=== PATIENT | male | born 1935 | race Caucasian/White ===

== ENCOUNTER 2024-02-16 04:05 | Emergency (ER) | payer MEDICARE, SELFPAY ==
--- NOTE | ~2024-02-16 | CT_ITS ---
EXAMINATION: CT cervical spine wo con DATE: 02/16/2024 04:55 INDICATION: Neck injury. TECHNIQUE: Computed tomography (CT) of the cervical spine was performed without intravenous contrast. Automated exposure control and iterative reconstruction technique were employed. The dose-length pro duct was 445.22 mGy-cm. COMPARISON: CT cervical spine 09/10/2023 FINDINGS: There is kyphosis of cervical spine. There is 2 mm retrolisthesis of C3 on C4 and C4 on C5. There is 12 degrees levoscoliosis of cervical spine. There is mild chronic anterior wedging of C7 an d T1 vertebral bodies. There is severely decreased disc height from C2-C3 through T2-T3. There is int erbody fusion at C3-C4 and C5-C6. 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 There is severe right and modera te left facet joint osteoarthritis. There is mild bilateral neural foraminal stenosis. There is mild central canal stenosis. C3-C4: There is severe bilateral uncovertebral joint hypertrophy. There is moderate bilateral facet j oint osteoarthritis. There is moderate bilateral neural foraminal stenosis. There is moderate central canal stenosis. 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 There is moderate right and mild left facet joint osteoarthritis. There is moderate bilateral neural foraminal stenosis. There is mod erate central canal stenosis. 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 There is moderate bilateral face t joint osteoarthritis. There is moderate bilateral neural foraminal stenosis. There is moderate cent ral canal stenosis. 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 There is mild right and severe l eft facet joint osteoarthritis. There is mild bilateral neural foraminal stenosis. There is mild cent ral canal stenosis. C7-T1: There is severe bilateral uncovertebral joint osteoarthritis. There is severe bilateral facet joint osteoarthritis. There is mild bilateral neural foraminal stenosis. There is mild central canal stenosis. IMPRESSION: 1. No fracture. 2. Severe cervical spondylosis. Reviewed, dictated and finalized at location A. MER TESTER
--- NOTE | ~2024-02-16 | CT_ITS ---
EXAMINATION: CT brain wo con DATE: 02/16/2024 04:54 INDICATION: Head injury. TECHNIQUE: Computed tomography (CT) of the head was performed without intravenous contrast. The mA wa s adjusted according to patient size. Iterative reconstruction technique was employed. The dose-lengt h product was 605.33 mGy-cm. COMPARISON: Head CT 09/10/2023 FINDINGS: There is diffuse brain volume loss. There are scattered areas of low attenuation in the cer ebral white matter. There is no intracranial hemorrhage, acute infarction, or abnormal intracranial m ass lesion. The ventricles are normal in size. There are likely changes of ocular lens replacement bonilla rgeries. There is mucosal thickening in the paranasal sinuses including complete opacification of rig ht maxillary sinus with thickening and sclerosis of the sinus babb, consistent with chronic sinusiti s. The mastoid air cells are normal. IMPRESSION: 1. Stable moderate nonspecific cerebral white matter disease, which likely represents chronic small v essel ischemic disease. 2. Chronic sinusitis. Reviewed, dictated and finalized at location A. GRAPHY TECHNOLOGIST IMPRESSION: 1. Stable moderate nonspecific cerebral white matter disease, which likely repr esents chronic small vessel ischemic disease. 2. Chronic sinusitis.
[2024-02-16 03:59] VITALS: BP 187/76; PULSE 64; RESP 15; TEMP 36.6; O2SAT 100
--- NOTE | 2024-02-16 06:02 | ED.GENADULT ---
HPI - General Adult General Chief complaint: Fall Stated complaint: fall Time Seen by Provider: 02/16/24 04:07 History of Present Illness HPI narrative: Patient is 88-year-old gentleman who presents emergency department with chief complaint of possible head injury. Patient is on Eliquis and fell out of bed the patient reports having no complaint at this time Review of Systems Review of Systems: A 10 system review of systems was completed on the patient and is negative except for what is stated in the HPI. Nursing and ancillary documentation was reviewed. Exam Narrative: GENERAL: Well-appearing, well-nourished, and in no acute distress. HEAD: Normocephalic, atraumatic. EYES: PERRLA and EOMI. ENT: Nares clear, no rhinorrhea or epistaxis. Mucous membranes moist. NECK: Supple. CHEST: Clear to auscultation. No respiratory distress. HEART: Regular rate and rhythm. No murmur heard. Normal peripheral pulses. ABDOMEN: Soft, nontender, nondistended, normal active bowel sounds. EXTREMITIES: Normal range of motion. No edema. SKIN: Warm, dry, no rash. NEURO: No focal deficits. Alert and oriented x1 history of dementia. PSYCH: Normal mood and affect. Course Vital Signs Vital signs: Vital Signs Temperature 36.6 C 02/16/24 03:59 Pulse Rate 64 02/16/24 03:59 Respiratory Rate 15 02/16/24 03:59 Blood Pressure 187/76 H 02/16/24 03:59 Pulse Oximetry 100 02/16/24 03:59 Oxygen Delivery Room Air 02/16/24 03:59 Temperature 36.6 C 02/16/24 03:59 Pulse Rate 64 02/16/24 03:59 Respiratory Rate 15 02/16/24 03:59 Blood Pressure 187/76 H 02/16/24 03:59 Pulse Oximetry 100 02/16/24 03:59 Oxygen Delivery Room Air 02/16/24 03:59 Medical Decision Making [facility] Narrative Medical decision making narrative: Differential diagnosis includes intracranial hemorrhage, cervical spine fracture CT head showed no evidence of hemorrhage there was question of possible normal pressure hydrocephalus. The patient is a DNR comfort care measure CT C-spine showed no evidence of fracture. Vital Signs Vital Signs: Vital Signs Temperature 36.6 C 02/16/24 03:59 Pulse Rate 64 02/16/24 03:59 Respiratory Rate 15 02/16/24 03:59 Blood Pressure 187/76 H 02/16/24 03:59 Pulse Oximetry 100 02/16/24 03:59 Oxygen Delivery Room Air 02/16/24 03:59 Temperature 36.6 C 02/16/24 03:59 Pulse Rate 64 02/16/24 03:59 Respiratory Rate 15 02/16/24 03:59 Blood Pressure 187/76 H 02/16/24 03:59 Pulse Oximetry 100 02/16/24 03:59 Oxygen Delivery Room Air 02/16/24 03:59 Discharge Plan Discharge Clinical Impression: Fall from bed, Head injury Patient Disposition: NH Intermediate/Asst Living Condition: Stable Instructions: Antibiotic Form, Fall Prevention for Older Adults (ED), Head Injury (ED), Fall Prevention (ED) Patient Language: Polish Time of Disposition: 06:05
[2024-02-16 07:40] VITALS: BP 158/75; PULSE 70; RESP 15; O2SAT 95
[2024-02-16 08:06] VITALS: BP 157/90; PULSE 75; RESP 16; TEMP 36.7; O2SAT 99
--- NOTE | 2024-02-16 08:32 | PC.NURSE ---
Attempted to call to give update. No answer. Unable to leave voicemail.
--- NOTE | 2024-02-16 08:48 | PC.NURSE ---
New ETA for [facility] to transport back to [facility] is now 1130.
--- NOTE | 2024-02-16 09:00 | PC.NURSE ---
Spoke with patients on the phone at this time. Given update by this RN.
[2024-02-16 11:35] VITALS: BP 150/92; PULSE 72; RESP 19; TEMP 36.7; O2SAT 98
--- NOTE | 2024-02-16 11:35 | PC.NURSE ---
[facility] is here at this time to transport patient back to [facility]
--- OUTSIDE RECORDS SUMMARY | 2024-02-23 06:44 | XMS_ITS | Continuity of Care Document ---
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 Today was able to extend it by applying some pressure he tolerated that well we then talked about injecting it the patient has dementia his wanted to proceed with the injection today. She states it has helped previously a year and a half ago. Under sterile conditions at her request I injected the patient is right 3rd flexor tendon sheath at the A1 chad with 2 cc 0.5% bupivacaine and 10 mg of Kenalog. Patient tolerated the procedure well. Hopefully this will work for him if not I have advised her to call me in a month we could consider injecting it again. He is not really a candidate for surgical intervention due to dementia and other medical issues. She agreed she would rather avoid surgery. She will call for any further problems difficulties or questions she voiced understanding and agreed with the above plan. X-rays today were unremarkable. [email or web address] Not available 02/09/2024 14:09:28 Plan of Treatment Reminders Order Date Submit Date Provider Last Modified By Organization Details Last Modified Time Details Appointments None recorded. Lab None recorded. Referral None recorded. Procedures injection/a spiration joint/bursa (PROC) 2023 024 [email or web address] In-Office Order, Internal Use Only DO Not Attach Compendium DO Not Attach Compendium, Do Not Delete/merge, [id number] 13:36:02 Surgeries None recorded. Imaging XR, hand 2023 024 [email or web address] [facility] [place], [address], [place], [address], 4 14:10:19 Medication Orders bupivacaine HCl 0.5 % (5 mg/mL) injection solution 2023 024 [email or web address] [facility], [facility] [place], [address], 4 14:03:50 Kenalog 10 mg/mL suspension for injection 2023 024 [email or web address] [facility] [place], [address] [place], [address], 4 14:03:50 Patient TargetsNo targets recorded. Patient InstructionsNo instructions recorded. Reason for Referral None Reported. Results Created Date Observation Date Name Description Value Unit Range Abnormal Flag Note LastModifiedBy Organization Detail LastModifiedTime 02/09/20 24 XR, hand No observ ation record ed. [email or web address] [facility] [place] [address], [place], [address], 02/09/2024 14:10:17 Result Notes None recorded. Problems Name Problem SNOMED Code Status Onset Date Resolution Date Notes Provider Name and Address Organization Details Recorded Time Edema of lower extremity 269539625 Active 2019 Not Available [facility] 3 07:25:54 Trigger finger of left hand 9816784148103 9107 Active 2021 Not Available [facility] 3 07:25:54 Trigger finger of right hand 4252368421305 9101 Active 2021 Not Available [facility] 3 07:25:54 Plantar fasciitis of right foot 7364348657916 9101 Active 2019 Not Available [facility] 3 07:25:54 Hyperchole sterolemia 71074076 Active 2016 Not Available [facility] 3 07:25:54 Ingrowing nail of toe of left foot 7170646123638 9107 Active 2022 Not Available [facility] 3 07:25:54 Dry skin 63903565 Active 2021 Not Available [facility] 3 07:25:54 Insomnia 679917279 Active 2017 Not Available [facility] 3 07:25:54 Anxiety disorder 043637257 Active Not Available [facility] 3 07:25:54 Abdominal pain 55727857 Active Not Available [facility] 3 07:25:54 Gastroesop hageal reflux disease 329231490 Active Not Available [facility] 3 07:25:54 Sodium deficiency 486559978 Active Not Available [facility] 3 07:25:54 Edema 483888366 Active Not Available [facility] 3 07:25:54 Pure hyperchole sterolemia 753582177 Active Not Available [facility] 3 07:25:54 Pain in toe 509202810 Active Not Available [facility] 3 07:25:54 Pain of toe of left foot 3226933051843 08 Active 2020 Not Available [facility] 3 07:25:54 Acquired trigger finger of right middle finger 7177921936638 05 Active 2021 Not Available [facility] 3 07:25:54 Arthritis 0314051 Active 2016 Not Available [facility] 3 07:25:54 Hypertensi ve disorder 44826766 Active 2016 Not Available [facility] 3 07:25:54 Ingrowing toenail 979658878 Active 2021 Not Available [facility] 3 07:25:54 Onychomyco sis 672113295 Active 2018 Not Available [facility] 3 07:25:54 Chronic peripheral venous hypertensi on 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 Active 2021 Not Available [facility] 3 07:25:54 Hypokalemi a 19409629 Active 2021 Not Available [facility] 3 07:25:54 Hand pain 77161973 Active 2021 Not Available [facility] 3 07:25:54 Contusion of toe 51358899 Active 2020 Not Available [facility] 3 07:25:54 Essential hypertensi on 89748949 Active Not Available [facility] 3 07:25:54 COVID-19 582256340 Active 2021 Not Available [facility] 3 07:25:54 Dystrophia unguium 51500305 Active 2022 Not Available [facility] 3 07:25:54 Hyponatrem ia 59122473 Active 2016 Not Available [facility] 3 07:25:54 Bilateral hearing loss 49788018 Active 2021 Not Available [facility] 3 07:25:54 Peripheral venous insufficie ncy 48312822 Active 2022 Not Available [facility] 3 07:25:54 Lymphedema of lower extremity 260048372 Active 2022 Not Available [facility] 3 07:25:54 Ulcer of lower extremity 60474434 Active 2022 Not Available [facility] 3 07:25:54 Persistent cough 725643792 Active 2022 Not Available [facility] 3 07:25:54 Cough 30352963 Active 2022 Not Available [facility] 3 07:25:54 Fatigue 81109926 Active 2022 Not Available [facility] 3 07:25:54 Memory impairment 969399973 Active 2022 Not Available [facility] 3 07:25:54 Muscle weakness 41943686 Active 2023 RAYMOND Montesinos null, [facility] 4 12:11:53 Impacted cerumen of bilateral ears 5790952934649 108 Active 2023 DEEPIKA Houser [address], [place], [address] , [facility] [employer] [facility] 4 10:25:49 Hand pain 08636706 Active 2023 Nury Otero [employer] [employer], [facility] [employer] [facility] 4 13:34:32 Notes:Some problems listed i n Document: #[id number] could not be added to this patient's chart. Please review this document and add these problems to the patient's chart manually as needed. Problem Notes None recorded. Procedures Surgical History Date Name Laterality Status Provider Name and Address Organization Details Recorded Time 11/18/19 Wound Care-Podiatry completed Gary Lee RN [facility] [employer] [facility] 11/17/2022 15:45:29 10/21/19 23 Wound Care-Podiatry completed Sally Kilgore RN [facility] [employer] [facility] 10/20/2022 15:12:18 10/14/19 23 Wound Care-Podiatry completed Gary Lee RN [facility] [employer] [facility] 10/13/2022 16:43:47 07/30/19 23 Nail Debridement completed Alexei Mendez DPM [address], [place], [address], [facility] [employer] [facility] 08/05/2022 13:06:25 06/04/19 17 Cataract Surgery completed Not Available [facility] 02/2022 00:54:26 03/20/19 14 Colonoscopy completed Not Available [facility] 04/22/19 00:54:26 Tonsillectomy and/or Adenoidectomy completed Not Available [facility] 04/21/2022 00:54:26 Imaging Results Imaging Date Name Status LastModified by Organiz ation Details LastModified Time 02/09/2024 XR, hand completed [email or web address] [facility] [place] [address], [place], [address], 02/09/2024 14:10:17 Procedure Notes None recorded. Medical Equipment None Reported. Allergies No known drug allergies Medications Name Sig Start Date Stop Date Status Note LastModified by Organization Details LastModified Time quetiapin e 25 mg tablet TAKE 1 TABLET BY MOUTH EVERY NIGHT AT BEDTIME NEEDED active Not Available Not Available No t Available furosemid e 40 mg tablet TAKE 1 TABLET BY MOUTH EVERY DAY active Not Available Not Available No t Available buspirone 5 mg tablet TAKE ONE-HALF TABLET BY MOUTH TWICE DAILY active Not Available Not Available No t Available doxycycli ne hyclate 100 mg capsule active Not Available Not Available Not Available atorvasta tin 20 mg tablet TAKE 1 TABLET BY MOUTH EVERY DAY active Not Available Not Available No t Available ipratropi um 0.5 mg-albute rol 3 mg (2.5 mg base)/3 mL nebulizat ion soln active Not Available Not Available Not Available ammonium lactate 12 % lotion APPLY TO BOTH FEET AND LOWER LEGS DAILY NEEDED active Not Available Not Available No t Available divalproe x 250 mg tablet,de layed release active Not Available Not Available Not Available trazodone 50 mg tablet TAKE 1 TABLET BY MOUTH EVERY DAY active Not Available Not Available No t Available atorvasta tin 10 mg tablet Take 1 tablet every day by oral route as directed for 90 days. active Not Available Not Available No t Available azithromy jacoby 250 mg tablet TAKE 2 TABLETS BY MOUTH TODAY, THEN TAKE 1 TABLET DAILY FOR 4 DAYS 11/04 completed Not Available Not Available Not Available ofloxacin 0.3 % eye drops 11/04 completed Not Available Not Available Not Available fluconazo le 150 mg tablet 05/20 completed Not Available Not Available Not Available metoprolo l succinate ER 50 mg tablet,ex tended release 24 hr TAKE 1 TABLET BY MOUTH EVERY DAY active Not Available Not Available No t Available cephalexi n 250 mg capsule TAKE 1 CAPSULE BY MOUTH EVERY 8 HOURS FOR 10 DAYS 10/13 completed Not Available Not Available Not Available fluconazo le 200 mg tablet TAKE 1 TABLET BY MOUTH ONE TIME A WEEK FOR 4 WEEKS 05/20 completed Not Available Not Available Not Available bupivacai ne HCl 0.5 % (5 mg/mL) injection solution Take 20 mg by injectio n route. 12/19/ 2024 active Not Available Not Available Not Avai lable prednison e 20 mg tablet TAKE 2 TABLETS BY MOUTH EVERY DAY FOR 5 DAYS active Not Available Not Available No t Available Debrox 6.5 % ear drops INSTILL 5 DROPS INTO AFFECTED EAR(S) BY OTIC ROUTE 2 TIMES PER DAY 2023 active Not Available Not Available Not Avai lable clobetaso l 0.05 % topical cream 05/20 completed Not Available Not Available Not Available thiamine HCl (vitamin B1) 100 mg tablet Take by oral route. 06/07 completed Not Available Not Available Not Available bacitraci n 500 unit/gram topical ointment APPLY ONCE BY TOPICAL ROUTE 2 TIMES PER DAY FOR 7 DAYS 06/01 completed Not Available Not Available Not Available Klor-Con 20 mEq oral packet MIX ONE PACKET IN WATER AND DRINK ONCE DAILY DIRECTED active Not Available Not Available No t Available chlorthal idone 25 mg tablet TAKE 1 TABLET BY MOUTH DAILY active Not Available Not Available No t Available sulfameth oxazole 800 mg-trimet hoprim 160 mg tablet bid 10/13 completed Not Available Not Available Not Available Bisac-Nina c 10 mg rectal supposito ry UNW AND INSERT 1 SUPPOSIT ORY RECTALLY UTD 04/10 completed Not Available Not Available Not Available peg-elect rolyte solution 420 gram oral solution MIX AND DRINK UTD 09/20 completed Not Available Not Available Not Available aspirin 81 mg tablet,de layed release Take 1 tablet once a day by oral route. 2013 active Not Available Not Available Not Avai lable acetamino phen 500 mg tablet Take 2 tablets every 6 hours by oral route. active Not Available Not Available No t Available triamcino lone acetonide 0.1 % topical cream APPLY TOPICALL Y TWICE DAILY FOR 30 DAYS NEEDED FOR ITCHING/ RASH SCATTERE D TO BODY active Not Available Not Available No t Available acyclovir 800 mg tablet 05/20 completed Not Available Not Available Not Available ketorolac 0.5 % eye drops 11/04 completed Not Available Not Available Not Available meloxicam 7.5 mg tablet Take 1 tablet every day by oral route for 14 days. 05/20 completed Not Available Not Available Not Available terbinafi ne HCl 250 mg tablet 03/30 /2021 completed Not Available Not Available Not Available potassium chloride ER 20 mEq tablet,ex tended release(p art/cryst ) TAKE 1 TABLET BY MOUTH EVERY DAY active Not Available Not Available No t Available famotidin e 20 mg tablet active Not Available Not Available Not Available prednisol one acetate 1 % eye drops,valery pension INSTILL 1 DROP INTO AFFECTED EYE(S) 3 TIMES PER DAY STARTING AFTER SURGERY, CONTINUI NG FOR 3 WEEKS 11/04 completed Not Available Not Available Not Available lorazepam 0.5 mg tablet active Not Available Not Available Not Available tamsulosi n 0.4 mg capsule TAKE 1 CAPSULE BY MOUTH EVERY DAY active Not Available Not Available No t Available ciproflox acin 0.3 % eye drops 09/28 completed Not Available Not Available Not Available Kenalog 10 mg/mL suspensio n for injection Take 10 mg by injectio n route. 2023 active [facility]: [phone] Not Available Not Available Not Available amlodipin e 10 mg tablet Take 1 tablet every day by oral route. 09/18 completed Not Available Not Available Not Available benzonata te 100 mg capsule TAKE 1 CAPSULE BY MOUTH EVERY 8 HOURS NEEDED active Not Available Not Available No t Available doxycycli ne monohydra te 100 mg capsule tid 08/01 completed Not Available Not Available Not Available cephalexi n 500 mg capsule TAKE 1 CAPSULE BY MOUTH EVERY 8 HOURS FOR 10 DAYS active Not Available Not Available No t Available simvastat in 20 mg tablet qd 05/20 completed Not Available Not Available Not Available triamcino lone acetonide 0.1 % topical ointment 05/20 completed Not Available Not Available Not Available ranitidin e 150 mg tablet OTC 05/20 completed Not Available Not Available Not Available buspirone 10 mg tablet active Not Available Not Available Not Available prednison e 50 mg tablet 05/20 completed Not Available Not Available Not Available divalproe x 125 mg tablet,de layed release TAKE 2 TABLETS BY MOUTH TWICE A DAY active Not Available Not Available No t Available metoprolo l tartrate 50 mg tablet active Not Available Not Available Not Available betametha sone dipropion ate 0.05 % topical cream 09/18 completed Not Available Not Available Not Available felodipin e ER 10 mg tablet,ex tended release 24 hr Take 1 tablet every day by oral route. 04/10 completed Not Available Not Available Not Available bumetanid e 1 mg tablet active Not Available Not Available Not Available hydrocort isone 2.5 % topical cream active Not Available Not Available Not Available hydrochlo rothiazid e 25 mg tablet 04/10 completed Not Available Not Available Not Available mupirocin 2 % topical ointment active Not Available Not Available Not Available furosemid e 20 mg tablet active Not Available Not Available Not Available levofloxa jacoby 500 mg tablet active Not Available Not Available No t Available zolpidem 10 mg tablet TAKE 1 TABLET BY MOUTH EVERYDAY AT BEDTIME active Not Available Not Available No t Available methylpre dnisolone 4 mg tablets in a dose pack TAKE 6 TABLETS ON DAY 1 DIRECTED ON PACKAGE AND DECREASE BY 1 TAB EACH DAY FOR A TOTAL OF 6 DAYS 01/27 completed Not Available Not Available Not Available ketoconaz ole 2 % topical cream APPLY TO AFFECTED AREAS OF GROIN TWICE DAILY FOR 30 DAYS active Not Available Not Available No t Available hydroxyzi ne HCl 10 mg tablet TAKE 1 2 TABLETS BY MOUTH EVERY 6 8 HOURS NEEDED FOR ITCH 05/20 completed Not Available Not Available Not Available losartan 100 mg tablet TAKE 1 TABLET BY MOUTH EVERY DAY active Not Available Not Available No t Available fluticaso ne propionat e 50 mcg/actua tion nasal spray,[facility] 04/08 completed Not Available Not Available Not Available sertralin e 50 mg tablet active Not Available Not Available Not Available divalproe x 125 mg capsule,d elayed release sprinkle active Not Available Not Available Not Available tobramyci n 0.3 %-dexamet hasone 0.1 % eye drops,[facility] 04/08 completed Not Available Not Available Not Available hydroxyzi ne pamoate 25 mg capsule active Not Available Not Available Not Available olmesarta n 40 mg tablet TAKE 1 TABLET BY MOUTH EVERY DAY 11/04 completed Not Available Not Available Not Available Vitamin D3 25 mcg (1,000 unit) capsule Take by oral route. 2016 active Not Available Not Available Not Avai lable Benicar HCT 20 mg-12.5 mg tablet Take 1 tablet every day by oral route. 05/10 completed Not Available Not Available Not Available Benicar HCT 40 mg-25 mg tablet Take 1 tablet every day by oral route. 05/20 completed Duplicat e Not Available Not Available Not Available memantine 5 mg tablet TAKE 1 TABLET BY MOUTH EVERY DAY FOR 30 DAYS 2023 active Not Available Not Available Not Avai lable Tylenol OTC 2016 active Not Available Not Available Not Avai lable lycopene 2016 active Not Available Not Available Not Avai lable PreserVis ion AREDS 2016 active Not Available Not Available Not Avai lable brimonidi ne 0.2 %-timolol 0.5 % eye drops INSTILL 1 DROP INTO BOTH EYES TWICE A DAY active Not Available Not Available No t Available Bystolic 5 mg tablet TAKE ONE TABLET BY MOUTH ONCE DAILY DIRECTED FOR 90 DAYS 10/08 completed Not Available Not Available Not Available dextromet horphan 20 mg-quinid ine 10 mg capsule Take 1 capsule twice a day by oral route. active Not Available Not Available No t Available ropivacai ne (PF) 5 mg/mL (0.5 %) injection solution in office 11/04 completed [facility] 97609-96 05-22 Not Available Not Available Not Available Eliquis 5 mg tablet active Not Available Not Available No t Available glucosami ne 116 mg-chondr oitin 100 mg-dietar y supplemen t #25 capsule Take by oral route. 12/01 completed Not Available Not Available Not Available Farxiga 5 mg tablet TAKE 1 TABLET BY MOUTH EVERY DAY active Not Available Not Available No t Available potassium chloride ER 20 mEq tablet,ex tended release TAKE 1 TABLET BY MOUTH EVERY DAY 2022 active Not Available Not Available Not Avai lable Rexulti 1 mg tablet active Not Available Not Available No t Available Paxlovid 300 mg (150 mg x 2)-100 mg tablets in a dose pack 300 mg nirmatre lvir (two 150 mg tablets) with 100 mg ritonavi r (one 100 mg tablet) with all three tablets taken together orally twice daily for 5 days. Do not take atorvast atin for 7 days active Not Available Not Available No t Available Lagevrio 200 mg capsule (EUA) Take 4 capsules every 12 hours by oral route for 5 days. active Not Available Not Available No t Available Vitals Date Recorded Body height Body mass index (BMI) Body weight Provider Name and Address Organization Details Last Updated DateTime 02/09/2024 167.64 cm 29.1 kg/m2 51970.63 g Mag Renae [place] [facility] 02/09/2024 13:41:48 Social History Question Answer Notes LastModified by Organization Details LastModified Time Tobacco Smoking Status Former Smoker Not Available [facility] 04/21/2022 00:52:21 Do You Have An Advance Directive? No [email or web address].[id number] [id number] Information not available 04/21/2022 What Is Your Level Of Alcohol Consumption? Moderate Patient Reported One Mixed Drink A Night. [id number].0301 [id number] Information not available 04/21/2022 Are You Blind Or Do You Have Difficulty Seeing? No MIGRATION.0301 [id number] Information not available 04/21/2022 What Is Your Level Of Caffeine Consumption? Moderate MIGRATION.0301 [id number] Information not available 04/21/2022 How Much Tobacco Do You Chew? None [email or web address].0301 [id number] Information not available 04/21/2022 In The 14 Days Before Symptom Onset, Have You Had Close Contact With A Laboratory-conf irmed COVID-19 While That Case Was Ill? No MIGRATION.0301 [id number] Information not available 04/21/2022 In The 14 Days Before Symptom Onset, Have You Had Close Contact With A Person Who Is Under Investigation For COVID-19 While That Person Was Ill? No [id number].0301 [id number] Information not available 04/21/2022 Are You Currently Employed? No Information not available 06/01/2022 Are You Deaf Or Do You Have Serious Difficulty Hearing? Yes Patient Wears Bilateral Hearing Aids; Still Having A Hard Time Hearing Information not available 06/01/2022 What Type Of Diet Are You Following? REGULAR MIGRATION.0301 [id number] Information not available 04/21/2022 Which Illicit Or Recreational Drugs Have You Used? None MIGRATION.0301 [id number] Information not available 04/21/2022 Do You Or Have You Ever Used E-cigarettes Or Vape? Never Used Electronic Cigarettes MIGRATION.0301 [id number] Information not available 04/21/2022 What Is The Highest Grade Or Level Of School You Have Completed Or The Highest Degree You Have Received? [id number] MIGRATION.0301 [id number] Information not available 04/21/2022 What Is Your Occupation? RETIRED MIGRATION.030 [id number] Information not available 04/21/2022 How Many Days Of Moderate To Strenuous Exercise, Like A Brisk Walk, Did You Do In The Last 7 Days? 0 MIGRATION.0301 [id number] Information not available 04/21/2022 Have There Been Any Changes To Your Family Or Social Situation? No MIGRATION.0301 [id number] Information not available 04/21/2022 What Is The Fluoride Status Of Your Home? Unknown MIGRATION.0301 [id number] Information not available 04/21/2022 When Did You Quit Smoking? 17+yearssincelastc igarette MIGRATION.030 [id number] Information not available 04/21/2022 Are There Any Guns Present In Your Home? No MIGRATION.0301 [id number] Information not available 04/21/2022 Do You Use Insect Repellent Routinely? No MIGRATION.0301 [id number] Information not available 04/21/2022 Where Do You Live? SingleLevelHouse MIGRATION.0301 [id number] Information not available 04/21/2022 Do You Have A Medical Power Of Textile Machine Operator? No MIGRATION.0301 [id number] Information not available 04/21/2022 What Was The Date Of Your Most Recent Tobacco Screening? 01/27/2023 [email or web address] Information not available 01/27/2023 Have You Ever Been Counseled For Unhealthy Alcohol Use? No MIGRATION.0301 [id number] Information not available 04/21/2022 Do You Have Any Pets? No MIGRATION.0301 [id number] Information not available 04/21/2022 What Is Your Relationship Status? MIGRATION.0301 [id number] Information not available 04/21/2022 Do You Use Your Seat Belt Or Car Seat Routinely? Yes MIGRATION.0301 [id number] Information not available 04/21/2022 Do You Have Smoke And Carbon Monoxide Detectors In Your Home? Yes MIGRATION.0301 [id number] Information not available 04/21/2022 Are You Passively Exposed To Smoke? Yes MIGRATION.0301 [id number] Information not available 04/21/2022 Do You Or Have You Ever Used Smokeless Tobacco? Never Used Smokeless Tobacco MIGRATION.0301 [id number] Information not available 04/21/2022 Are There Any Smokers In Your House? No MIGRATION.0301 [id number] Information not available 04/21/2022 How Much Tobacco Do You Smoke? No MIGRATION.0301 [id number] Information not available 04/21/2022 What Types Of Sporting Activities Do You Participate In? None MIGRATION.0301 [id number] Information not available 04/21/2022 Do You Feel Stressed (tense, Restless, Nervous, Or Anxious, Or Unable To Sleep At Night)? [id number] MIGRATION.0301 [id number] Information not available 04/21/2022 Do You Use Any Illicit Or Recreational Drugs? No MIGRATION.[id number] [id number] Information not available 04/21/2022 Do You Use Sunscreen Routinely? No MIGRATION.0301 [id number] Information not available 04/21/2022 Has Tobacco Cessation Counseling Been Provided? No MIGRATION.0301 [id number] Information not available 04/21/2022 Have You Recently Traveled Abroad? No MIGRATION.0301 [id number] Information not available 04/21/2022 Do You Have Any Dietary Restrictions? No MIGRATION.0301 [id number] Information not available 04/21/2022 Do You Or Have You Ever Used Any Other Forms Of Tobacco Or Nicotine? No MIGRATION.0301 [id number] Information not available 04/21/2022 Sex: Male Functional Status Question Answer Note LastModified by [employer] Details LastModified Time Do you have difficulty walking or climbing stairs? Yes MIGRATION.[id number] 026 Information not available 04/21/2022 Do you have transportation difficulties? No MIGRATION.[id number] 026 Information not available 04/21/2022 Are you able to walk? YESWOREST MIGRATION.[id number] 026 Information not available 04/21/2022 Do you have difficulty doing errands alone? Yes MIGRATION.[id number] 026 Information not available 04/21/2022 Are you able to care for yourself? Yes MIGRATION.3157303 026 Information not available 04/21/2022 Do you have difficulty dressing or bathing? No MIGRATION.8849302 026 Information not available 04/21/2022 What is your exercise level? None MIGRATION.[id number] 026 Information not available 04/21/2022 Mental Status Question Answer Note LastModified by Organizat ion Details LastModified Time Do you have difficulty concentrating, remembering or making decisions? Yes MIGRATION.[id number] 6 Information not available 04/21/2022 Family History Relationship Description Onset Age of this Age Resolved Age Notes LastModified by Organization Details LastModified Time Mother Myocardial infarction 69 MIGRATION.824 [id number] Not available 04/21/2022 00:54:34 Father Alzheimer's disease 75 MIGRATION.110 [id number] Not available 04/21/2022 00:54:34 Brother Cerebrovascu lar accident 78 MIGRATION.721 [id number] Not available 04/21/2022 00:54:34 Brother Alzheimer's disease deceas ed MIGRATION.257 [id number] Not available 04/21/2022 00:54:34 Brother Myocardial infarction MIGRATION.356 [id number] Not available 04/21/2022 00:54:34 Unspecified Relation Family history of Hypertension MIGRATION.834 [id number] Not available 04/21/2022 00:54:34 Son Atrial fibrillation Not available 0 11/04/2022 14:44:06 Notes:NO ENT Medical History Condition Response NERVE DISEASE N BLINDNESS N RHEUMATIC FEVER N KIDNEY STONES N BLADDER PROBLEMS N MRSA N OTHER # 1 Y POLIO N LUNG DISEASE/DISORDER Y COPD N RADIATION / CHEMOTHERAPY N Other # 2 N BLOOD DISEASES N SURGERY N EAR OR HEARING PROBLEMS N MUMPS N DEPRESSION (INCLUDING POST ) N BOWEL PROBLEMS N STROKE/TIA N ULCERS N BENIGN PROSTATIC HYPERPLASIA N MEASLES N MYOCARDIAL INFARCTION N OBESITY N GERD/NAUSEA N ANEURYSM N URINARY/BLADDER/KIDNEY PROBLEMS Y CORONARY ARTERY DISEASE (CAD) N ADDICTION CONCERNS N Impotence N ENDOMETRIOSIS N USE OF BLOOD THINNERS Y SKIN PROBLEMS Y GASTROINTESTINAL DISORDER Y PERIPHERAL VASCULAR DISEASE N MUSCLE,JOINT OR BONE PROBLEMS N GASTROINTESTINAL BLEEDING N BLOOD CLOTS Y ASTHMA N CATARACTS N ERECTILE DYSFUNCTION N VARICOSITIES N GI PROBLEMS Y Low Testosterone N INFERTILITY N AIDS/HIV N CHEMOTHERAPY / RADIATION N LIVER DISEASE N MALE HYPOGONADISM N HYPERTENSION Y Deficiency N ANXIETY DISORDER Y BLOOD TRANSFUSION N ANEMIA/BLOOD DISORDER N CHRONIC EAR INFECTIONS N BRONCHITIS N TUBERCULOSIS N GLAUCOMA N FOOT PROBLEM N DIVERTICULITIS N CHICKENPOX N SLEEP APNEA N INFECTIOUS DISEASE N HEART ARRHYTHMIA N PROSTATE Y INSOMNIA Y HIGH CHOLESTEROL / HYPERLIPIDEMIA Y EYE PROBLEMS Y HYPERTHYROIDISM N NEUROLOGICAL PROBLEMS N EDEMA N CHRONIC PAIN SYNDROME N HYPOTHYROIDISM N CAROTID BLOCKAGE N CONSTIPATION N BACK / NECK PROBLEMS N HAVE YOU BEEN HOSPITALIZED OR SEEN IN TH E ER IN THE PAST YEAR ? Y ATHEROSCLEROSIS N BREAST PROBLEMS N DIALYSIS N ECZEMA N OSTEOPOROSIS N ARTHRITIS N APPENDICITIS N DIABETES, TYPE N BAD TEETH N ENT Y HEARTBURN / REFLUX N AUTISM SPECTRUM DISORDER (ASD) N HEPATITIS / LIVER DISEASE N GOUT N SLEEP DISORDER N ALZHEIMER'S DISEASE N Brain Problems N HERPES N DEMENTIA N SEIZURES/EPILEPSY N HEADACHES/MIGRAINES N VASCULAR DISEASE Y PACEMAKER N Blood Disorder N DIZZINESS N KIDNEY DISEASE N HEART DISEASE/HEART PROBLEMS N MULTIPLE SCLEROSIS N CARDIAC ARRHYTHMIA N CANCER: SPECIFY N Gall Stones N ATRIAL FIBRILLATION N PULMONARY EMBOLISM N AUTOIMMUNE DISEASE N Immunizations Vaccine Type Date Status Note Provider Nam e and Address Organization Details Recorded Time Influenza, high-dose, trivalent, PF 7 completed Not Available [facility] 03/30/2023 07:12:14 Influenza, split virus, trivalent, preservative 6 completed Not Available [facility] 03/30/2023 07:12:14 COVID-19, mRNA, LNP-S, PF, 30 mcg/0.3 mL dose 1 completed Not Available [facility] 03/30/2023 07:12:14 COVID-19, mRNA, LNP-S, PF, 30 mcg/0.3 mL dose 1 completed Not Available [facility] 03/30/2023 07:12:14 influenza, unspecified formulation 5 completed Not Available [facility] 03/30/2023 07:12:14 Influenza, high-dose, quadrivalent, PF 2 completed Not Available [facility] 03/30/2023 07:12:14 Influenza, high-dose, quadrivalent, PF 0 completed Not Available [facility] 03/30/2023 07:12:14 Influenza, high-dose, trivalent, PF 8 completed Not Available [facility] 03/30/2023 07:12:14 Past Encounters Encounter ID Performer Location Encounter Start Date Encounter Closed Date Diagnosis/Indication Diagnosis SNOMED-CT Code Diagnosis ICD10 Code [id number] EUGENIA Wooten [facility] [address] [place] [address] 02/09/2024 13:24:06 02/09/2024 14:02:05 Acquired trigger finger of right middle finger [id number] 92789 M65.331 Hand pain [id number] M79.6 43 Health Concerns Section Related Observation LastModified by Organization Detai ls LastModified Time None Recorded Concern Status LastModified by Organization Details LastModified Time None Recorded Payers Encounter Date Sequence Insurance Name Policy Number Policy Thomas Covered Member ID Thomas Member ID Guarantor Name 02/09/2024 1 MEDICARE B: [facility] MEDICARE Christiano Price [id number] Christiano Angel Albert 02/09/2024 2 [id number]PP[place]) [id number] Christiano Price [id number] Christiano Price Notes Date Note Type Note Provider Name and Address Organization Details Recorded Time 02/09/2024 text/html The patient is a n 88-year-old male who presents with a 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 He was last seen by Dr. Urias a year and a half ago and a shot of cortisone gave him good relief. He comes in today with his finger locked into flexion he and his are unable to extend it she is also elderly and so she has a difficult time trying to get his finger straight. He has a lot of pain and tenderness in the flexor tendon sheath and basically sits with his hand and fingers flexed all day. He has a hard time feeding himself and holding a utensil because he has his middle finger locked down. He also has dementia and is a intermediate resident. He is not a great candidate for surgical intervention she would rather try to get by with conservative measures. She states the past few weeks his finger has been locked completely and he has very limited use of his hand because of that. He is complaining of pain and tenderness in the palm on the flexor tendon sheath. She states he has had a chronic trigger finger but is much worse lately. New past medical history sheet was reviewed and signed on the intake sheet of today's date drug allergies current medications family social history previous surgical history 10 point review of systems was reviewed and discussed in detail today with the patient. EUGENIA Wooten [address] [facility], [facility] [address], [place], [address], [place] [employer] 02/09/2024 14:11:15
--- OUTSIDE RECORDS SUMMARY | 2024-02-23 06:44 | XMS_ITS | Data Portability ---
Author Organization [place] [facility], Main Office Address [address] [place] [address] Care Team Providers Care Cue Selector Name Role Phone DENNIS PAYAN Primary Care Provider DENNIS PAYAN Referring Provider [phone] Assessment Encounter Date Assessment Date Assessment LastModified by Organization Details LastModified Time 11/04/2022 11/04/2022 Chest x-ray continue current therapy follow-up in 4 months Not available 11/07/2022 15:19:41 01/27/2023 01/27/2023 Prednisone for a week for his cough diuretic usage discussed he will try 20 m of furosemide daily too much running to the bathroom in the middle night on 40 he will follow-up with me in about 4 months the let me know if his cough isn't better in a week or so some blood work for fatigue and memory loss. It was also discussed with the with the patient that use of sleeping aids can make memory loss worse [email or web address] Not available 01/28/2023 10:40:21 02/09/2024 02/09/2024 By history and exam the [...] Modified Time Details Appointments None recorded. Lab lipid panel, serum 2022 023 [facility], [address] [place] [address] [place], [address], 3 20:15:49 CMP, serum or plasma 2022 023 [facility], [address] [place] [address] [place], [address], 3 20:16:04 vitamin B12 + folate, serum or blood 2022 023 [email or web address] [facility], [address] [place] [address] [place], [address], 3 09:59:36 TSH, serum or plasma 2022 023 [facility], [address] [place] [address] [place], [address], 3 20:47:22 CBC w/ auto diff 2022 023 [facility], [address] [place] [address] [place], [address], 4 23:57:23 T4, free, serum [address] [place], [address], 3 20:38:47 T3, free, serum or plasma 2022 023 [facility], [address] [place] [address] [place], [address], 3 20:38:52 Referral None recorded. Procedures cerumen removal (PROC) 2023 024 [email or web address] In-Office Order, Internal Use Only DO Not Attach Compendium DO Not Attach Compendium, Do Not Delete/merge, [id number] 4 12:29:37 injection/a spiration joint/bursa (PROC) 2023 024 [email or web address] In-Office Order, Internal Use Only DO Not Attach Compendium DO Not Attach Compendium, Do Not Delete/merge, [id number] 4 13:36:02 Surgeries None recorded. Imaging XR, chest, 2 view 2022 023 [facility] [address] [place], [address], 3 20:36:02 XR, hand 2023 024 [email or web address] [facility] [place], [address], [place], [address], 4 14:10:19 Medication Orders prednisone 20 mg tablet 2022 023 [email or web address] [facility], [address] [place], [address], 3 16:33:19 Debrox 6.5 % ear drops 2023 024 [facility] [employer] [facility], [facility] [place], [address], 4 12:38:52 bupivacaine HCl 0.5 % (5 mg/mL) injection solution 2023 024 [email or web address] [facility] [employer] [facility], [facility] [place], [address], 4 14:03:50 Kenalog 10 mg/mL suspension for injection 2023 024 [email or web address] [facility] [employer], [address] [place], [address], 14:03:50 Patient TargetsNo targets recorded. Patient Instructions Encounter Date Encounter Id Patient Instructions Last Modified By Organization Details Last Modified Time 11/02/2023 [id number] Discussed with patient's spouse inability to safely remove cerumen impaction given his advanced dementia and inability to cooperate during procedure. Advised use of Debrox drops for cerumen softening. Patient's spouse verbally understands care plan. Not available 11/02/2023 10:37:47 Reason for Referral None Reported. Results Created Date Observation Date Name Description Value Unit Range Abnormal Flag Note LastModifiedBy Organization Detail LastModifiedTime 01/28/2001/27/2023 LIPID PANEL cholesterol 165 mg/dL 140-19 9 NIH RASHMI NSUS RECOM MENDA TION FOR ELVIS STERO L: ADULT CHILD LOW RISK: <200 <170 BORDE RLINE : <200- 239 ----- HIGH RISK: >240 >200 Not Available [facility] (Lab) [address] [place], [address], 01/27/2023 20:15:49 01/28/2001/27/2023 LIPID PANEL triglyceride s 162 mg/dL 0-150 high NIH RASHMI NSUS REPOR T RECOM MENDA TION FOR TRIGL YCERI JEROME: ADULT CHILD LOW RISK: <150 ----- BODER LINE: 150-1 99 ----- HIGH RISK: >200 ----- Not Available [facility] (Lab) [address] [place], [address], 01/27/2023 20:15:49 01/28/2001/27/2023 LIPID PANEL HDL cholesterol 46 mg/dL 40- Not Available [facility] (Lab) [address] [place], [address], 01/27/2023 20:15:49 01/28/20 23 01/27/2023 LIPID PANEL LDL cholesterol, calculated 87 mg/dL 0-130 NIH RASHMI NSUS REPOR T RECOM MENDA TIONS FOR LDL: ADULT CHILD LOW RISK <130 <110 (OPTI MAL LDL) <100 ----- BORDE RLINE : 130-1 59 ----- HIGH RISK: >160 >130 A TRIGL YCERI DE RESUL T >400 INVAL IDATE S THE CALCU LATIO N FOR LDL FRACT IONAT ION - THE LDL RESUL T WILL NOT BE REPOR AURE. Not Available [facility] (Lab) [address] [place], [address], 01/27/2023 20:15:49 01/28/20 23 01/27/2023 COMPR EHENS ERIC METAB OLIC PANEL sodium 138 mmol/ L 137-14 5 Not Available [facility] (Lab) [address] [place], [address], 01/27/2023 20:16:04 01/28/20 23 01/27/2023 COMPR EHENS ERIC METAB OLIC PANEL potassium 4.2 mmol/ L 3.5-5. 1 Not Available [facility] (Lab) [address] [place], [address], 01/27/2023 20:16:04 01/28/20 23 01/27/2023 COMPR EHENS ERIC METAB OLIC PANEL chloride 104 mmol/ L 98-107 Not Available [facility] (Lab) [address] [place], [address], 01/27/2023 20:16:04 01/28/20 23 01/27/2023 COMPR EHENS ERIC METAB OLIC PANEL carbon dioxide 28 mmol/ L 22-30 Not Available [facility] (Lab) [address] [place], [address], 01/27/2023 20:16:04 01/28/20 23 01/27/2023 COMPR EHENS ERIC METAB OLIC PANEL anion gap 10.2 mmol/ L 14-22 low Not Available [facility] (Lab) [address] [place], [address], 01/27/2023 20:16:04 01/28/20 23 01/27/2023 COMPR EHENS ERIC METAB OLIC PANEL glucose 97 mg/dL 70-99 Not Available [facility] (Lab) [address] [place], [address], 01/27/2023 20:16:04 01/28/20 23 01/27/2023 COMPR EHENS ERIC METAB OLIC PANEL BUN 23 mg/dL 8-19 high Not Available [facility] (Lab) [address] [place], [address], 01/27/2023 20:16:04 01/28/20 23 01/27/2023 COMPR EHENS ERIC METAB OLIC PANEL creatinine 1.30 mg/dL 0.66-1 .25 high Not Available [facility] (Lab) [address] [place], [address], 01/27/2023 20:16:04 01/28/20 23 01/27/2023 COMPR EHENS ERIC METAB OLIC PANEL GFR 52 Refer ence Range : Arbon ge GFR Healt hy Adult : >60 mL/mi n/1.7 3 m2 Chron ic Kidne y Disea se: 15-60 mL/mi n/1.7 3 m2 Kidne y Failu re: <15/m L/min /1.73 m2 www.n iddk. nih.g ov The MDRD study equat ion has not been valid ated in child melany <18 years of age; pregn ant women ; the elder ly >85 years of age; or in some racia l or ethni c subgr oups, such as Hispa nics. Outsi de the valid ated yg eters , estim ated GFR is less accur ate, requi ring clini shawna judgm ent on a case- by-ca se basis . Clini shawna inter preta tion for other races and ages must be made by the clini cara. The MDRD study equat ion has not been valid ated for the evalu ation of serum creat inine relat ed to nutri brandi l statu s or medic ation usage . For perso ns <18 years of age, a pedia tric GFR calcu lator is avail able on the [facility] websi te: https ://sarah yoo.o solitario/pr ofess ional s/kdo qi/gf r_cal culat or Not Available [facility] (Lab) [address] [place], [address], 01/27/2023 20:16:04 01/28/20 23 01/27/2023 COMPR EHENS ERIC METAB OLIC PANEL alkaline phosphatase 66 U/L 38-126 Not Available [facility] (Lab) [address] [place], [address], 01/27/2023 20:16:04 01/28/20 23 01/27/2023 COMPR EHENS ERIC METAB OLIC PANEL alanine aminotransfe rase 18 U/L 0-50 Not Available [facility] (Lab) [address] [place], [address], 01/27/2023 20:16:04 01/28/20 23 01/27/2023 COMPR EHENS ERIC METAB OLIC PANEL aspartate aminotransfe rase 25 U/L 15-46 Not Available [facility] (Lab) [address] [place], [address], 01/27/2023 20:16:04 01/28/20 23 01/27/2023 COMPR EHENS ERIC METAB OLIC PANEL bilirubin, total 0.50 mg/dL 0.20-1 .30 Not Available [facility] (Lab) [address] [place], [address], 01/27/2023 20:16:04 01/28/20 23 01/27/2023 COMPR EHENS ERIC METAB OLIC PANEL calcium 9.9 mg/dL 8.4-10 .2 Not Available [facility] (Lab) [address] [place], [address], 01/27/2023 20:16:04 01/28/20 23 01/27/2023 COMPR EHENS ERIC METAB OLIC PANEL total protein 6.3 g/dL 6.3-8. 2 Not Available [facility] (Lab) [address] [place], [address], 01/27/2023 20:16:04 01/28/20 23 01/27/2023 COMPR EHENS ERIC METAB OLIC PANEL albumin 3.4 g/dL 3.0-4. 4 Not Available [facility] (Lab) [address] [place], [address], 01/27/2023 20:16:04 01/28/20 23 01/27/2023 COMPR EHENS ERIC METAB OLIC PANEL globulin 2.9 g/dL 2.6-4. 2 Not Available [facility] (Lab) [address] [place], [address], 01/27/2023 20:16:04 01/28/20 23 01/27/2023 COMPR EHENS ERIC METAB OLIC PANEL A/G ratio 1.2 ratio 1.0-2. 0 Not Available [facility] (Lab) [address] [place], [address], 01/27/2023 20:16:04 01/28/20 23 01/27/2023 T4 FREE free T4 1.04 NG/dL 0.78-2 .19 Not Available [facility] (Lab) [address] [place], [address], 01/27/2023 20:38:46 01/28/20 23 01/27/2023 T3 FREE free T3 4.0 pg/mL 2.77-5 .27 Not Available [facility] (Lab) [address] [place], [address], 01/27/2023 20:38:52 01/28/20 23 01/27/2023 TEST NOT PERFO RMED test not performed SEE COMMEN T CBC TEST NOT PERFO RMED DUE TO EDTA SPECI MEN CLOTT ED. Not Available [facility] (Lab) [address] [place], [address], 01/27/2023 20:40:33 01/28/20 23 01/27/2023 TSH thyroid-stim ulating hormone 1.350 uIU/m L 0.465- 4.680 Not Available [facility] (Lab) [address] [place], [address], 01/27/2023 20:47:22 01/28/20 23 01/27/2023 VITAM IN B12 (JAKUB RITU ) vb12 >1000 pg/mL 239-93 1 high Not Available [facility] (Lab) [address] [place], [address], 01/27/2023 22:24:05 01/28/20 23 01/27/2023 FOLAT E, SERUM /PLAS MA folate 8.47 NG/mL 2.76-2 0.0 Not Available [facility] (Lab) [address] [place], [address], 01/27/2023 22:24:23 10/20/19 23 10/19/2022 US, doppl er, venou s No observ ation record ed. [email or web address] [facility] [address], [place], [address], 11/04/2022 17:12:48 10/20/19 23 10/19/2022 US, echoc ardio gram No observ ation record ed. [email or web address] [facility] [address], [place], [address], 11/04/2022 17:14:30 11/05/19 23 XR, chest , 2 view [facility] [address] [place] [address] Patien t Name: RAHAT ASHLEY ion #: [id number] Sex: M : 1935 9 Dictat ed By: Carter perez Attend ing Physic arminda: CARTER ARGUETA Orderi ng Physic arminda: CARTER ARGUETA Exam Date: 2022 14:45 PM Exam Name: XR CHEST 2V Admitt ing Diagno sis(es ): CLINIC AL INFORM ATION: Cough. TECHNI QUE: Fronta l and latera l chest radiog raphs were obtain ed. COMPAR MAMIE: None. FINDIN GS: Lungs: Mild atelec tasis in the left lung base. No focal consol idatio n. Small calcif ied granul omas are seen. Cardia c: Heart size is at the upper limits of normal . Pulmon velasquez vascul ature: Unrema rkable Medias tinum/ joy: Within normal limits . 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 Other: No other signif icant findin g. IMPRES MELVI: No eviden ce of acute diseas e in the chest. Nonacu te findin gs as descri bed above. HS:Y Electr onical ly Signed by: Carter perez at 2022 19:34: 49 PM Page 1 [email or web address] [facility] (Imaging) [address] [place], [address], 11/09/2022 14:29:49 03/14/19 24 03/14/2023 XR, chest , 2 view No observ ation record ed. [address], [address], 03/15/2023 19:10:45 03/14/19 24 03/14/2023 CT, brain , w/o contr ast No observ ation record ed. [address], [address], 03/15/2023 19:10:54 03/14/19 24 03/14/2023 CT, abdom en + pelvi s, w/o contr ast No observ ation record ed. [address], [place], [address], 03/21/2023 16:14:10 03/15/19 24 03/15/2023 josh cardenas ow study No observ ation record ed. [address], [place], [address], 03/21/2023 16:14:20 03/15/19 24 03/15/2023 MRI, brain , w/o contr ast No observ ation record ed. [address], [place], [address], 03/21/2023 16:14:54 04/05/19 24 04/05/2023 XR, chest No observ ation record ed. [address], [place], [address], 04/12/2023 13:14:07 04/05/19 24 04/05/2023 CT, abdom en + pelvi s, w/ contr ast No observ ation record ed. [address], [place], [address], 04/12/2023 13:14:21 04/05/19 24 04/05/2023 XR, chest No observ ation record ed. [address], [place], [address], 04/12/2023 13:14:34 04/07/19 24 04/07/2023 XR, chest No observ ation record ed. [address], [place], [address], 04/12/2023 14:15:23 04/08/19 24 04/08/2023 XR, chest No observ ation record ed. [address], [place], [address], 04/12/2023 14:31:54 04/08/19 24 04/08/2023 XR, chest No observ ation record ed. [address], [place], [address], 04/12/2023 14:32:11 04/08/19 24 04/08/2023 , [facility] ardio gram No observ ation record ed. [address], [place], [address], 04/12/2023 14:33:17 04/09/19 24 04/09/2023 XR, chest No observ ation record ed. [address] [facility], [place], [address], 04/12/2023 14:35:58 04/10/19 24 04/10/2023 XR, chest No observ ation record ed. [address] [facility], [place], [address], 04/13/2023 11:21:04 04/11/19 24 04/11/2023 XR, chest No observ ation record ed. [address] [facility], [place], [address], 04/13/2023 11:22:03 04/13/19 24 04/13/2023 XR, chest No observ ation record ed. [address] [facility], [place], [address], 04/20/2023 15:53:19 04/14/19 24 04/14/2023 XR, chest No observ ation record ed. [address], [place], [address], 04/20/2023 15:53:20 04/14/19 24 04/14/2023 US, retro perit oneum No observ ation record ed. [email or web address] [address], [place], [address], 04/20/2023 15:53:20 05/23/19 24 05/23/2023 josh cardenas ow study No observ ation record ed. [address], [place], [address], 05/28/2023 16:28:16 05/27/19 24 05/23/2023 josh cardenas ow study No observ ation record ed. [address], [place], [address], 05/28/2023 14:48:02 02/09/20 24 XR, hand No observ ation record ed. [email or web address] [facility] [place] [address] [facility] [address], [place], [address], 02/09/2024 14:10:17 Result Notes None recorded. Problems Name Problem SNOMED Code Status Onset Date Resolution Date Notes Provider Name and Address Organization Details Recorded Time Edema of lower extremity 849203220 Active 2019 Not Available [facility] 3 07:25:54 Trigger finger of left hand 4889726348258 9107 Active 2021 Not Available [facility] 3 07:25:54 Trigger finger of right hand 2392694467862 9101 Active 2021 Not Available [facility] 3 07:25:54 Plantar fasciitis of right foot 7498632223924 9101 Active 2019 Not Available [facility] 3 07:25:54 Hyperchole sterolemia 86334929 Active 2016 Not Available [facility] 3 07:25:54 Ingrowing nail of toe of left foot 3492205417577 9107 Active 2022 Not Available [facility] 3 07:25:54 Dry skin 68093193 Active 2021 Not Available [facility] 3 07:25:54 Insomnia 163771535 Active 2017 Not Available [facility] 3 07:25:54 Anxiety disorder 085151846 Active Not Available [facility] 3 07:25:54 Abdominal pain 53224694 Active Not Available [facility] 3 07:25:54 Gastroesop hageal reflux disease 044401386 Active Not Available [facility] 3 07:25:54 Sodium deficiency 501067432 Active Not Available [facility] 3 07:25:54 Edema 314958477 Active Not Available [facility] 3 07:25:54 Pure hyperchole sterolemia 153889831 Active Not Available [facility] 3 07:25:54 Pain in toe 659493455 Active Not Available [facility] 3 07:25:54 Pain of toe of left foot 2921163442166 08 Active 2020 Not Available [facility] 3 07:25:54 Acquired trigger finger of right middle finger 8825799939377 05 Active 2021 Not Available [facility] 3 07:25:54 Arthritis 8177023 Active 2016 Not Available [facility] 3 07:25:54 Hypertensi ve disorder 22435744 Active 2016 Not Available [facility] 3 07:25:54 Ingrowing toenail 009039823 Active 2021 Not Available [facility] 3 07:25:54 Onychomyco sis 576921834 Active 2018 Not Available [facility] 3 07:25:54 Chronic peripheral venous hypertensi on 181110006 Active 2021 Not Available [facility] 3 07:25:54 Hypokalemi a 39944224 Active 2021 Not Available [facility] 3 07:25:54 Hand pain 88049853 Active 2021 Not Available [facility] 3 07:25:54 Contusion of toe 85042792 Active 2020 Not Available [facility] 3 07:25:54 Essential hypertensi on 13277241 Active Not Available [facility] 3 07:25:54 COVID-19 627953805 Active 2021 Not Available [facility] 3 07:25:54 Dystrophia unguium 11841492 Active 2022 Not Available [facility] 3 07:25:54 Hyponatrem ia 97216807 Active 2016 Not Available [facility] 3 07:25:54 Bilateral hearing loss 91905415 Active 2021 Not Available [facility] 3 07:25:54 Peripheral venous insufficie ncy 13447055 Active 2022 Not Available [facility] 3 07:25:54 Lymphedema of lower extremity 406259129 Active 2022 Not Available [facility] 3 07:25:54 Ulcer of lower extremity 95288300 Active 2022 Not Available [facility] 3 07:25:54 Persistent cough 592669254 Active 2022 Not Available [facility] 3 07:25:54 Cough 71147726 Active 2022 Not Available [facility] 3 07:25:54 Fatigue 43423279 Active 2022 Not Available [facility] 3 07:25:54 Memory impairment 487874787 Active 2022 Not Available [facility] 3 07:25:54 Muscle weakness 78888187 Active 2023 RAYMOND Montesinos null, [place] - [employer] 4 12:11:53 Impacted cerumen of bilateral ears 9398332743463 108 Active 2023 Debbie Bliss, ENGAGEMENT DIRECTOR [address] [facility], [facility] [address], [place], [address] , [facility] [employer] [place] 4 10:25:49 Hand pain 89753235 Active 2023 Nury OteroAVI null, [facility] [employer] [facility] 13:34:32 Notes:Some problems listed i n Document: #[id number] could not be added to this patient's chart. Please review this document and add these problems to the patient's chart manually as needed. Problem Notes None recorded. Procedures Surgical History Date Name Laterality Status Provider Name and Address Organization Details Recorded Time 11/18/19 Wound Care-Podiatry completed Gary Lee RN [facility] [employer] [facility] 11/17/2022 15:45:29 10/21/19 Wound Care-Podiatry completed Sally Kilgore RN [facility] [employer] [facility] 10/20/2022 15:12:18 10/14/19 Wound Care-Podiatry completed Gary Lee RN [facility] [employer] [facility] 10/13/2022 16:43:47 07/30/19 Nail Debridement completed Alexei Mendez DPM [address] [facility], [address], [address], [facility] [employer] [facility] 08/05/2022 13:06:25 06/04/19 17 Cataract Surgery completed Not Available [facility] 02/2022 00:54:26 03/20/19 14 Colonoscopy completed Not Available [facility] 04/22/19 00:54:26 Tonsillectomy and/or Adenoidectomy completed Not Available [facility] 04/21/2022 00:54:26 Imaging Results Imaging Date Name Status LastModified by Organization Details LastModified Time 10/19/2022 US, doppler, venous completed [email or web address] [facility] [address], [place], [address], 11/04/2022 17:12:48 10/19/2022 US, echocardiogram completed [email or web address] [facility] [address], [place], [address], 11/04/2022 17:14:30 11/04/2022 XR, chest, 2 view completed [email or web address] [facility] (Imaging) [address], [place], [address], 11/09/2022 14:29:49 03/14/2023 XR, chest, 2 view completed [address] [facility], [place], [address], 03/15/2023 19:10:45 03/14/2023 CT, brain, w/o contrast completed [address] [address], [place], [address], 03/15/2023 19:10:54 03/14/2023 CT, abdomen + pelvis, w/o contrast completed [address], [address], 03/21/2023 16:14:10 03/15/2023 barium swallow study completed [address] [address], [place], [address], 03/21/2023 16:14:20 03/15/2023 MRI, brain, w/o contrast completed [address] [address], [place], [address], 03/21/2023 16:14:54 04/05/2023 XR, chest completed [address] [address], [place], [address], 04/12/2023 13:14:07 04/05/2023 CT, abdomen + pelvis, w/ contrast completed [address], [address], 04/12/2023 13:14:21 04/05/2023 XR, chest completed [address], [address], 04/12/2023 13:14:34 04/07/2023 XR, chest completed [address], [address], 04/12/2023 14:15:23 04/08/2023 XR, chest completed [address] [address], [place], [address], 04/12/2023 14:31:54 04/08/2023 XR, chest completed [address] [address], [place], [address], 04/12/2023 14:32:11 04/08/2023 US, echocardiogram completed [address] [address], [place], [address], 04/12/2023 14:33:17 04/09/2023 XR, chest completed [address] [address], [place], [address], 04/12/2023 14:35:58 04/10/2023 XR, chest completed [address] [address], [place], [address], 04/13/2023 11:21:04 04/11/2023 XR, chest completed [address] [address], [place], [address], 04/13/2023 11:22:03 04/13/2023 XR, chest completed [address] [address], [place], [address], 04/20/2023 15:53:19 04/14/2023 XR, chest completed [address] [address], [place], [address], 04/20/2023 15:53:20 04/14/2023 US, retroperitoneum completed [address] [address], [place], [address], 04/20/2023 15:53:20 05/23/2023 barium swallow study completed [address] [address], [place], [address], 05/28/2023 16:28:16 05/23/2023 barium swallow study completed [email or web address] [place], [place] [address] [facility] [address], [place], [address], 05/28/2023 14:48:02 02/09/2024 XR, hand completed [email or web address] [facility] [address] [facility] [address], [place], [address], 02/09/2024 14:10:17 Procedure Notes None recorded. Medical [...] Take 20 mg by injectio n route. 2023 active Not Available Not Available Not [...] Available terbinafi ne HCl 250 mg tablet 05/20 completed Not Available Not [...] mg by injectio n route. 2023 active [facility]: [id number] 4-20 Not Available Not Available Not [...] ne propionat e 50 mcg/actua tion nasal spray,valery pension 04/08 completed Not Available Not Available Not Available sertralin e 50 mg tablet active Not Available Not Available Not Available divalproe x 125 mg capsule,d elayed release sprinkle active Not Available Not Available Not Available tobramyci n 0.3 %-dexamet hasone 0.1 % eye drops,valery pension 04/08 completed Not Available Not Available Not [...] %) injection solution in office 11/04 completed [facility] [address] 05-22 Not Available Not Available Not Available [...] height Body mass index (BMI) Body weight Body temperature Heart rate Systolic blood pressure Diastolic blood pressure Provider Name and Address Organization Details Last Updated DateTime 3 167.64 cm 31.3 kg/m2 38605.9 2 g 97.9 [degF] 59 /min 118 mm[Hg] 74 mm[Hg] RAYMOND Dickey [facility] [employer] [facility] 3 14:45:34 Date Recorded Body height Heart rate Oxygen saturation Oxygen saturation in Arterial blood by Pulse oximetry Body temperature Systolic blood pressure Diastolic blood pressure Provider Name and Address Organization Details Last Updated DateTime 3 167.64 cm 58 /min 96 % 96 % 97.8 [degF] 129 mm[Hg] 66 mm[Hg] Gary Lee RN [facility] [employer] [facility] 3 15:37:13 Date Recorded Body height Body mass index (BMI) Body weight Body temperature Heart rate Systolic blood pressure Diastolic blood pressure Provider Name and Address Organization Details Last Updated DateTime 3 167.64 cm 31.5 kg/m2 44788.5 1 g 97.7 [degF] 60 /min 124 mm[Hg] 70 mm[Hg] RAYMOND Dickey [facility] 3 15:04:39 Date Recorded Body height Body mass index (BMI) Body weight Body temperature Provider Name and Address Organization Details Last Updated DateTime 11/02/2023 167.64 cm 29.1 kg/m2 35531.63 g 98.3 [degF] Mana LopezJENNIFER cortes [place] [facility] [employer] 11/02/2023 10:06:54 Date Recorded Body height Body mass index (BMI) Body weight Provider Name and Address Organization Details Last Updated DateTime 02/09/2024 167.64 cm 29.1 kg/m2 59921.63 g Mag Renae [place] [facility] [employer] 02/09/2024 13:41:48 Social History Question Answer Notes LastModified by Organization Details LastModified Time Tobacco Smoking Status Former Smoker Not Available [employer] 04/21/2022 00:52:21 Do You Have An Advance Directive? No MIGRATION.0301 888242 Information not available 04/21/2022 What Is Your Level Of Alcohol Consumption? Moderate Patient Reported One Mixed Drink A Night. MIGRATION.0301 704102 Information not available 04/21/2022 Are You Blind Or Do You Have Difficulty Seeing? No MIGRATION.0301 213097 Information not available 04/21/2022 What Is Your Level Of Caffeine Consumption? Moderate MIGRATION.0301 694044 Information not available 04/21/2022 How Much Tobacco Do You Chew? None MIGRATION.0301 131198 Information not available 04/21/2022 In The 14 Days Before Symptom Onset, Have You Had Close Contact With A Laboratory-conf irmed COVID-19 While That Case Was Ill? No MIGRATION.0301 966994 Information not available 04/21/2022 In The 14 Days Before Symptom Onset, Have You Had Close Contact With A Person Who Is Under Investigation For COVID-19 While That Person Was Ill? No MIGRATION.0301 043452 Information not available 04/21/2022 Are You Currently Employed? No Information not available 06/01/2022 Are You Deaf Or Do You Have Serious Difficulty Hearing? Yes Patient Wears Bilateral Hearing Aids; Still Having A Hard Time Hearing Information not available 06/01/2022 What Type Of Diet Are You Following? REGULAR MIGRATION.0301 671322 Information not available 04/21/2022 Which Illicit Or Recreational Drugs Have You Used? None MIGRATION.0301 911074 Information not available 04/21/2022 Do You Or Have You Ever Used E-cigarettes Or Vape? Never Used Electronic Cigarettes MIGRATION.0301 957390 Information not available 04/21/2022 What Is The Highest Grade Or Level Of School You Have Completed Or The Highest Degree You Have Received? [id number] MIGRATION.030 285286 Information not available 04/21/2022 What Is Your Occupation? RETIRED MIGRATION.030 931173 Information not available 04/21/2022 How Many Days Of Moderate To Strenuous Exercise, Like A Brisk Walk, Did You Do In The Last 7 Days? 0 MIGRATION.030 876583 Information not available 04/21/2022 Have There Been Any Changes To Your Family Or Social Situation? No MIGRATION.0301 579700 Information not available 04/21/2022 What Is The Fluoride Status Of Your Home? Unknown MIGRATION.0301 018404 Information not available 04/21/2022 When Did You Quit Smoking? 17+yearssincelastc igarette MIGRATION.030 626535 Information not available 04/21/2022 Are There Any Guns Present In Your Home? No MIGRATION.0301 624252 Information not available 04/21/2022 Do You Use Insect Repellent Routinely? No MIGRATION.0301 617946 Information not available 04/21/2022 Where Do You Live? SingleLevelHouse MIGRATION.030 904078 Information not available 04/21/2022 Do You Have A Medical Power Of Clinical Researcher? No MIGRATION.0301 795825 Information not available 04/21/2022 What Was The Date Of Your Most Recent Tobacco Screening? 01/27/2023 [email or web address] Information not available 01/27/2023 Have You Ever Been Counseled For Unhealthy Alcohol Use? No MIGRATION.0301 054788 Information not available 04/21/2022 Do You Have Any Pets? No MIGRATION.0301 137084 Information not available 04/21/2022 What Is Your Relationship Status? MIGRATION.0301 610682 Information not available 04/21/2022 Do You Use Your Seat Belt Or Car Seat Routinely? Yes MIGRATION.0301 406183 Information not available 04/21/2022 Do You Have Smoke And Carbon Monoxide Detectors In Your Home? Yes MIGRATION.0301 800360 Information not available 04/21/2022 Are You Passively Exposed To Smoke? Yes MIGRATION.0301 157439 Information not available 04/21/2022 Do You Or Have You Ever Used Smokeless Tobacco? Never Used Smokeless Tobacco MIGRATION.0301 759407 Information not available 04/21/2022 Are There Any Smokers In Your House? No MIGRATION.0301 075029 Information not available 04/21/2022 How Much Tobacco Do You Smoke? No MIGRATION.0301 641322 Information not available 04/21/2022 What Types Of Sporting Activities Do You Participate In? None MIGRATION.0301 926504 Information not available 04/21/2022 Do You Feel Stressed (tense, Restless, Nervous, Or Anxious, Or Unable To Sleep At Night)? [id number] MIGRATION.0301 831505 Information not available 04/21/2022 Do You Use Any Illicit Or Recreational Drugs? No MIGRATION.0301 312890 Information not available 04/21/2022 Do You Use Sunscreen Routinely? No MIGRATION.0301 328450 Information not available 04/21/2022 Has Tobacco Cessation Counseling Been Provided? No MIGRATION.0301 802434 Information not available 04/21/2022 Have You Recently Traveled Abroad? No MIGRATION.0301 074915 Information not available 04/21/2022 Do You Have Any Dietary Restrictions? No MIGRATION.0301 466812 Information not available 04/21/2022 Do You Or Have You Ever Used Any Other Forms Of Tobacco Or Nicotine? No MIGRATION.0301 721393 Information not available 04/21/2022 Sex: Male Functional Status Question Answer Note LastModified by Organizat ion Details LastModified Time Do you have difficulty walking or climbing stairs? Yes MIGRATION.8835254 026 Information not available 04/21/2022 Do you have transportation difficulties? No MIGRATION.9460778 026 Information not available 04/21/2022 Are you able to walk? YESWOREST MIGRATION.2421433 026 Information not available 04/21/2022 Do you have difficulty doing errands alone? Yes MIGRATION.2897076 026 Information not available 04/21/2022 Are you able to care for yourself? Yes MIGRATION.6806800 026 Information not available 04/21/2022 Do you have difficulty dressing or bathing? No MIGRATION.6371984 026 Information not available 04/21/2022 What is your exercise level? None MIGRATION.6030189 026 Information not available 04/21/2022 Mental Status Question Answer Note LastModified by Organizat ion Details LastModified Time Do you have difficulty concentrating, remembering or making decisions? Yes MIGRATION.061823001 6 Information not available 04/21/2022 Family History Relationship Description Onset Age of this Age Resolved Age Notes LastModified by Organization Details LastModified Time Mother Myocardial infarction 69 MIGRATION.838 [id number] Not available 04/21/2022 00:54:34 Father Alzheimer's disease 75 MIGRATION.099 3173452 Not available 04/21/2022 00:54:34 Brother Cerebrovascu lar accident 78 MIGRATION.177 0809796 Not available 04/21/2022 00:54:34 Brother Alzheimer's disease deceas ed MIGRATION.719 8838969 Not available 04/21/2022 00:54:34 Brother Myocardial infarction MIGRATION.216 7769243 Not available 04/21/2022 00:54:34 Unspecified Relation Family history of Hypertension MIGRATION.935 8626137 Not available 04/21/2022 00:54:34 Son Atrial fibrillation [email or web address] Not available 0 11/04/2022 14:44:06 Notes:NO ENT [...] GLAUCOMA N FOOT PROBLEM N DIVERTICULITIS N SLEEP APNEA N CHICKENPOX N INFECTIOUS DISEASE N PROSTATE Y HEART ARRHYTHMIA N INSOMNIA Y HIGH CHOLESTEROL / HYPERLIPIDEMIA Y EYE PROBLEMS Y HYPERTHYROIDISM N NEUROLOGICAL PROBLEMS N EDEMA N CHRONIC PAIN SYNDROME N HYPOTHYROIDISM N CAROTID BLOCKAGE N CONSTIPATION N BACK / NECK PROBLEMS N HAVE YOU BEEN HOSPITALIZED OR SEEN IN [facility] ER IN THE PAST YEAR ? Y ATHEROSCLEROSIS N BREAST PROBLEMS N DIALYSIS N ECZEMA N OSTEOPOROSIS N ARTHRITIS N APPENDICITIS N DIABETES, TYPE N BAD TEETH N ENT Y HEARTBURN / REFLUX N AUTISM SPECTRUM DISORDER (ASD) N HEPATITIS / LIVER DISEASE N GOUT N SLEEP DISORDER N ALZHEIMER'S DISEASE N Brain Problems N DEMENTIA N HERPES N SEIZURES/EPILEPSY N HEADACHES/MIGRAINES N VASCULAR DISEASE Y PACEMAKER N Blood Disorder N DIZZINESS N HEART DISEASE/HEART PROBLEMS N KIDNEY DISEASE N MULTIPLE SCLEROSIS N CANCER: SPECIFY N CARDIAC ARRHYTHMIA N ATRIAL FIBRILLATION N Gall Stones N PULMONARY EMBOLISM N AUTOIMMUNE DISEASE N Immunizations Vaccine Type Date Status Note Provider Nam e and Address Organization Details Recorded Time Influenza, high-dose, trivalent, PF 7 completed Not Available [facility] 03/30/2023 07:12:14 Influenza, split virus, trivalent, preservative 6 completed Not Available [facility] 03/30/2023 07:12:14 COVID-19, mRNA, LNP-S, PF, 30 mcg/0.3 mL dose 1 completed Not Available [facility] 03/30/2023 07:12:14 COVID-19, mRNA, LNP-S, PF, 30 mcg/0.3 mL dose 1 completed Not Available [facility] 03/30/2023 07:12:14 influenza, unspecified formulation 5 completed Not Available [facility] 03/30/2023 07:12:14 Influenza, high-dose, quadrivalent, PF 2 completed Not Available [facility] 03/30/2023 07:12:14 Influenza, high-dose, quadrivalent, PF 0 completed Not Available [facility] 03/30/2023 07:12:14 Influenza, high-dose, trivalent, PF 8 completed Not Available [facility] 03/30/2023 07:12:14 Past Encounters Encounter ID Performer Location Encounter Start Date Encounter Closed Date Diagnosis/Indication Diagnosis SNOMED-CT Code Diagnosis ICD10 Code [id number] [facility] [place] [address] [place] [address] 05/05/2020 00:00:00 05/06/2020 13:22:32 [id number] [facility] [place] [address] [place] [address] 05/20/2020 00:00:00 05/20/2020 22:01:12 [id number] [facility] [place] [address] [place] [address] 06/19/2020 00:00:00 06/20/2020 11:09:14 [id number] [facility] [place] [address] [facility] , [place] [address] 09/18/2020 00:00:00 09/18/2020 21:47:59 [id number] [facility] [place] [address] [place] [address] 09/29/2020 00:00:00 09/30/2020 16:57:27 [id number] [facility] [place] [address] [place] [address] 12/01/2020 00:00:00 12/02/2020 13:10:32 [id number] [facility] [place] [address] [place] [address] 02/02/2021 00:00:00 02/08/2021 20:10:35 [id number] [facility] [place] [address] [facility] , [place] [address] 04/02/2021 00:00:00 04/26/2021 10:03:37 [id number] [facility] [place] [address] [place] [address] 05/11/2021 00:00:00 05/12/2021 10:26:43 [id number] [facility] [place] [address] [place] [address] 07/02/2021 00:00:00 07/05/2021 15:53:49 [id number] [facility] [place] [address] [facility] , [place] [address] 07/23/2021 00:00:00 08/24/2021 22:02:14 [id number] [facility] [place] [address] [place] [address] 10/01/2021 00:00:00 10/01/2021 14:43:32 [id number] [facility] [place] [address] [place] [address] 10/20/2021 00:00:00 10/20/2021 17:22:01 [id number] [facility] [place] [address] [place] [address] 11/24/2021 00:00:00 11/24/2021 17:27:23 [id number] [facility] [place] [address] [facility] [address] , [place] [address] 12/01/2021 00:00:00 12/01/2021 18:04:03 [id number] [facility] [place] [address] [place] [address] 01/04/2022 00:00:00 01/04/2022 15:12:23 [id number] [facility] [place] [address] [place] [address] 03/08/2022 00:00:00 03/21/2022 17:27:24 [id number] Chadwick Argueta MD [facility] [place] [address] [facility] , [place] [address] 06/01/2022 15:23:51 06/01/2022 16:45:45 Diabetes mellitus 46694078 E11.9 Essential hypertension 14688232 I10 Edema 332692613 R60.9 Hyponatremia 23143077 E8 7.1 Insomnia 569569240 G47.0 0 [id number] Alexei Mendez DPM [facility] [place] [address] [place] [address] 07/29/2022 15:30:12 08/05/2022 15:15:30 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 [place] [address] 08/31/2022 14:13:53 08/31/2022 14:52:18 Acquired trigger finger of right middle finger 9214648924 41249 M65.331 Hand pain 40442460 M79.6 43 Trigger fi nger of right hand 5873440205 4933488 M65.30 [id number] [facility] [address] [place] [address] 10/13/2022 16:00:47 10/13/2022 17:10:02 Peripheral venous insufficiency 83757676 I87.2 Lymphedema of lower extremity 541774956 I89.0 Ulcer of l ower extremity 80314577 L97.950 [id number] [facility] [address] [place] [address] 10/20/2022 14:53:33 10/20/2022 15:23:58 Ulcer of lower extremity 24311125 L97.909 Peripheral venous insufficiency 31194976 I87.2 Lymphedema of lower extremity 285914215 I89.0 [id number] Chadwick Argueta MD [facility] [address] [place] [address] , [facility] [place] [address] 11/04/2022 14:25:33 11/04/2022 15:36:25 Cough 02637645 R05.9 Insomnia 877727148 G47.0 0 Anxiety disorder 0435565 06 F41.9 Essential hypertension 19550410 I10 [id number] [facility] [address] [place] [address] 11/17/2022 15:36:09 11/17/2022 16:20:59 Ulcer of lower extremity 40968722 L97.909 Peripheral venous insufficiency 87398660 I87.2 Lymphedema of lower extremity 716489944 I89.0 [id number] Chadwick Argueta MD [facility] [address] [facility] [place] [address] 01/27/2023 14:55:29 01/27/2023 16:17:33 Cough 15806267 R05.9 Fatigue 78238487 R53.83 Essential hypertension 00793366 I10 Insomnia 476373555 G47.0 0 Hyponatremia 45832728 E8 7.1 [id number] DEEPIKA Houser [facility] [place] [address] [place] [address] 11/02/2023 09:58:15 11/02/2023 14:27:16 Impacted cerumen of bilateral ears 2722353135 962158 H61.23 [id number] EUGENIA Wooten [facility] [place] [address] [place] [address] 02/09/2024 13:24:06 02/09/2024 14:02:05 Acquired trigger finger of right middle finger 1907396905 26939 M65.331 Hand pain 40013073 M79.6 43 Health Concerns Section Related Observation LastModified by Organization Detai ls LastModified Time None Recorded Concern Status LastModified by Organization Details LastModified Time None Recorded Advance Directives Directive N: Payers Encounter Date Sequence Insurance Name Policy Number Policy Thomas Covered Member ID Thomas Member ID Guarantor Name 11/04/2022 1 [facility]IC[facility] B[facility] Rahat Angel Albert [id number] Rahat Angel Albert 11/04/2022 2 [place] [id number] Rahat Angel Albert [id number] Rahat Angel Albert 11/17/2022 1 [facility]IC[facility] B[facility] Rahat Stanley Albert [id number] Rahat Angel Albert 11/17/2022 2 [place] [id number] Rahat Angel Albert [id number] Rahat Angel Albert 01/27/2023 1 MEDICARE B: [employer] [place] MEDICARE Rahat Angel Albert [id number] Rahat Angel Albert 01/27/2023 2 [place] [id number] Rahat Angel Albert [id number] Rahat Angel Albert 11/02/2023 1 MEDICARE B: [employer] [employer] [place] MEDICARE Rahat Angel Albert [id number] Rahat Angel Albert 11/02/2023 2 [place] [id number] Rahat Angel Albert [id number] Rahat Angel Albert 02/09/2024 1 MEDICARE B: [employer] [employer] [place] MEDICARE Rahat Angel Albert [id number] Rahat Angel Albert 02/09/2024 2 [place] [id number] Rahat Angel Albert [id number] Rahat Angel Albert Notes Date Note Type Note Provider Name and Address Organization Details Recorded Time 3 text/html insomnia stableHypertension doing fine no headache no dizzinessHyperglycemia glucose intolerance needs [id number] needs blood workObesity realistically he has not lose weightCough for about a week Chadwick Argueta MD [address] [place] [address], [place], [address], [employer] 11/07/2022 15:21:44 3 text/html . Patient is an 87-year-old male who presents to the office with a healed wound to the posterior right lower leg. Patient denies any new wounds or signs of infection. Patient was encouraged to continue Compression to the lower leg secondary to swelling to prevent recurrence. Alexei Mendez DPM [address], [place], [address], [employer] 11/17/2022 16:13:09 3 text/html insomnia stableHypertension doing fine no headache no dizzinessHyperglycemia glucose intolerance needs [id number] needs blood workObesity realistically he has not lose weightCough for about a week got better it has recurred in the last couple weeks there has not been any problems with coughing with eating Chadwick Argueta MD [address], [address], [place], [address], [facility] [employer] [facility] 01/28/2023 10:40:58 4 text/html This patient has a past medical history significant for macular degeneration, dementia, hyperlipidemia, and hypertension. He presents to the office with his spouse for cerumen impaction. The spouse reports that his recent audiology appointment, cerumen was noted to the right ear. She states that an attempt was made to remove the cerumen without success. He resides in a long-term care facility and does have significant dementia. DEEPIKA Houser [address], [address], [place], [address], [facility] [employer] 11/02/2023 10:37:51 4 text/html The patient is an 88-year-old male who presents with a chronic [...] He also has dementia and is a custodial resident. He is not a great candidate [...] today with the patient. EUGENIA Wooten [address], [address], [place], [address], [facility] 02/09/2024 14:11:15
--- OUTSIDE RECORDS SUMMARY | 2024-02-23 06:45 | XMS_ITS | CONTINUITY OF CARE DOCUMENT ---
Author Name ciro tanner Address Unknown Organization [facility] Address [address] [place] [address] Phone [phone] Care Team Providers Care Bankman Name Role Phone Castro VALDIVIA, Tata Unavailable BANDAR BELL MD Unavailable [phone] BANDAR BELL MD Unavailable [phone] PROBLEMS Condition Status Date Provider Notes Venous insufficiency, GSV B/L active Tata Erazo MD PHYSICAL EXAMINATION completed - Tata Erazo MD Hypercholesterolemia completed - Tata Erazo MD SHORTNESS OF BREATH active Tata Erazo MD ANXIETY DISORDER active Tata Erazo MD Elevated PSA active Tata Erazo MD Exposure to COVID-19 coronavirus active Gurvinder Erazo MD Ulcer of ankle active Emir Ahmedzai Cough active Tata Erazo MD Dementia active Tata Erazo MD Hyperlipidemia active Tata Erazo MD possible CVA completed - Tata Erazo MD Lower extremity edema active Tata Rich Venous insufficiency, legs, b/l active Yamileth Fischer MD Family History of Sudden Car diac : completed - Tata Erazo MD Family History of Sudden Car diac : completed - Tata Erazo MD ANEMIA SMALL HEMORRHOIDS, 2 POLYPS, gastritis active Tata Erazo MD 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%, 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 Tata Erazo MD ENCOUNTERS Date Type Provider Location Encounter Diag nosis - In-person encounter Office Visit Tata Erazo MD [facility] Hypercholesterolemiapossible CVAHyperlipidemiaDementia - In-person encounter Office Visit Tata Erazo MD [facility] Lower extremity edemaCough - In-person encounter Office Visit Cristopher Fischer MD [facility] - In-person encounter Office Visit Cristopher Fischer MD [facility] Venous insufficiency, legs, b/l - In-person encounter Office Visit Cristopher Fischer MD [facility] - In-person encounter Office Visit Tata Erazo MD [facility] Ulcer of ankle - In-person encounter Office Visit Tata Erazo MD [facility] - In-person encounter Office Visit Tata Erazo MD [facility] Exposure to COVID-19 coronavirus - In-person encounter Office Visit Tata Erazo MD [facility] 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%, 12/2019 - In-person encounter Office Visit Tata Erazo MD [facility] - In-person encounter Office Visit Tata Erazo MD [facility] - In-person encounter Office Visit Tata Erazo MD [facility] - In-person encounter Office Visit Tata Erazo MD [facility] Elevated PSA - In-person encounter Office Visit Tata Erazo MD [facility] - In-person encounter Office Visit Tata Erazo MD [facility] - In-person encounter Office Visit Tata Erazo MD [facility] - In-person encounter Office Visit Tata Erazo MD [facility] - In-person encounter Office Visit Tata Erazo MD [facility] - In-person encounter Office Visit Tata Erazo MD [facility] Elevated PSA - In-person encounter Office Visit Tata Erazo MD [facility] - In-person encounter Office Visit Tata Erazo MD [facility] - In-person encounter Office Visit Tata Erazo MD [facility] Family History of Sudden Cardiac :Family History of Sudden Cardiac : - In-person encounter Office Visit Tata Erazo MD [facility] - In-person encounter Office Visit Tata Erazo MD [facility] ANEMIA SMALL HEMORRHOIDS, 2 POLYPS, gastritis - In-person encounter Office Visit Tata Erazo MD [facility] PHYSICAL EXAMINATION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%, 12/2019HypercholesterolemiaSHORTN ESS OF BREATHANXIETY DISORDER VITAL SIGNS Date Observation Value Provider Body Mass Index (Ratio) 29.05 kg/m2 Matt Erazo MD blood pressure, cuff size regular Donte Rizzo blood pressure, diastolic 78 mm[Hg] Donte bevluis carlos Rizzo blood pressure, systolic 122 mm[Hg] Norberto caseyteddy Rizzo oxygen saturation, oximetry 100 % Brittanyteddy Rizzo respiratory rate E&M 12 /min Brittany Rizzo pulse rate 65 /min Brittany Rizzo weight E&M 180 [lb_av] Brittany Matthias height E&M 66 [in_i] Brittany Rizzo blood pressure, cuff size regular Ja rret blood pressure, diastolic 65 mm[Hg] Ja rret blood pressure, systolic 114 mm[Hg] Mike martinez pulse rate 69 /min Gabe respiratory rate E&M 16 /min Gabe oxygen saturation, oximetry 97 % Gabe height E&M 66 [in_i] Gabe Body Mass Index (Ratio) 30.34 kg/m2 Yamileth Fischer MD blood pressure, cuff size regular sholaet blood pressure, diastolic 79 mm[Hg] Pee rr blood pressure, systolic 142 mm[Hg] Mike martinez pulse rate 68 /min Gabe respiratory rate E&M 12 /min Gabe oxygen saturation, oximetry 96 % Gabe weight E&M 188 [lb_av] Gabe y height E&M 66 [in_i] Gabe blood pressure, cuff size regular jesus manuel Banuelos blood pressure, diastolic 75 mm[Hg] jesus manuel Banuelos blood pressure, systolic 127 mm[Hg] [facility] elsa Banuelos oxygen saturation, oximetry 98 % Maraijose Banuelos respiratory rate E&M 20 /min Mariajose Banuelos pulse rate 63 /min Mariajose Banuelos height E&M 66 [in_i] Mariajose Lakisha Body Mass Index (Ratio) 30.50 kg/m2 Yamileth Fischer MD blood pressure, cuff size regular rrramona blood pressure, diastolic 69 mm[Hg] rret blood pressure, systolic 127 mm[Hg] Mike pulse rate 65 /min Gabe respiratory rate E&M 12 /min Gabe oxygen saturation, oximetry 96 % Gabe weight E&M 189 [lb_av] Gabe height E&M 66 [in_i] Gabe Body Mass Index (Ratio) 30.99 kg/m2 Matt Erazo MD blood pressure, diastolic 76 mm[Hg] Tammy nkLog blood pressure, systolic 144 mm[Hg] Paulina [facility] blood pressure, cuff size regular [facility] blood pressure, diastolic 76 mm[Hg] [facility] blood pressure, systolic 144 mm[Hg] [facility] oxygen saturation, oximetry 96 % Gabe respiratory rate E&M 12 /min Gabe pulse rate 68 /min Gabe weight E&M 192 [lb_av] Gabe height E&M 66 [in_i] [facility] Body Mass Index (Ratio) 29.86 kg/m2 Matt Erazo MD blood pressure, diastolic 78 mm[Hg] Lala quiroz Garcias blood pressure, systolic 130 mm[Hg] [facility] Garcias oxygen saturation, oximetry 97 % Hailey Garcias pulse rate 86 /min Hailey rich weight E&M 185 [lb_av] Hailey rich blood pressure, cuff size large Lala quiroz Garcias respiratory rate E&M 16 /min Eliana Garcias height E&M 66 [in_i] Hailey rich Body Mass Index (Ratio) 29.86 kg/m2 Matt Erazo MD blood pressure, diastolic 71 mm[Hg] Sa ra Mcgrath blood pressure, systolic 130 mm[Hg] Dominique a Mcgrath oxygen saturation, oximetry 95 % Tabitha Mcgrath respiratory rate E&M 16 /min Tabitha Si ms pulse rate 68 /min Tabitha Mcgrath blood pressure, cuff size regular Sa ra Mcgrath weight E&M 185 [lb_av] Tabitha Mcgrath height E&M 66 [in_i] Tabitha Mcgrath Body Mass Index (Ratio) 31.63 kg/m2 Matt Erazo MD blood pressure, diastolic 78 mm[Hg] Li nkLogic blood pressure, systolic 151 mm[Hg] Paulina kLogic blood pressure, cuff size regular Sa ra Mcgrath blood pressure, diastolic 78 mm[Hg] Sa ra Mcgrath blood pressure, systolic 151 mm[Hg] Dominique a Mcgrath oxygen saturation, oximetry 96 % Tabitha Mcgrath respiratory rate E&M 16 /min Tabitha Si ms pulse rate 64 /min Tabitha Mcgrath weight E&M 196 [lb_av] Tabitha Mcgrath height E&M 66 [in_i] Tabitha Mcgrath Body Mass Index (Ratio) 31.47 kg/m2 Matt Erazo MD blood pressure, resting Yes [place] aldridge O'Andrea blood pressure, diastolic 70 mm[Hg] Ma rsha O'Andrea blood pressure, systolic 120 mm[Hg] Mar sha O'Andrea oxygen saturation, oximetry 98 % Kika O'Andrea respiratory rate E&M 16 /min Kika O'Andrea pulse rate 64 /min Kika Bell weight E&M 195 [lb_av] Kika SharifAndrea height E&M 66 [in_i] Kika WeaverAndrea Body Mass Index (Ratio) 31.47 kg/m2 Matt Erazo MD blood pressure, cuff size large Ke rri Gruenenfelder blood pressure, diastolic 70 mm[Hg] Ke rri Gruenenfelder blood pressure, systolic 120 mm[Hg] Ker ri Sennenfelder oxygen saturation, oximetry 97 % Marissa Nuno respiratory rate E&M 18 /min Marissa Citlali diaznfelder pulse rate 62 /min Marissa Grping lder weight E&M 195 [lb_av] Marissa Amelie lder height E&M 66 [in_i] Marissa Maribele lder pulse rate 63 /min Tata Erazo MD blood pressure, diastolic 71 mm[Hg] To carmela Erazo MD blood pressure, systolic 129 mm[Hg] Ton malachi Erazo MD Body Mass Index (Ratio) 32.44 kg/m2 Matt Erazo MD blood pressure, resting Yes Matt Erazo MD blood pressure, cuff size regular Cy anya Sanderson blood pressure, diastolic 80 mm[Hg] Cy anya Sanderson blood pressure, systolic 120 mm[Hg] Kelsea Sanderson oxygen saturation, oximetry 97 % Tamar Sanderson respiratory rate E&M 16 /min Tamar Sanderson pulse rate 64 /min Tamar Eldridge l weight E&M 201 [lb_av] Tamar Maldonadobel l height E&M 66 [in_i] Tamar Campbel l Body Mass Index (Ratio) 31.31 kg/m2 Matt Erazo MD blood pressure, diastolic 80 mm[Hg] Da paul Oliverio blood pressure, systolic 128 mm[Hg] Dac ia Oliverio oxygen saturation, oximetry 94 % Jeane Oliverio respiratory rate E&M 18 /min Jeane V oss pulse rate 66 /min Jeane Oliverio weight E&M 194 [lb_av] Jeane Oliverio height E&M 66 [in_i] Jeane Oliverio Body Mass Index (Ratio) 32.28 kg/m2 Matt Erazo MD blood pressure, diastolic 76 mm[Hg] To carmela Erazo MD blood pressure, systolic 130 mm[Hg] Gurvinder Erazo MD pulse rate 64 /min Tata Erazo MD oxygen saturation, oximetry 97 % Tata Erazo MD weight E&M 200 [lb_av] Tata Erazo MD height E&M 66 [in_i] Jeane Oliverio Body Mass Index (Ratio) 33.02 kg/m2 Matt Erazo MD blood pressure, diastolic 93 mm[Hg] Irving Freeman blood pressure, systolic 179 mm[Hg] Darlene Freeman oxygen saturation, oximetry 97 % Roberto Freeman respiratory rate E&M 18 /min Stephanie Freeman pulse rate 74 /min Roberto riojas weight E&M 204.6 [lb_av] Roberto Juan on height E&M 66 [in_i] Roberto Gil nson Body Mass Index (Ratio) 33.25 kg/m2 Matt Erazo MD blood pressure, cuff size regular Ke rri Nuno blood pressure, diastolic 90 mm[Hg] Ke rri Jimmieuedevora blood pressure, systolic 142 mm[Hg] Ker ri Fionaer oxygen saturation, oximetry 95 % Marissa Senniapatrickmartínez respiratory rate E&M 18 /min Marissa G kishaenenfelder pulse rate 72 /min Marissa Maribele lder weight E&M 206 [lb_av] Marissa Maribele lder height E&M 66 [in_i] Marissa Maribele lder Body Mass Index (Ratio) 32.76 kg/m2 Matt Erazo MD blood pressure, cuff size regular Ke rri Nuno blood pressure, diastolic 71 mm[Hg] Ke rri Jimmiekatipatrickmartínez blood pressure, systolic 132 mm[Hg] Olga lewis Nuno oxygen saturation, oximetry 96 % Marissa Nuno respiratory rate E&M 16 /min Marissa Citlali joepatrickmartínez pulse rate 70 /min Marissa Lópeze lder weight E&M 203 [lb_av] Marissa Kinsey lder height E&M 66 [in_i] Marissa Kinsey er blood pressure, diastolic 76 mm[Hg] To carmela Erazo MD blood pressure, systolic 140 mm[Hg] Ton malachi Erazo MD pulse rate 65 /min Marissa Senyfnthais lder oxygen saturation, oximetry 96 % Marissa Nuno respiratory rate E&M 16 /min Marissa Citlali argentina Body Mass Index (Ratio) 32.76 kg/m2 Simms verónica Nuno weight E&M 203 [lb_av] Marissa Ginpatricke lder blood pressure, diastolic 80 mm[Hg] Irving Freeman blood pressure, systolic 150 mm[Hg] Darlene Freeman pulse rate 68 /min Roberto riojas oxygen saturation, oximetry 96 % Roberto Freeman respiratory rate E&M 18 /min Stephanie Freeman Body Mass Index (Ratio) 32.83 kg/m2 Anny Freeman weight E&M 203.4 [lb_av] Roberto solitario blood pressure, diastolic 89 mm[Hg] Me yumi Saucedo blood pressure, systolic 162 mm[Hg] Glenda trice Lewis pulse rate 72 /min Vidya Lewis oxygen saturation, oximetry 97 % Vidya Lewis respiratory rate E&M 18 /min Vidya Lewis Body Mass Index (Ratio) 32.96 kg/m2 [facility] weight E&M 204.2 [lb_av] Vidya Saucedo blood pressure, diastolic 89 mm[Hg] Irving Freeman blood pressure, systolic 186 mm[Hg] Darlene Freeman Body Mass Index (Ratio) 33.34 kg/m2 Anny Freeman pulse rate 65 /min Roberto riojas oxygen saturation, oximetry 92 % Roberto Freeman respiratory rate E&M 18 /min Stephanie Freeman weight E&M 206.6 [lb_av] Roberto solitario Body Mass Index (Ratio) 32.60 kg/m2 [facility] blood pressure, khalil tolic, second observation 62 mm[Hg] Vidya Fernandez blood pressure, syst olic, second observation 124 mm[Hg] Vidya Fernandez blood pressure, diastolic 62 mm[Hg] Me yumi Fernandez blood pressure, systolic 124 mm[Hg] Glenda trice Fernandez pulse rate 70 /min Vidya Fernandez oxygen saturation, oximetry 95 % Vidya Fernandez respiratory rate E&M 18 /min Vidya Fernandez weight E&M 202 [lb_av] Vidya Fernandez Body Mass Index (Ratio) 31.91 kg/m2 Mae Matthews blood pressure, diastolic 72 mm[Hg] Scarlett Matthews blood pressure, systolic 149 mm[Hg] Zoe Matthews pulse rate 62 /min Mala Matthews oxygen saturation, oximetry 94 % Mala Matthews respiratory rate E&M 16 /min Mala Matthews weight E&M 197 [lb_av] Mala Matthews Body Mass Index (Ratio) 32.56 kg/m2 Anea leslie [facility] blood pressure, diastolic 64 mm[Hg] An eatcarmelita Crook blood pressure, systolic 118 mm[Hg] Ane atris [facility] pulse rate 70 /min Aneatrernesto [facility] oxygen saturation, oximetry 95 % Kirstieatrernesto [facility] respiratory rate E&M 18 /min Aneatri s [facility] weight E&M 201 [lb_av] Kirstieatrernesto [facility] height E&M 66 [in_i] [facility]ennie [facility] ALLERGIES No Known Drug Allergies RESULTS Date Observation Value Provider Reference Range Interpretation Location LDL cholesterol, serum 104 mg/dL Tata Erazo MD folate, serum 10.0 NG/MLM [facility] 5.6 - 45.8 vitamin b12, serum 437.3 pg/mL [facility] 211.0 - 946.0 free thyroxine index 6.6 ??g/dL [facility] 4.4 - 11.4 triiodothyronine uptake 1.0 TBI [facility] 0.8 - 1.3 thyroxine, serum, total 6.6 ??G/DL [facility] 4.5 - 11.7 thyroid stimulating hormone, serum 1.050 ??IU/ML [facility] 0.270 - 4.200 prostate specific antigen 26.3 ng/mL [facility] 0.0 - 4.0 High very low density lipoproteins 22.0 mg/dL [facility] 5.0 - 40.0 LDL/HDL (low-density lipoprotein/high-den sity lipoprotein) ratio 1.5 RATIO [facility] - lipoprotein, beta, serum, point, quantitative, calculated 104.0 (?) [facility] 0.0 - 100.0 High HDL cholesterol, serum 70.0 mg/dL [facility] 35.0 - 55.0 High cholesterol, serum 196.0 mg/dL [facility] 0.0 - 200.0 triglyceride, serum, fasting 110.0 mg/dL [facility] 0.0 - 150.0 ferritin, serum 97.3 ng/mL [facility] 30.0 - 400.0 anion gap, serum 13.9 [facility] - albumin/globulin ratio, serum 2.3 g/dL [facility] 1.1 - 2.5 globulin, serum 1.9 [facility] 2.3 - 3.8 Low urea nitrogen/creatinine ratio, serum 18.0 [facility] - Estimated Glomerular Filtration Rate (calc) 76.4 (?) [facility] 59.0 - chloride, serum 95.1 mmol/L [facility] 98.0 - 107.0 Low potassium, serum 3.4 mmol/L [facility] 3.5 - 5.1 Low sodium, serum 137.0 mmol/L [facility] 136.0 - 145.0 creatinine, serum 1.0 mg/dL [facility] 0.7 - 1.2 carbon dioxide, venous blood 28.0 mmol/L [facility] 23.0 - 31.0 albumin, serum 4.3 g/dL [facility] 3.5 - 5.2 calcium, serum 9.9 mg/dL [facility] 8.6 - 10.2 aspartate aminotransferase (SGOT), serum 30.0 1/L [facility] 0.0 - 40.0 alkaline phosphatase, serum 70.0 1/L [facility] 40.0 - 130.0 alanine aminotransferase (SGPT), serum 37.0 1/L [facility] 0.0 - 41.0 protein, total, serum 6.2 g/dL [facility] 6.6 - 8.7 Low bilirubin, serum, total 0.4 mg/dL [facility] 0.0 - 1.2 urea nitrogen, blood 18.0 mg/dL [facility] 8.0 - 23.0 blood glucose, random 106.0 mg/dL [facility] 74.0 - 99.0 High red blood cell distribution width, size density 44.0 fL [facility] - immature granulocytes, percentage of total cells, blood 0.2 % [facility] - nucleated red blood cells as percent of blood leukocytes 0.0 % [facility] - red blood cell (erythrocyte) count, per high power field 0.0 10*3/UL [facility] - eosinophils as percent of blood leukocytes 2.8 % [facility] - neutrophils as percent of blood leukocytes 59.9 % [facility] - Absolute Neutrophils 3.9 CELLS/UL [facility] 1.5 - 7.8 basophils as percent of blood leukocytes 0.3 % [facility] - Absolute Basophils 0.0 CELLS/UL [facility] - 0.2 monocytes as percent of blood leukocytes 9.9 % [facility] - Absolute Monocytes 0.7 CELLS/UL [facility] 0.2 - 1.0 lymphocytes as percent of blood leukocytes 26.9 % [facility] - Absolute Lymphocytes 1.8 CELLS/UL [facility] 0.9 - 3.9 mean platelet volume 10.5 (?) [facility] - platelet count 229.0 THOUSAND/ UL [facility] 100.0 - 400.0 mean corpuscular hemoglobin concentration, RBC 34.3 G/DL [facility] 31.0 - 38.0 mean corpuscular hemoglobin, RBC 33.3 pg [facility] 25.0 - 35.0 mean corpuscular volume, RBC 96.9 fL [facility] 75.0 - 100.0 hematocrit, blood 41.1 % [facility] 35.0 - 55.0 hemoglobin, blood 14.1 g/dL [facility] 11.5 - 16.5 erythrocyte count, whole blood 4.2 MILLION/U L [facility] 3.5 - 5.5 iron, serum 68.0 ug/dL [facility] 31.0 - 144.0 iron saturation percent, serum 20.5 % [facility] 20.0 - 50.0 iron binding capacity, total 331.8 ug/dL [facility] 250.0 - 450.0 hemoglobin A1C, blood, as % of total hemoglobin 5.5 % [facility] 4.0 - 5.6 reticulocyte count, absolute 0.084 10*6 CELLS/UL [facility] - reticulocyte count, blood, uncorrected 1.98 % [facility] 0.50 - 2.00 very low density lipoproteins 47.4 mg/dL [facility] 5.0 - 40.0 High LDL/HDL (low-density lipoprotein/high-den sity lipoprotein) ratio 2.0 RATIO [facility] - lipoprotein, beta, serum, point, quantitative, calculated 118.6 (?) [facility] HDL cholesterol, serum 58.0 mg/dL [facility] 35.0 - 55.0 High cholesterol, serum 224.0 mg/dL [facility] 0.0 - 200.0 High triglyceride, serum, fasting 237.0 mg/dL [facility] 0.0 - 150.0 High HISTORY OF MEDICATION USE Medication Status Instructions Dates Provider Indications Com ments divalproex 125 mg capsule, delayed rel sprinkle active Tata Erazo MD hydroxyzine pamoate 25 mg capsule completed - 07/26 Tata Erazo MD metoprolol tartrate 50 mg tablet active [facility] mg tablet [facility] chlorthalidone 25 mg tablet completed - 06/27 Emir ximena metoprolol succinate 50 mg tablet extended release 24 hr completed TAKE 1 TABLET BY MOUTH EVERY DAY 03/27 - 06/27 Emir Shirleyximena Farxiga 5 mg tablet completed - 06/27 [facility] furosemide 40 mg tablet active Take 1 tablet by mouth once a day 09/21 [facility] losartan 100 mg tablet completed Take 1 tablet by mouth once a day 08/19 - 06/[address] [facility] metoprolol succinate 50 mg tablet extended release 24 hr completed Take 1 tablet by mouth once a day TAKE 1 TABLET BY MOUTH EVERY DAY 04/27 - 03[facility] mg tablet completed TAKE 1 TABLET BY MOUTH EVERY DAY 04/19 - 08/[address] [facility] potassium chloride 20 mEq tablet extended release active Tabitha Mcgrath metoprolol succinate 50 mg tablet extended release 24 hr completed TAKE 1 TABLET BY MOUTH EVERY DAY 07/28 - 04/27 Lidia Cheema chlorthalidone 25 mg tablet completed TAKE 1 TABLET BY MOUTH EVERY DAY 04/12 - 09/[address] [facility] tamsulosin 0.4 mg capsule active TAKE 1 CAPSULE BY MOUTH EVERY DAY 03/15 [facility] Vitamin B-12 1,000 mcg tablet active 1 tablet once a day 06/30 Kika Saez [facility] MELATONIN 5 MG ORAL CAPSULE completed take one pill at bedtime as needed 03/01 - 06/30 Kika Saez EYLEA SOLUTION completed left eye 1 out of 5 weeks 03/01 - 06/30 Kika Saez Lipitor 10 mg tablet active 1 tablet on ce a day 03/01 Kika Sharif'Andrea famotidine 20 mg tablet active 1 tablet once a day 05/28 Tata Erazo MD LAMISIL 250 MG ORAL TABLET completed One tablet daily - 10/26 Marissa Reina [facility] [phone] [id number] capsule active 1 twice a day 09/21 Marissa Reina chlorthalidone 25 mg tablet completed TAKE ONE TABLET BY MOUTH ONCE DAILY 10/09 - 04/12 Emir Hill olmesartan 40 mg tablet completed Take 1 tablet by mouth once a day 10/25 - 04/09 Hedy Srivastava tamsulosin 0.4 mg capsule completed TAKE ONE CAPSULE BY MOUTH ONCE DAILY 11/15 - 03/15 Rose Aaron metoprolol succinate 50 mg tablet extended release 24 hr completed Take 1 tablet by mouth once a day 10/23 - 07/28 Jeannette Brush AMLODIPINE BESYLATE 10 MG ORAL TABLET completed po daily 04/15 - 10/13 Tata Erazo MD SIMVASTATIN 20 MG ORAL TABLET completed ONE TAB. DAILY 10/15 - 10/26 Marissa Reina EYLEA SOLUTION completed as directed - 10/26 Roberto Freeman Combigan 0.2-0.5% drops active as directed Roberto Freeman TYLENOL TABLET active 500 mg twice a day Roberto Freeman BENADRYL 25 MG ORAL CAPSULE completed as needed - 06/30 Kika Saez BENICAR HCT 40-25 MG ORAL TABLET completed ONE TAB. DAILY 04/13 - Ttaa Erazo MD BENICAMustapha HCT 20-12.5 MG ORAL TABLET completed ONE TAB. DAILY 03/30 - 04/13 Tata Erazo MD B COMPLETE ORAL TABLET completed take one pill a day 03/08 - 06/30 Kika O'Andrea VITAMIN D TABLET active Aneatris Brown GLUCOSAMINE CHONDR 1500 COMPLX ORAL CAPSULE completed one daily - 10/26 Marissa Reina GAVISCON TABLET CHEWABLE completed daily - 10/26 Marissa Reina UNISOM 25 MG ORAL TABLET completed one tab daily - 06/30 Kika Saez lycopene 10 mg capsule completed 1 once a day - 07/26 Tata Erazo MD ASPIRIN 81 MG ORAL TABLET active 1 tablet twice a day Tata Erazo MD ALEVE 220 MG ORAL CAPSULE completed one tab 2x daily - Tata Erazo MD ZANTAC 75 75 MG ORAL TABLET completed one tab 2x daily - 05/28 Tata Erazo MD buspirone 10 mg tablet active 1 tablet twice a day 09/21 Kika Saez Ambien 10 mg tablet completed 1 tablet every night 03/16 - 07/26 Tata Erazo MD LIPITOR 10 MG ORAL TABLET completed ONE TAB. DAILY - 10/26 Roberto Freeman BYSTOLIC 5 MG ORAL TABLET completed ONE TAB. DAILY - 04/15 Tata Erazo MD HYDROCHLOROTHIAZIDE 25 MG ORAL TABLET completed ONE TAB DAILY - 03/30 Tata Erazo MD FELODIPINE ER 10 MG ORAL TABLET EXTENDED RELEASE 24 HOUR completed one daily - 03/30 Tata Erazo MD SOCIAL HISTORY Date Observation Value Provider alcohol use no Emir Hill smoking, year quit 25 yrs Emir smith smoking history, tot al pack/year 8 Emir Hill cigarette use yes Emir Hill smoking status Former smoker Emir Shirleyjeff sanches social history reviewed E&M revi ewed - no changes required Cristopher Fischer MD social history E&M Marital Statu s: Smoking History: P atient is a former smoker. Cristopher Fischer MD smoking status Former smoker Cristopher Fischer MD social history E&M Marital Statu s: Smoking History: P atient is a former smoker. Cristopher Fischer MD social history reviewed E&M revi ewed - no changes required Cristopher Fischer MD smoking, year quit 25 yrs Mariajose crook cigarette use yes Mariajose Banuelos smoking status Former smoker Mariajose lew social history reviewed E&M revi ewed - no changes required Cristopher Fischer MD social history reviewed E&M revi ewed - no changes required Emir Watsonmedzai social history E&M Marital Statu s: Smoking History: P atient is a former smoker. Emir Ahmedzai smoking, year quit 1991 Hailey Garcias smoking history, tot al pack/year 8 Hailey Garcias cigarette use yes Hailey Catalan ling smoking status Former smoker Hailey florian social history reviewed E&M revi ewed - no changes required Emir Pritchettzai social history reviewed E&M revi ewed - no changes required Emir Ahmedzai social history reviewed E&M revi ewed - no changes required Tata Erazo MD social history E&M Marital Statu s: Smoking History: P atient is a former smoker. Alexei Fuentes social history reviewed E&M revi ewed - no changes required Alexei Fuentes smoking, year quit 1991 Kika O' Andrea smoking history, tot al pack/year 8 Kika O'Andrea cigarette use yes Kika O'Andrea smoking status Former smoker Kika O'Jossie l social history E&M Marital Statu s: Smoking History: P atient is a former smoker. Alexei Fuentes social history reviewed E&M revi ewed - no changes required Alexei Fuentes smoking, year quit 1991 Marissa valljeo smoking history, tot al pack/year 8 Marissa Reina cigarette use yes Marissa Greenfieldnf elder smoking status Former smoker Marissa Greenfield nfelder social history E&M Marital Statu s: Smoking History: P atkatlyn is a former smoker. Tata Erazo MD smoking, year quit 1991 Tata andrade MD smoking history, tot al pack/year 8 Tata Erazo MD cigarette use yes Tata Rich smoking status Former smoker Tata Erazo MD social history reviewed E&M revi ewed - no changes required Tata Erazo MD smoking, year quit 1991 Tata andrade MD cigarette use yes Tata Rich smoking status Former smoker Tata Erazo MD social history E&M Marital Statu s: Smoking History: P atkatlyn is a former smoker. Tata Erazo MD social history reviewed E&M revi ewed - no changes required Tata Erazo MD social history E&M Marital Statu s: Smoking History: P atkatlyn is a former smoker. Tata Erazo MD social history reviewed E&M revi ewed - no changes required Tata Erazo MD alcohol use no Jeane Oliverio smoking status Former smoker Jeane Oliverio social history reviewed E&M revi ewed - no changes required Tata Erazo MD social history E&M Marital Statu s: Smoking History: P atkatlyn is a former smoker. Tata Erazo MD alcohol use no Jeane Oliverio smoking status Former smoker Jeane Oliverio social history reviewed E&M revi ewed - no changes required Tata Erazo MD social history E&M Marital Statu s: Smoking History: P atkatlyn is a former smoker. Tata Erazo MD number of grandchildren Tata Erazo MD T lou Erazo MD alcohol use no Roberto buckneron smoking status Former smoker Roberto Cerrato social history reviewed E&M revi ewed - no changes required Tata Erazo MD alcohol use no Marissa Kinsey lder smoking status Former smoker Marissa Greenfield nfelder social history reviewed E&M revi ewed - no changes required Tata Erazo MD alcohol use no Marissa Kinsey lder smoking status Former smoker Marissa Greenfield nfelder social history reviewed E&M revi ewed - no changes required Tata Erazo MD alcohol use no Marissa Kinsey lder smoking status Former smoker Marissa Greenfield nfelder social history reviewed E&M revi ewed - no changes required Tata Erazo MD smoking status Former smoker Roberto Cerrato social history reviewed E&M revi ewed - no changes required Tata Erazo MD smoking status Former smoker Vidya Saucedo social history reviewed E&M revi ewed - no changes required Tata Erazo MD smoking status Former smoker Roberto Cerrato smoking status Former smoker Vidya Henry garcía social history reviewed E&M reviewed Tata Erazo MD social history E&M Marital Status: Marriurmila Erazo MD social history reviewed E&M reviewed Tata Erazo MD smoking history, tot al pack/year 8 Fredo Crook smoking, year quit 1992 Fredo Crook smoking status former smoker Fredo ash MENTAL STATUS Date Observation Value Provider assessment of judgme nt and insight E&M Alert and oriented to time, place and person. Mood and affect are normal. Tata Erazo MD assessment of judgme nt and insight E&M Alert and oriented to time, place and person. Mood and affect are normal. Tata Erazo MD FAMILY HISTORY Family Member Condition Mother Family History of Abrams dden Cardiac : Full Brother Family History of Abrams dden Cardiac : INSURANCE PROVIDERS Payer name Policy type / Coverage type Saud escalante ID [employer] Medicare [id number] [facility] [id number] ADVANCE DIRECTIVES Name Date DISCUSSED - NO DECISION MADE TREATMENT PLAN Date Name Performer [id number],C, B P today: 142/79 P rior BP: 127/75 (10/21/2022) Labs Reviewed: C reat: 1.0 (09/22/2016) C hol: 196.0 (09/22/2016) HDL: 70.0 (09/22/2016) T.0 (09/22/2016) His updated medication list for this problem includes: Furosemide 40 Mg Tablet (Furosemide) ..... Take 1 tablet by mouth once a day Losartan 100 Mg Tablet (Losartan) ..... Take 1 tablet by mouth once a day Metoprolol Succinate 50 Mg Tablet Extended Release 24 Hr (Metoprolol succinate) ..... Take 1 tablet by mouth once a day take 1 tablet by mouth every day Cristopher Fischer MD [id number],C,H is sores have healed and he is compliant with his compression stockings. I f his Sx worsen I recommend doing a venaseal procedure. Cristopher Fischer MD [id number],C,resolved Yamileth Fischer MD [id number],C,w ound care managing. H e will follow up in 1 month to evaluate Cristopher Fischer MD [id number],C,S ignificant bilaterally, will treat conservatively Cristopher Fischer MD [id number],C,Will recheck venous doppler Cristopher Fischer MD [id number],C,P t should consult wound care either at [facility] Cristopher Fischer MD [id number],S, Emir Ahmedza i [id number],S, Emir Ahmedza i [id number],S, Emir Ahmedza i [id number],S, Emir Ahmedza i [id number],S, Emir Ahmedza i [id number],S, Emir Ahmedza i [id number],S, Emir Ahmedza i [id number],S, Emir Ahmedza i [id number],S, Emir Ahmedza i [id number],S, Emir Ahmedza i [id number],S, Emir medza i [id number],S, Emir Ahmedza i [id number],B, Emir Ahmedza i [id number],B, Emir Ahmedza i [id number],S, Emir medza i [id number],S, Emir medza i [id number],S, Emir medza i [id number],S, Emir Ahmedza i [id number],B, Emir Ahmedza i [id number],S, Emir Ahmedza i Cardiology Tata Erazo MD Cardiology: H is updated medication list for this problem includes: Lipitor 10 Mg Tablet (Atorvastatin) ..... 1 tablet once a day Tata Erazo MD Cardiology: H is updated medication list for this problem includes: Furosemide 40 Mg Tablet (Furosemide) ..... Take 1 tablet by mouth once a day Metoprolol Tartrate 50 Mg Tablet (Metoprolol tartrate) Tata Erazo MD Cardiology Tata Erazo MD Cardiology: H is updated medication list for this problem includes: Furosemide 40 Mg Tablet (Furosemide) ..... Take 1 tablet by mouth once a day Metoprolol Tartrate 50 Mg Tablet (Metoprolol tartrate) Tata Erazo MD Cardiology [facility]: O rders: C XR- PA/Lat ([id number]) [facility] Cardiology: B P today: 114/65 P rior BP: 142/79 (11/29/2022) Labs Reviewed: C reat: 1.0 (09/22/2016) C hol: 196.0 (09/22/2016) HDL: 70.0 (09/22/2016) LDL: 104.0 (?) (09/22/2016) T.0 (09/22/2016) [facility] Cardiology: H is updated medication list for this problem includes: Furosemide 40 Mg Tablet (Furosemide) ..... Take 1 tablet by mouth once a day Metoprolol Tartrate 50 Mg Tablet (Metoprolol tartrate) Chlorthalidone 25 Mg Tablet (Chlorthalidone) [facility] Card[facility]: H is updated medication list for this problem includes: Lipitor 10 Mg Tablet (Atorvastatin) ..... 1 tablet once a day Emir ximena Cardiology: B P today: 142/79 P rior BP: 127/75 (10/21/2022) Labs Reviewed: C reat: 1.0 (09/22/2016) C hol: 196.0 (09/22/2016) HDL: 70.0 (09/22/2016) T.0 (09/22/2016) & #13;His updated medication list for this problem includes: Furosemide 40 Mg Tablet (Furosemide) ..... Take 1 tablet by mouth once a day Losartan 100 Mg Tablet (Losartan) ..... Take 1 tablet by mouth once a day Metoprolol Succinate 50 Mg Tablet Extended Release 24 Hr (Metoprolol succinate) ..... Take 1 tablet by mouth once a day take 1 tablet by mouth every day Cristopher Fischer MD Cardiology:His sores have healed and he is compliant with his compression stockings. I f his Sx worsen I recommend doing a venaseal procedure. Cristopher Fischer MD Cardiology:resolved Cristopher Fischer MD Cardiology:wound car e managing. H e will follow up in 1 month to evaluate Cristopher Fischer MD Cardiology:Significa nt bilaterally, will treat conservatively Cristopher Fischer MD Cardiology:Will recheck venous d oppler Cristopher Fischer MD Cardiology:Pt should consult wou nd care either at [facility] Cristopher Fischer MD Cardiology [facility] Cardiology [facility] Cardiology Alexei Nacht Cardiology Alexei Nacht Telehealth Tata Erazo MD Telehealth Tata Erazo MD Telehealth Tata Erazo MD Telehealth Tata Erazo MD Cardiology Follow up Alexei Nacht Cardiology Follow up Alexei Nacht Cardiology Follow up Alexei Nacht Cardiology Follow up Alexei Nacht Cardiology Follow up Alexei Nacht TeleHealth, 6 month f/u. Tata Erazo MD TeleHealth, 6 month f/u. Tata Erazo MD [facility], 6 month f/u. Tata Erazo MD [facility], 6 month f/u. Tata Erazo MD Cardiology follow up Tata rodriguez MD Cardiology follow up Tata rodriguez MD Cardiology follow up Tata rodriguez MD Cardiology follow up Tata rodriguez MD Cardiology follow up Tata rodriguez MD Cardiology follow up Tata rodriguez MD Cardiology follow up Tata rodriguez MD Cardiology follow up Tata rodriguez MD Cardiology follow up Tata rodriguez MD Cardiology follow up Tata rodriguez MD Cardiology follow up Tata rodriguez MD Cardiology follow up Tata rodriguez MD Cardiology follow up Tata rodriguez MD Cardiology Tata Erazo MD Cardiology Tata Erazo MD Cardiology:Followed by PCP. Matt Erazo MD Cardiology:Elevated today. P atient will keep a log of daily blood pressures and bring them to the office before I adjust his BP meds. 145/80 when rechecked. BP today: 179/93 P rior BP: 142/90 (09/21/2016) Labs Reviewed: C reat: 1.0 (09/22/2016) C hol: 196.0 (09/22/2016) HDL: 70.0 (09/22/2016) T.0 (09/22/2016) Tata Erazo MD Cardiology Follow up Gurvindericonor Sing michael [facility] Cardiology Follow up Toniya Sing h Cardiology Follow up Toniya Sing h Cardiology Follow up Toniya Sing h Cardiology Follow up Toniya Sing h Cardiology Follow up Toniya Sing h Cardiology Follow up Toniya Sing h Cardiology Follow up Toniya Sing h Cardiology Follow up Toniya Sing h Cardiology Follow up Toniya Sing michael [facility] Follow up Toniya Sing michael [facility] Follow up Toniya Sing michael [facility] Follow up Toniya Sing michael [facility] Follow up Toniya Sing h Cardiology Follow up Toniya Sing michael [facility] Cardiology Tata Erazo MD Cardiology Tata Erazo MD Cardiology Tata Erazo MD Cardiology Tata Erazo MD Cardiology Tata Erazo MD Cardiology Tata Erazo MD Cardiology Tata Erazo MD Cardiology Tata Erazo MD fu:off lipitor, will try zocor T lou Erazo MD fu Tata Erazo MD fu:please check your bp daily and turn it in in 2 weeks Goal BP is less than 140/90 Tata Erazo MD follow up : H is updated medication list for this problem includes: Aspirin 81 Mg Tabs (Aspirin) ..... One tab. twice daily Benicar Hct 40-25 Mg Tabs (Olmesartan medoxomil-hctz) ..... One tab. daily Bystolic 5 Mg Tabs (Nebivolol hcl) ..... One tab. daily Tata Erazo MD follow up : H is updated medication list for this problem includes: Aspirin 81 Mg Tabs (Aspirin) ..... One tab. twice daily Benicar Hct 40-25 Mg Tabs (Olmesartan medoxomil-hctz) ..... One tab. daily Bystolic 5 Mg Tabs (Nebivolol hcl) ..... One tab. daily BP today: 124/62 P rior BP: 149/72 (03/30/2013) Tata Erazo MD follow up: H is updated medication list for this problem includes: Lipitor 10 Mg Tabs (Atorvastatin calcium) ..... One tab. daily BP today: 149/72 Prior BP: 118/64 (03/16/2013) Tata Erazo MD follow up: H is updated medication list for this problem includes: Felodipine Er 10 Mg [id number] (Felodipine) ..... One daily Hydrochlorothiazide 25 Mg Tabs (Hydrochlorothiazide) ..... One tab daily Bystolic 5 Mg Tabs (Nebivolol hcl) ..... One tab. daily Aspirin 81 Mg Tabs (Aspirin) ..... One tab. twice daily BP today: 149/72 Prior BP: 118/64 (03/16/2013) Tata Erazo MD new patient visit: H is updated medication list for this problem includes: Felodipine Er 10 Mg [id number] (Felodipine) ..... One daily Hydrochlorothiazide 25 Mg Tabs (Hydrochlorothiazide) ..... One tab daily Bystolic 5 Mg Tabs (Nebivolol hcl) ..... One tab. daily Aspirin 81 Mg Tabs (Aspirin) ..... One tab. twice daily BP today: 118/64 Prior BP: / () Tata Erazo MD new patient visit: H is updated medication list for this problem includes: Lipitor 10 Mg Tabs (Atorvastatin calcium) ..... One tab. daily BP today: 118/64 Prior BP: / () Tata Erazo MD new patient visit: H is updated medication list for this problem includes: Felodipine Er 10 Mg [id number] (Felodipine) ..... One daily Hydrochlorothiazide 25 Mg Tabs (Hydrochlorothiazide) ..... One tab daily Bystolic 5 Mg Tabs (Nebivolol hcl) ..... One tab. daily Aspirin 81 Mg Tabs (Aspirin) ..... One tab. twice daily BP today: 118/64 Tata Erazo MD Date Name CXR- PA/Lat PROBNP, N TERMINAL BASIC METABOLIC PANE L W/EGFR Complete Echo Venous Doppler Bilat eral LE - Reflux Complete Echo Venous Doppler Bilat eral LE - Reflux Complete Echo HEMOGLOBIN A1c PSA, TOTAL VITAMIN B12 RETICULOCYTE COUNT IRON AND TOTAL IRON BINDING CAPACITY FOLATE, SERUM FERRITIN CBC (INCLUDES DIFF/P LT) THYROID PANEL WITH T SH, 3RD GENERATION COMPREHENSIVE METABO LIC PANEL, W/EGFR LIPID PANEL LIPID PANEL HISTORY OF PROCEDURES Procedure Date Procedure Name Provider Procedure Notes S tatus EKG Tata Erazo MD completed EKG Tata Erazo MD completed EKG Tata Erazo MD completed EKG Tata Erazo MD completed SNOMED-CT: 06228493 Physical Exam, Performed: Pulse Exam of Foot Tata Erazo MD completed EKG Tata Erazo MD completed SNOMED-CT: 025053305 857690 Current Medications Documented Tata Erazo MD completed SNOMED-CT: 10329633 Physical Exam, Performed: Pulse Exam of Foot Tata Erazo MD completed SNOMED-CT: 833966421 582224 Current Medications Documented Tata Erazo MD completed SNOMED-CT: 91115848 Physical Exam, Performed: Pulse Exam of Foot Tata Erazo MD completed SNOMED-CT: 832183411 604072 Current Medications Documented Tata Erazo MD completed SNOMED-CT: 37856475 Physical Exam, Performed: Pulse Exam of Foot Tata Erazo MD completed SNOMED-CT: 330797260 439417 Current Medications Documented Tata Erazo MD completed SNOMED-CT: 06640384 Physical Exam, Performed: Pulse Exam of Foot Tata Erazo MD completed EKG Tata Erazo MD completed SNOMED-CT: 344761103 192521 Current Medications Documented Tata Erazo MD completed SNOMED-CT: 56131999 Physical Exam, Performed: Pulse Exam of Foot Tata Erazo MD completed SNOMED-CT: 019708654 854822 Current Medications Documented Tata Erazo MD completed EKG Tata Erazo MD completed EKG Tata Erazo MD completed
== END 2024-02-16 11:48 ==
LOC: ANHED 06:23
PROVIDERS: Emergency Provider Emergency Medicine; PCP Internal Medicine
DX: S09.90XA Unspecified injury of head, initial encounter (principal); Z79.01 Long term (current) use of 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; W06.XXXA Fall from bed, initial encounter
CPT/HCPCS: 70450; 72125; 99284

== ENCOUNTER 2024-05-08 17:20 | Inpatient (IN) | payer MEDICARE, SELFPAY ==
--- NOTE | ~2024-05-08 | CT_ITS ---
History: Altered mental status, dementia PROCEDURE: CT head without contrast. COMPARISON: 02/16/2024 TECHNIQUE: Axial imaging of the head performed from the skull base to the vertex without IV contrast. Sagittal a nd coronal reformations obtained. DLP: 681 mGy-cm FINDINGS: The ventricles are enlarged. The dilatation of the ventricles is proportional to the degree of sulcal prominence, not uncommon in the senescent brain. Decreased attenuation is identified within the periventricular white matter, likely secondary to micr ovascular ischemic disease, in a patient of this age. There is no mass, mass effect or midline shift. There is no abnormal extra-axial fluid collection or intracranial hemorrhage. Redemonstration of opacification of the right maxillary and frontoethmoidal recess with near complete opacification of the right sphenoid sinus. Remaining paranasal sinuses are unremarkable. The mastoid air cells are well aerated. No acute displaced fractures within the overlying cranium. Impression: No acute intracranial hemorrhage or suspicious mass effect. Inflammatory sinus disease, demonstrating progression from prior. Reviewed, dictated and finalized at location A. Impression: No acute intracranial hemorrhage or suspicious mass effect. Inflammatory sinus disease, demonstrating progression from prior.
--- NOTE | ~2024-05-08 | XR_ITS ---
CHEST RADIOGRAPH CLINICAL HISTORY: SOB . COMPARISON: 01/28/2024 TECHNIQUE: Single portable view of the chest. FINDINGS The cardiomediastinal silhouette is enlarged, unchanged.. The lungs are clear. IMPRESSION: No focal infiltrate or effusion. Reviewed, dictated and finalized at location A.
[2024-05-08 17:17] VITALS: BP 137/79; PULSE 78; RESP 20; TEMP 37.3; O2SAT 96
--- NOTE | 2024-05-08 17:29 | ECG_ITS ---
Test Date: 2024-05-08 17:30:57 Measurements Intervals [place] Rate: 79 P: 62 CA: 150 QRS: -48 QRSD: 94 T: 10 QT: 387 QTc: 444 Interpretive Statements SINUS RHYTHM MARKED LEFT AXIS DEVIATION [QRS AXIS < -30] NONSPECIFIC T-WAVE ABNORMALITY ABNORMAL ECG Electronically Signed On 05-09-2024 12:15:17 CDT by Nelson Lundberg M.D.
[2024-05-08 17:55] VITALS: O2SAT 98
[2024-05-08 18:01] LABS: Basophils Percent Auto 0.3 % (0.2-1.2); Eosinophils Absolute Auto 0.1 K/mm3 (0-0.3); Eosinophils Percent Auto 1.5 % (0-4.4); Hematocrit 34.6 % (42.0-52.0); Hemoglobin 10.7 g/dL (14.0-18.0); Immature Granulocyte Absolute 0.05 K/mm3 (0.00-0.031); Immature Granulocyte Percent A 0.8 % (0-0.5); Lymphocytes Absolute Auto 1.82 K/mm3 (0.9-3.2); Lymphocytes Percent Auto 29.6 % (18.3-44.2); Mean Corpuscular HGB Conc 30.9 g/dl (32-36); Mean Corpuscular Hemoglobin 28.2 pg (26-34); Mean Corpuscular Volume 91.3 fl (80-100); Mean Platelet Volume 9.5 fl (7.4-10.4); Monocytes Absolute Auto 0.9 K/mm3 (0.1-0.6); Monocytes Percent Auto 14.3 % (2.6-8.5); Neutrophils Absolute Auto 3.3 K/mm3 (1.3-6.7); Neutrophils Percent Auto 53.5 % (45.5-73.1); Platelet Count Result 250 k/mm3 (150-375); Red Blood Count 3.79 M/mm3 (4.6-6.20); Red Cell Distribution Width 13.9 % (11.5-14.5); White Blood Count 6.2 K/mm3 (4.5-10.0)
[2024-05-08 18:13] LABS: Alanine Aminotransferase 24 U/L (6-50); Albumin Level 3.4 g/dL (3.5-5.1); Alkaline Phosphatase 54 U/L (38-126); Anion Gap 9 mmol/L (4-12); Aspartate Amino Transferase 30 U/L (17-59); Bilirubin,Total 0.4 mg/dL (0.2-1.3); Blood Urea Nitrogen 38 mg/dL (9-20); Calcium 9.8 mg/dL (8.4-10.2); Carbon Dioxide 25 mmol/L (22-30); Chloride 122 mmol/L (98-107); Estimated CRCL calculation 34 ml/min; Estimated Glomerular Filt Rate 47; Glucose 98 mg/dL (65-110); Potassium 3.7 mmol/L (3.4-5.0); Sodium 156 mmol/L (137-145)
[2024-05-08 18:40] LABS: Influenza A QL RT-PCR Negative (Negative); Influenza B QL RT-PCR Negative (Negative); RSV RNA, RT-PCR Negative (Negative); SARS-CoV-2 RNA PCR Positive (Negative)
--- NOTE | 2024-05-08 18:52 | PC.NURSE ---
Pt. arrived with a depend soaked with urine. Dirty depend removed. radha care performed with soap and water. Clean depend applied. Pt. given fresh linens. Pt. Anny Garcia at bedside. EUGENIA Chand at bedside as well. Straight cath performed with 0mL of output.
[2024-05-08 18:53] VITALS: BP 163/68; PULSE 77; RESP 18; O2SAT 96
--- NOTE | 2024-05-08 19:04 | ED_ITS ---
HPI - Weakness General Chief complaint: Shortness of Breath/Dyspnea Stated complaint: SOB, lethargic Time Seen by Provider: 05/08/24 18:31 Source: family Mode of arrival: EMS Limitations: clinical condition and dementia History of Present Illness HPI Narrative: This is a 89 year old male that presents to the ER for lethargy. Patient recently tested positive for COVID. Over the last 2 days he has become more lethargic, not wanting to eat or drink. Patient has history of fairly severe dementia. does report the nursing facility mentioned hospice care, but they have not pursued this yet. Related Data Allergies Allergy/AdvReac Type Severity Reaction Status Date / Time No Known Allergies Allergy Verified 05/08/24 18:27 Review of Systems 2 Review of Systems: ROS unobtainable: Yes unobtainable due to medical condition PMFSH Past Medical History Medical History (Updated 05/08/24 @ 23:25 by Martha Chand PA-C) History of hyperlipidemia History of hypertension History of dementia Exam 2 Narrative: GENERAL: Lethargic, well-nourished, and in no acute distress. HEAD: Normocephalic, atraumatic. EYES: PERRLA and EOMI. ENT: Nares clear, no rhinorrhea or epistaxis. Mucous membranes dry. Oropharynx without tonsillar hypertrophy exudate or other lesions. NECK: Supple. No adenopathy or masses. CHEST: Clear to auscultation. No respiratory distress. No wheezes rales or rhonchi HEART: Regular rate and rhythm. No murmur heard. Normal peripheral pulses. ABDOMEN: Soft, nontender, nondistended, normal active bowel sounds. EXTREMITIES: Normal range of motion. No edema. SKIN: Warm, dry, no rash. NEURO: Alert to voice, is not speaking or following commands Course Consultations Consultation #1: Spoke with hospitalist about patient and workup who accepts admission Date: 05/08/24 Consultation #2: RACQUEL did come out and speak with the patient's . She would like to see how he does over the next couple of days/if he turns around. They will check back in with the in a week Date: 05/08/24 Vital Signs Vital signs: Vital Signs Temperature 99.2 F 05/08/24 17:17 Pulse Rate 78 05/08/24 17:17 Respiratory Rate 20 05/08/24 17:17 Blood Pressure 137/79 05/08/24 17:17 Pulse Oximetry 96 05/08/24 17:17 Oxygen Delivery Room Air 05/08/24 17:17 Temperature 99.2 F 05/08/24 17:17 Pulse Rate 73 05/08/24 20:52 Respiratory Rate 16 05/08/24 20:52 Blood Pressure 158/62 H 05/08/24 20:52 Pulse Oximetry 97 05/08/24 20:52 Oxygen Delivery Room Air 05/08/24 17:55 MDM - Weakness MDM Narrative Medical decision making narrative: Patient presents the emergency department for lethargy, decreased p.o. intake. History of dementia. Currently positive for COVID-19. He is afebrile in the ER. He is quite lethargic, will open eyes to voice. Is not answering questions. Does not follow commands. Reportedly patient does not talk much at baseline. He only recognizes his . Cbc without leukocytosis. Shows normocytic anemia hemoglobin of 10.7. Patient appears severely dehydrated on exam. Creatinine is 1.41. Sodium is 156. Urine without evidence of infection. This was sent for culture. Blood cultures obtained patient started on IV antibiotics. Chest x-ray without acute cardiopulmonary abnormality. CT brain without acute findings. Family updated on his workup and recommendation for admission. Spoke with hospitalist about patient and workup who accepts admission Differential Diagnosis Differential diagnosis: Likely sepsis, dehydration and other (Electrolyte derangement, pneumonia, COVID, influenza) Lab Data Attestation: I reviewed the patient's lab results. 05/08/24 17:49 05/08/24 17:49 Labs: Lab Results 05/08/24 05/08/24 05/08/24 Range/Units 17:49 17:59 21:13 WBC 6.2 (4.5-10.0) K/mm3 RBC 3.79 L (4.6-6.20) M/mm3 Hgb 10.7 L (14.0-18.0) g/dL Hct 34.6 L (42.0-52.0) % MCV 91.3 (80-100) fl MCH 28.2 (26-34) pg MCHC 30.9 L (32-36) g/dl RDW 13.9 (11.5-14.5) % Plt Count 250 (150-375) k/mm3 MPV 9.5 (7.4-10.4) fl Immature Gran % (Auto) 0.8 H (0-0.5) % Neut % (Auto) 53.5 (45.5-73.1) % Lymph % (Auto) 29.6 (18.3-44.2) % Hart % (Auto) 14.3 H (2.6-8.5) % Eos % (Auto) 1.5 (0-4.4) % Baso % (Auto) 0.3 (0.2-1.2) % Lymph # (Auto) 1.82 (0.9-3.2) K/mm3 Hart # (Auto) 0.9 H (0.1-0.6) K/mm3 Eos # (Auto) 0.1 (0-0.3) K/mm3 Baso # (Auto) 0.0 (0.0-0.1) K/mm3 Abs Immat Gran (auto) 0.05 H (0.00-0.031) K/mm3 Absolute Neuts (auto) 3.3 (1.3-6.7) K/mm3 Absolute Nucleated RBC 0.000 (0.0-0.012) K/mm3 Nucleated RBC % 0.0 (0.0-0.2) % Sodium 156 H (137-145) mmol/L Potassium 3.7 (3.4-5.0) mmol/L Chloride 122 H (98-107) mmol/L Carbon Dioxide 25 (22-30) mmol/L Anion Gap 9 (4-12) mmol/L BUN 38 H (9-20) mg/dL Creatinine 1.41 H (0.7-1.3) mg/dL Estim Creat Clear Calc 34 ml/min Estimated GFR 47 L (59 - ) Glucose 98 (65-110) mg/dL Calcium 9.8 (8.4-10.2) mg/dL Total Bilirubin 0.4 (0.2-1.3) mg/dL AST 30 (17-59) U/L ALT 24 (6-50) U/L Alkaline Phosphatase 54 (38-126) U/L NT-Pro-B Natriuret Pep 1570 H (19.9-100) pg/mL Total Protein 7.0 (6.3-8.2) g/dL Albumin 3.4 L (3.5-5.1) g/dL Urine Color Yellow (Yellow) Urine Appearance Turbid H (Clear) Urine pH 6.0 (5.0-9.0) Ur Specific Spade 1.016 (1.001-1.035) Urine Protein 2+ H (Negative) mg/dL Urine Glucose (UA) Negative (Negative) mg/dL Urine Ketones Trace H (Negative) mg/dL Ur Blood (Man) 2+ H (Negative) Urine Nitrate Positive H (Negative) Urine Bilirubin Negative (Negative) Urine Urobilinogen 1.0 (<2.0) mg/dL Leukocyte Esterase Rfl 3+ H (Negative) GLORIA/UL Urine RBC 21-50 H (0-2) /hpf Urine WBC >100 H (0-3) /hpf Ur Squamous Epith Cells None seen (Few) /hpf Urine Bacteria 4+ H /hpf Urine Casts 0-2 Influenza A (RT-PCR) Negative (Negative) Influenza B (RT-PCR) Negative (Negative) RSV (RT-PCR) Negative (Negative) SARS-CoV-2 RNA (RT-PCR) Positive A (Negative) Imaging Data Radiologist's impression: ITS Impressions Chest X-Ray 05/08/24 18:15 IMPRESSION: No focal infiltrate or effusion. CT brain: No acute intracranial hemorrhage or suspicious mass effect. Inflammatory sinus disease Critical Care Time Critical Care Time Critical Care Time: No Discharge Plan Discharge Clinical Impression: Dehydration, Hypernatremia, COVID-19 Patient Disposition: Still a Patient Condition: Stable
--- OUTSIDE RECORDS SUMMARY | 2024-05-08 19:04 | XMS_ITS | Data Portability ---
Author Organization [place] [facility], Main Office Address [address] [place] [address] Care Team Providers Care Air Support Control Officer Name Role Phone DENNIS PAYAN Primary Care Provider DENNIS PAYAN Referring Provider [phone] Assessment Encounter Date Assessment Date Assessment LastModified by Organization Details LastModified Time 11/04/2022 11/04/2022 Chest x-ray continue current therapy follow-up in 4 months [email or web address] Not available 11/07/2022 15:19:41 01/27/2023 01/27/2023 Prednisone [...] sleeping aids can make memory loss worse [email or web address] Not available 01/28/2023 10:40:21 02/09/2024 02/09/2024 By [...] recorded. Lab lipid panel, serum 2022 023 PUSHPA Not available 3 20:15:49 CMP, serum or plasma 2022 023 PUSHPA Not available 3 20:16:04 vitamin B12 + folate, serum or blood 2022 023 cyahl Not available 3 09:59:36 TSH, serum or plasma 2022 023 PUSHPA Not available 3 20:47:22 CBC w/ auto diff 2022 023 PUSHPA Not available 4 23:57:23 T4, free, serum 2022 023 PUSHPA Not available 3 20:38:47 T3, free, serum or plasma 2022 023 PUSHPA Not available 3 20:38:52 Referral None recorded. Procedures injection/a spiration joint/bursa (PROC) 2023 024 [email or web address] In-Office Order, Internal Use Only DO Not Attach Compendium DO Not Attach Compendium, Do Not Delete/merge, [id number] 4 13:36:02 cerumen removal (PROC) 2023 024 [email or web address] In-Office Order, Internal Use Only DO Not Attach Compendium DO Not Attach Compendium, Do Not Delete/merge, [id number] 4 12:29:37 Surgeries None recorded. Imaging XR, hand 2023 024 [email or web address] [facility], [address], [place], [address], 4 14:10:19 XR, chest, 2 view 2022 023 [facility] ([facility]), [address] [place], [address], 3 20:36:02 Medication Orders bupivacaine HCl 0.5 % (5 mg/mL) injection solution 2023 024 [email or web address] [facility], [address] [facility] [place], [address], 4 14:03:50 Kenalog 10 mg/mL suspension for injection 2023 024 [email or web address] [facility], [address] [facility] [place], [address], 4 14:03:50 Debrox 6.5 % ear drops 2023 024 [facility] [employer], [address] [facility] [place], [address], 4 12:38:52 prednisone 20 mg tablet 2022 023 [email or web address] [facility] [address] [facility], [address] [place], [address], 3 16:33:19 Patient TargetsNo targets recorded. Patient Instructions Encounter Date Encounter Id Patient Instructions Last Modified By Organization Details Last Modified Time 11/02/2023 [id number] Discussed with patient's spouse inability to safely remove cerumen impaction given his advanced dementia and inability to cooperate during procedure. Advised use of Debrox drops for cerumen softening. Patient's spouse verbally understands care plan. [email or web address] Not available 11/02/2023 10:37:47 Reason for Referral None Reported. Results Created Date Observation Date Name Description Value Unit Range Abnormal Flag Note LastModifiedBy Organization Detail LastModifiedTime 01/28/2001/27/2023 LIPID PANEL cholesterol 165 mg/dL 140-19 9 NIH RASHMI NSUS RECOM MENDA TION FOR ELVIS STERO L: ADULT CHILD LOW RISK: <200 <170 BORDE RLINE : <200- 239 ----- HIGH RISK: >240 >200 Not Available [facility] (Lab) [address] [place], [address], 01/27/2023 20:15:49 01/28/20 23 01/27/2023 LIPID PANEL triglyceride s 162 mg/dL 0-150 high NIH RASHMI NSUS REPOR T RECOM MENDA TION FOR TRIGL YCERI JEROME: ADULT CHILD LOW RISK: <150 ----- BODER LINE: 150-1 99 ----- HIGH RISK: >200 ----- Not Available [facility] (Lab) [address] [place], [address], 01/27/2023 20:15:49 01/28/20 23 01/27/2023 LIPID PANEL HDL cholesterol 46 mg/dL 40- Not Available [facility] (Lab) [address] [place], [address], 01/27/2023 20:15:49 01/28/20 23 01/27/2023 LIPID PANEL [...] WILL NOT BE REPOR AURE. Not Available [facility] (Lab) [address] [place], [address], 01/27/2023 20:15:49 01/28/20 23 01/27/2023 COMPR EHENS ERIC METAB OLIC PANEL sodium 138 mmol/ L 137-14 5 Not Available [facility] (Lab) [address] [place], [address], 01/27/2023 20:16:04 01/28/20 23 01/27/2023 COMPR EHENS ERIC METAB OLIC PANEL potassium 4.2 mmol/ L 3.5-5. 1 Not Available [facility] (Lab) [address] [place], [address], 01/27/2023 20:16:04 01/28/20 23 01/27/2023 COMPR EHENS ERIC METAB OLIC PANEL chloride 104 mmol/ L 98-107 Not Available [facility] (Lab) [address] [place], [address], 01/27/2023 20:16:04 01/28/20 23 01/27/2023 COMPR EHENS ERIC METAB OLIC PANEL carbon dioxide 28 mmol/ L 22-30 Not Available [facility] (Lab) [address] [place], [address], 01/27/2023 20:16:04 01/28/20 23 01/27/2023 COMPR EHENS ERIC METAB OLIC PANEL anion gap 10.2 mmol/ L 14-22 low Not Available [facility] (Lab) [address] [place], [address], 01/27/2023 20:16:04 01/28/20 23 01/27/2023 COMPR EHENS ERIC METAB OLIC PANEL glucose 97 mg/dL 70-99 Not Available [facility] (Lab) [address] [place], [address], 01/27/2023 20:16:04 01/28/20 23 01/27/2023 COMPR EHENS ERIC METAB OLIC PANEL BUN 23 mg/dL 8-19 high Not Available [facility] (Lab) [address] [place], [address], 01/27/2023 20:16:04 01/28/20 23 01/27/2023 COMPR EHENS ERIC METAB OLIC PANEL creatinine 1.30 mg/dL 0.66-1 .25 high Not Available [facility] (Lab) [address] [place], [address], 01/27/2023 20:16:04 01/28/20 23 01/27/2023 COMPR EHENS ERIC METAB OLIC PANEL GFR 52 Refer ence Range : Filer ge GFR Healt hy Adult : >60 [...] or ethni c subgr oups, such as Hisri nics. Outsi de the valid ated yg [...] calcu lator is avail able on the F websi te: https ://ww w.kid naila.o rg/pr ofess ional s/kdo qi/gf r_cal culat or Not Available [facility] (Lab) [address] [place], [address], 01/27/2023 20:16:04 01/28/20 23 01/27/2023 COMPR EHENS ERIC METAB OLIC PANEL alkaline phosphatase 66 U/L 38-126 Not Available [facility] (Lab) [address] [place], [address], 01/27/2023 20:16:04 01/28/20 23 01/27/2023 COMPR EHENS ERIC METAB OLIC PANEL alanine aminotransfe rase 18 U/L 0-50 Not Available [facility] (Lab) [address] [place], [address], 01/27/2023 20:16:04 01/28/20 23 01/27/2023 COMPR EHENS ERIC METAB OLIC PANEL aspartate aminotransfe rase 25 U/L 15-46 Not Available [facility] (Lab) [address] [place], [address], 01/27/2023 20:16:04 01/28/20 23 01/27/2023 COMPR EHENS ERIC METAB OLIC PANEL bilirubin, total 0.50 mg/dL 0.20-1 .30 Not Available [facility] (Lab) [address] [place], [address], 01/27/2023 20:16:04 01/28/20 23 01/27/2023 COMPR EHENS ERIC METAB OLIC PANEL calcium 9.9 mg/dL 8.4-10 .2 Not Available [facility] (Lab) [address] [place], [address], 01/27/2023 20:16:04 01/28/20 23 01/27/2023 COMPR EHENS ERIC METAB OLIC PANEL total protein 6.3 g/dL 6.3-8. 2 Not Available [facility] (Lab) [address] [place], [address], 01/27/2023 20:16:04 01/28/20 23 01/27/2023 COMPR EHENS ERIC METAB OLIC PANEL albumin 3.4 g/dL 3.0-4. 4 Not Available [facility] (Lab) [address] [place], [address], 01/27/2023 20:16:04 01/28/20 23 01/27/2023 COMPR EHENS ERIC METAB OLIC PANEL globulin 2.9 g/dL 2.6-4. 2 Not Available [facility] (Lab) [address] [place], [address], 01/27/2023 20:16:04 01/28/20 23 01/27/2023 COMPR EHENS ERIC METAB OLIC PANEL A/G ratio 1.2 ratio 1.0-2. 0 Not Available [facility] (Lab) [address] [place], [address], 01/27/2023 20:16:04 01/28/20 23 01/27/2023 T4 FREE free T4 1.04 NG/dL 0.78-2 .19 Not Available [facility] (Lab) [address] [place], [address], 01/27/2023 20:38:46 01/28/20 23 01/27/2023 T3 FREE free T3 4.0 pg/mL 2.77-5 .27 Not Available [facility] (Lab) [address] [place], [address], 01/27/2023 20:38:52 01/28/20 23 01/27/2023 TEST NOT PERFO RMED test not performed SEE COMMEN T CBC TEST NOT PERFO RMED DUE TO EDTA SPECI MEN [facility]OTT ED. Not Available [facility] (Lab) [address] [place], [address], 01/27/2023 20:40:33 01/28/20 23 01/27/2023 TSH thyroid-stim ulating hormone 1.350 uIU/m L 0.465- 4.680 Not Available [facility] (Lab) [address] [place], [address], 01/27/2023 20:47:22 01/28/20 23 01/27/2023 VITAM IN B12 (JAKUB RITU ) vb12 >1000 pg/mL 239-93 1 high Not Available [facility] (Lab) [address] [place], [address], 01/27/2023 22:24:05 01/28/20 23 01/27/2023 FOLAT E, SERUM /PLAS MA folate 8.47 NG/mL 2.76-2 0.0 Not Available [facility] (Lab) [address] [place], [address], 01/27/2023 22:24:23 10/20/19 23 10/19/2022 US, doppl er, venou s No observ ation record ed. [email or web address] [facility] [address], [place], [address], 11/04/2022 17:12:48 10/20/19 23 10/19/2022 US, echoc ardio gram No observ ation record ed. [email or web address] [facility] [address], [place], [address], 11/04/2022 17:14:30 11/05/19 23 XR, chest , 2 view [facility] [address] [place] [address] Patien t Name: RAHAT ASHLEY ion #: [id number] Sex: M : 1935 9 Dictat ed By: Carter perez Attend ing Physic arminda: CARTER ARGUETA Orderi Physic arminda: CARTER ARGUETA Exam Date: 2022 [...] 2022 19:34: 49 PM Page 1 [email or web address] [facility] ([facility]) [address] [place], [address], 11/09/2022 14:29:49 03/14/19 24 03/14/2023 XR, chest , 2 view No observ ation record ed. [address] [facility], [place], [address], 03/15/2023 19:10:45 03/14/19 24 03/14/2023 CT, brain , w/o contr ast No observ ation record ed. [address] [facility], [place], [address], 03/15/2023 19:10:54 03/14/19 24 03/14/2023 CT, abdom en + pelvi s, w/o contr ast No observ ation record ed. [address], [place], [address], 03/21/2023 16:14:10 03/15/19 24 03/15/2023 josh cardenas ow study No observ ation record ed. [address], [place], [address], 03/21/2023 16:14:20 03/15/19 24 03/15/2023 MRI, brain , w/o contr ast No observ ation record ed. [address], [place], [address], 03/21/2023 16:14:54 04/05/19 24 04/05/2023 XR, chest No observ ation record ed. [address], [place], [address], 04/12/2023 13:14:07 04/05/19 24 04/05/2023 CT, abdom en + pelvi s, w/ contr ast No observ ation record ed. [address], [place], [address], 04/12/2023 13:14:21 04/05/19 24 04/05/2023 XR, chest No observ ation record ed. [address], [place], [address], 04/12/2023 13:14:34 04/07/19 24 04/07/2023 XR, chest No observ ation record ed. [address], [place], [address], 04/12/2023 14:15:23 04/08/19 24 04/08/2023 XR, chest No observ ation record ed. [address], [place], [address], 04/12/2023 14:31:54 04/08/19 24 04/08/2023 XR, chest No observ ation record ed. [address], [place], [address], 04/12/2023 14:32:11 04/08/19 24 04/08/2023 , [facility] ardio gram No observ ation record ed. [address], [place], [address], 04/12/2023 14:33:17 04/09/19 24 04/09/2023 XR, chest No observ ation record ed. [address], [place], [address], 04/12/2023 14:35:58 04/10/19 24 04/10/2023 XR, chest No observ ation record ed. [address], [place], [address], 04/13/2023 11:21:04 04/11/19 24 04/11/2023 XR, chest No observ ation record ed. [address] [facility], [place], [address], 04/13/2023 11:22:03 04/13/19 24 04/13/2023 XR, chest No observ ation record ed. [address] [facility], [place], [address], 04/20/2023 15:53:19 04/14/19 24 04/14/2023 XR, chest No observ ation record ed. [address] [facility], [place], [address], 04/20/2023 15:53:20 04/14/19 24 04/14/2023 US, retro perit oneum No observ ation record ed. [address] [facility], [place], [address], 04/20/2023 15:53:20 05/23/19 24 05/23/2023 josh theodore study No observ ation record ed. [address] [facility], [place], [address], 05/28/2023 16:28:16 05/27/19 24 05/23/2023 josh theodore study No observ ation record ed. [address] [facility], [place], [address], 05/28/2023 14:48:02 02/09/20 24 XR, hand No observ ation record ed. [email or web address] [facility] [address], [place], [address], 02/09/2024 14:10:17 Result Notes None recorded. Problems Name Problem SNOMED Code Status Onset Date Resolution Date Notes Provider Name and Address Organization Details Recorded Time Edema of lower extremity 599100170 Active 2019 [facility] Available [facility] 3 07:25:54 Trigger finger of left hand 0582611448458 9107 Active 2021 Not Available [facility] 3 07:25:54 Trigger finger of right hand 9937010162703 9101 Active 2021 Not Available [facility] 3 07:25:54 Plantar fasciitis of right foot 7576039715438 9101 Active 2019 Not Available [facility] 3 07:25:54 Hyperchole sterolemia 13640871 Active 2016 Not Available [facility] 3 07:25:54 Ingrowing nail of toe of left foot 1523946159083 9107 Active 2022 Not Available [facility] 3 07:25:54 Dry skin 83728663 Active 2021 Not Available [facility] 3 07:25:54 Insomnia 882857629 Active 2017 Not Available [facility] 3 07:25:54 Anxiety disorder 748598201 Active Not Available [facility] 3 07:25:54 Abdominal pain 60433092 Active Not Available [facility] 3 07:25:54 Gastroesop hageal reflux disease 412187113 Active Not Available [facility] 3 07:25:54 Sodium deficiency 317988044 Active Not Available [facility] 3 07:25:54 Edema 272665747 Active Not Available [facility] 3 07:25:54 Pure hyperchole sterolemia 671793360 Active Not Available [facility] 3 07:25:54 Pain in toe 835994825 Active Not Available [facility] 3 07:25:54 Pain of toe of left foot 5686381824293 08 Active 2020 Not Available [facility] 3 07:25:54 Acquired trigger finger of right middle finger 5567247275193 05 Active 2021 Not Available [facility] 3 07:25:54 Arthritis 3292801 Active 2016 Not Available [facility] 3 07:25:54 Hypertensi ve disorder 98143391 Active 2016 Not Available [facility] 3 07:25:54 Ingrowing toenail 409576137 Active 2021 Not Available [facility] 3 07:25:54 Onychomyco sis 882348567 Active 2018 Not Available [facility] 3 07:25:54 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 2021 Not Available [facility] 3 07:25:54 Hypokalemi a 36813731 Active 2021 Not Available [facility] 3 07:25:54 Hand pain 18925425 Active 2021 Not Available [facility] 3 07:25:54 Contusion of toe 51770803 Active 2020 Not Available [facility] 3 07:25:54 Essential hypertensi on 80650600 Active Not Available [facility] 3 07:25:54 COVID-19 896546995 Active 2021 Not Available [facility] 3 07:25:54 Dystrophia unguium 85719882 Active 2022 Not Available [facility] 3 07:25:54 Hyponatrem ia 15748430 Active 2016 Not Available [facility] 3 07:25:54 Bilateral hearing loss 93823045 Active 2021 Not Available [facility] 3 07:25:54 Peripheral venous insufficie ncy 71264095 Active 2022 Not Available [facility] 3 07:25:54 Lymphedema of lower extremity 657920207 Active 2022 Not Available [facility] 3 07:25:54 Ulcer of lower extremity 39202529 Active 2022 Not Available [facility] 3 07:25:54 Persistent cough 410078040 Active 2022 Not Available [facility] 3 07:25:54 Cough 74539229 Active 2022 Not Available [facility] 3 07:25:54 Fatigue 55337676 Active 2022 Not Available [facility] 3 07:25:54 Memory impairment 358990672 Active 2022 Not Available [facility] 3 07:25:54 Muscle weakness 48797687 Active 2023 RAYMOND Montesinos, [facility] [employer] [facility] 4 12:11:53 Impacted cerumen of bilateral ears 6389042718202 108 Active 2023 Debbie Bliss, [facility] [address], [address] , [facility] [employer] [facility] 4 10:25:49 Hand pain 96617600 Active 2023 AVI [address], [facility] [employer] [facility] 4 13:34:32 Notes:Some problems listed i n Document: #[id number] could not be added to this patient's chart. Please review this document and add these problems to the patient's chart manually as needed. Problem Notes None recorded. Procedures Surgical History Date Name Laterality Status Provider Name and Address Organization Details Recorded Time 11/18/19 Wound Care-Podiatry completed Gary Lee RN [facility] [employer] [facility] 11/17/2022 15:45:29 10/21/19 Wound Care-Podiatry completed Sally Kilgore RN [facility] [employer] [facility] 10/20/2022 15:12:18 08/23/20 23 Wound Care-Podiatry completed Gary Lee RN [facility] [employer] [facility] 10/13/2022 16:43:47 07/30/19 Nail Debridement completed Alexei Mendez DPM [address], [facility] [address], [place], [address], [place] [facility] [employer] [facility] 08/05/2022 13:06:25 06/04/19 17 Cataract Surgery completed Not Available [facility] 02/2022 00:54:26 03/20/19 14 Colonoscopy completed Not Available [facility] 04/22/19 00:54:26 Tonsillectomy and/or Adenoidectomy completed Not Available [facility] 04/21/2022 00:54:26 Imaging Results Imaging Date Name Status LastModified by Organization Details LastModified Time 10/19/2022 US, doppler, venous completed [email or web address] [facility] [address], [place], [address], 11/04/2022 17:12:48 10/19/2022 US, echocardiogram completed [email or web address] [facility] [address], [place], [address], 11/04/2022 17:14:30 11/04/2022 XR, chest, 2 view completed [email or web address] [facility] (Imaging) [address], [place], [address], 11/09/2022 14:29:49 03/14/2023 XR, chest, [address], [address], 03/15/2023 19:10:45 03/14/2023 CT, brain, w/o contrast completed [address], [address], 03/15/2023 19:10:54 03/14/2023 CT, abdomen + pelvis, w/o contrast completed [address], [address], 03/21/2023 16:14:10 03/15/2023 barium swallow study completed [address] [address], [place], [address], 03/21/2023 16:14:20 03/15/2023 MRI, brain, w/o contrast completed [address] [address], [place], [address], 03/21/2023 16:14:54 04/05/2023 XR, chest completed [address] [address], [place], [address], 04/12/2023 13:14:07 04/05/2023 CT, abdomen + pelvis, w/ contrast completed [address] [address], [place], [address], 04/12/2023 13:14:21 04/05/2023 XR, chest completed [address] [address], [place], [address], 04/12/2023 13:14:34 04/07/2023 XR, chest completed [address] [address], [place], [address], 04/12/2023 14:15:23 04/08/2023 XR, chest completed [address] [address], [place], [address], 04/12/2023 14:31:54 04/08/2023 XR, chest completed [address] [address], [place], [address], 04/12/2023 14:32:11 04/08/2023 US, echocardiogram completed [address] [address], [place], [address], 04/12/2023 14:33:17 04/09/2023 XR, chest completed [address], [place], [address], 04/12/2023 14:35:58 04/10/2023 XR, chest completed [address] [facility], [place], [address], 04/13/2023 11:21:04 04/11/2023 XR, chest completed [address] [place] [address], [address], 04/13/2023 11:22:03 04/13/2023 XR, chest completed [address] [place] [address], [address], 04/20/2023 15:53:19 04/14/2023 XR, chest completed [address], [address], 04/20/2023 15:53:20 04/14/2023 US, retroperitoneum completed [address] [place] [address], [address], 04/20/2023 15:53:20 05/23/2023 barium swallow study completed [address], [address], 05/28/2023 16:28:16 05/23/2023 barium swallow study completed [address] [place] [address], [address], 05/28/2023 14:48:02 02/09/2024 XR, hand completed [email or web address] [facility] [address] [facility] [address], [place], [address], 02/09/2024 14:10:17 Procedure Notes None recorded. Medical [...] mg by injectio n route. 2023 active [facility]: [id number] 4-20 Not Available Not Available Not [...] ne propionat e 50 mcg/actua tion nasal spray,[facility] 04/08 completed Not Available Not Available Not Available sertralin e 50 mg tablet active Not Available Not Available Not Available divalproe x 125 mg capsule,d elayed release sprinkle active Not Available Not Available Not Available tobramyci n 0.3 %-dexamet hasone 0.1 % eye drops,[facility] 04/08 completed Not Available Not Available [...] %) injection solution in office 11/04 completed [facility] [id number] 05-22 Not Available Not Available Not Available [...] Updated DateTime 3 167.64 cm 31.3 kg/m2 88072.9 2 g 97.9 [degF] 59 /min 118 mm[Hg] 74 mm[Hg] Suzanna Braxton [place] [facility] [employer] [facility] 3 14:45:34 Date Recorded Body height Heart rate Oxygen saturation Oxygen saturation in Arterial blood by Pulse oximetry Body temperature Systolic blood pressure Diastolic blood pressure Provider Name and Address Organization Details Last Updated DateTime 3 167.64 cm 58 /min 96 % 96 % 97.8 [degF] 129 mm[Hg] 66 mm[Hg] Gary Lee RN [facility] [employer] [facility] 3 15:37:13 Date Recorded Body height Body mass index (BMI) Body weight Body temperature Heart rate Systolic blood pressure Diastolic blood pressure Provider Name and Address Organization Details Last Updated DateTime 3 167.64 cm 31.5 kg/m2 20000.5 1 g 97.7 [degF] 60 /min 124 mm[Hg] 70 mm[Hg] Suzanna Braxton [place] [facility] [employer] [facility] 3 15:04:39 Date Recorded Body height Body mass index (BMI) Body weight Body temperature Provider Name and Address Organization Details Last Updated DateTime 11/02/2023 167.64 cm 29.1 kg/m2 65568.63 g 98.3 [degF] Mana Hernandez [facility] [employer] [facility] 11/02/2023 10:06:54 Date Recorded Body height Body mass index (BMI) Body weight Provider Name and Address Organization Details Last Updated DateTime 02/09/2024 167.64 cm 29.1 kg/m2 80175.63 g [employer] [facility] [employer] [facility] [employer] 02/09/2024 13:41:48 Social History Question Answer Notes LastModified by Organization Details LastModified Time Tobacco Smoking Status Former Smoker Not Available [facility] 04/21/2022 00:52:21 Do You Have An Advance Directive? No [id number] Information not available 04/21/2022 What Is Your Level Of Alcohol Consumption? Moderate Patient Reported One Mixed Drink A Night. [id number] Information not available 04/21/2022 Are You Blind Or Do You Have Difficulty Seeing? No [id number] Information not available 04/21/2022 What Is Your Level Of Caffeine Consumption? Moderate [id number] Information not available 04/21/2022 How Much Tobacco Do You Chew? None [id number] Information not available 04/21/2022 In The 14 Days Before Symptom Onset, Have You Had Close Contact With A Laboratory-conf irmed COVID-19 While That Case Was Ill? No [id number] Information not available 04/21/2022 In The 14 Days Before Symptom Onset, Have You Had Close Contact With A Person Who Is Under Investigation For COVID-19 While That Person Was Ill? No [id number] Information not available 04/21/2022 Are You Currently Employed? No [email or web address] Information not available 06/01/2022 Are You Deaf Or Do You Have Serious Difficulty Hearing? Yes Patient Wears Bilateral Hearing Aids; Still Having A Hard Time Hearing [email or web address] Information not available 06/01/2022 What Type Of Diet Are You Following? REGULAR MIGRATION.030 453751 Information not available 04/21/2022 Which Illicit Or Recreational Drugs Have You Used? None MIGRATION.030 999991 Information not available 04/21/2022 Do You Or Have You Ever Used E-cigarettes Or Vape? Never Used Electronic Cigarettes MIGRATION.030 811643 Information not available 04/21/2022 What Is The Highest Grade Or Level Of School You Have Completed Or The Highest Degree You Have Received? [id number] MIGRATION.030 994295 Information not available 04/21/2022 What Is Your Occupation? RETIRED MIGRATION.030 391828 Information not available 04/21/2022 How Many Days Of Moderate To Strenuous Exercise, Like A Brisk Walk, Did You Do In The Last 7 Days? 0 MIGRATION.030 753735 Information not available 04/21/2022 Have There Been Any Changes To Your Family Or Social Situation? No MIGRATION.030 234979 Information not available 04/21/2022 What Is The Fluoride Status Of Your Home? Unknown MIGRATION.030 924031 Information not available 04/21/2022 When Did You Quit Smoking? 17+yearssincelastc igarette MIGRATION.0301 597347 Information not available 04/21/2022 Are There Any Guns Present In Your Home? No MIGRATION.0301 763858 Information not available 04/21/2022 Do You Use Insect Repellent Routinely? No MIGRATION.0301 002283 Information not available 04/21/2022 Where Do You Live? SingleLevelHouse MIGRATION.0301 501009 Information not available 04/21/2022 Do You Have A Medical Power Of Teacher Of The Handicapped? No MIGRATION.0301 225044 Information not available 04/21/2022 What Was The Date Of Your Most Recent Tobacco Screening? 01/27/2023 [email or web address] Information not available 01/27/2023 Have You Ever Been Counseled For Unhealthy Alcohol Use? No MIGRATION.0301 528055 Information not available 04/21/2022 Do You Have Any Pets? No MIGRATION.0301 548258 Information not available 04/21/2022 What Is Your Relationship Status? MIGRATION.0301 613840 Information not available 04/21/2022 Do You Use Your Seat Belt Or Car Seat Routinely? Yes MIGRATION.0301 849495 Information not available 04/21/2022 Do You Have Smoke And Carbon Monoxide Detectors In Your Home? Yes MIGRATION.0301 242603 Information not available 04/21/2022 Are You Passively Exposed To Smoke? Yes MIGRATION.0301 485468 Information not available 04/21/2022 Do You Or Have You Ever Used Smokeless Tobacco? Never Used Smokeless Tobacco MIGRATION.0301 656405 Information not available 04/21/2022 Are There Any Smokers In Your House? No MIGRATION.0301 026146 Information not available 04/21/2022 How Much Tobacco Do You Smoke? No MIGRATION.0301 724982 Information not available 04/21/2022 What Types Of Sporting Activities Do You Participate In? None MIGRATION.0301 498984 Information not available 04/21/2022 Do You Feel Stressed (tense, Restless, Nervous, Or Anxious, Or Unable To Sleep At Night)? [id number] MIGRATION.0301 534648 Information not available 04/21/2022 Do You Use Any Illicit Or Recreational Drugs? No MIGRATION.0301 308681 Information not available 04/21/2022 Do You Use Sunscreen Routinely? No MIGRATION.0301 074833 Information not available 04/21/2022 Has Tobacco Cessation Counseling Been Provided? No MIGRATION.0301 915084 Information not available 04/21/2022 Have You Recently Traveled Abroad? No MIGRATION.0301 116315 Information not available 04/21/2022 Do You Have Any Dietary Restrictions? No MIGRATION.0301 317821 Information not available 04/21/2022 Do You Or Have You Ever Used Any Other Forms Of Tobacco Or Nicotine? No MIGRATION.0301 568506 Information not available 04/21/2022 Sex: Male Functional Status Question Answer Note LastModified by [employer] Details LastModified Time Do you have difficulty walking or climbing stairs? Yes MIGRATION.5668321 026 Information not available 04/21/2022 Do you have transportation difficulties? No MIGRATION.1863697 026 Information not available 04/21/2022 Are you able to walk? YESWOREST MIGRATION.1353781 026 Information not available 04/21/2022 Do you have difficulty doing errands alone? Yes MIGRATION.7763581 026 Information not available 04/21/2022 Are you able to care for yourself? Yes MIGRATION.5346453 026 Information not available 04/21/2022 Do you have difficulty dressing or bathing? No MIGRATION.3529771 026 Information not available 04/21/2022 What is your exercise level? None MIGRATION.3182020 026 Information not available 04/21/2022 Mental Status Question Answer Note LastModified by Organizat ion Details LastModified Time Do you have difficulty concentrating, remembering or making decisions? Yes MIGRATION.887834860 6 Information not available 04/21/2022 Family History Relationship Description Onset Age of this Age Resolved Age Notes LastModified by Organization Details LastModified Time Mother Myocardial infarction 69 MIGRATION.468 [id number] Not available 04/21/2022 00:54:34 Father Alzheimer's disease 75 MIGRATION.419 1668522 Not available 04/21/2022 00:54:34 Brother Cerebrovascu lar accident 78 MIGRATION.394 9576787 Not available 04/21/2022 00:54:34 Brother Alzheimer's disease deceas ed MIGRATION.462 2611654 Not available 04/21/2022 00:54:34 Brother Myocardial infarction MIGRATION.269 2881027 Not available 04/21/2022 00:54:34 Unspecified Relation Family history of Hypertension MIGRATION.770 0230206 Not available 04/21/2022 00:54:34 Son Atrial fibrillation [email or web address] Not available 0 11/04/2022 14:44:06 Notes:NO ENT Medical History Condition Response NERVE DISEASE N BLINDNESS N RHEUMATIC FEVER N KIDNEY STONES N BLADDER PROBLEMS N MRSA N OTHER # 1 Y POLIO N LUNG DISEASE/DISORDER Y COPD N RADIATION / CHEMOTHERAPY N Other # 2 N BLOOD DISEASES N SURGERY N EAR OR HEARING PROBLEMS N MUMPS N BOWEL PROBLEMS N DEPRESSION (INCLUDING POST ) N STROKE/TIA N ULCERS N BENIGN PROSTATIC HYPERPLASIA N MEASLES N MYOCARDIAL INFARCTION N OBESITY N GERD/NAUSEA N ANEURYSM N URINARY/BLADDER/KIDNEY PROBLEMS Y CORONARY ARTERY DISEASE (CAD) N ADDICTION CONCERNS N ENDOMETRIOSIS N Impotence N USE OF BLOOD THINNERS Y SKIN [...] APNEA N CHICKENPOX N INFECTIOUS DISEASE N HEART ARRHYTHMIA N PROSTATE Y INSOMNIA Y HIGH CHOLESTEROL / HYPERLIPIDEMIA Y HYPERTHYROIDISM N EYE PROBLEMS Y NEUROLOGICAL PROBLEMS N EDEMA N CHRONIC PAIN SYNDROME N HYPOTHYROIDISM N CAROTID BLOCKAGE N CONSTIPATION N BACK / NECK PROBLEMS N HAVE YOU BEEN HOSPITALIZED OR SEEN IN [facility] IN THE PAST YEAR ? Y ATHEROSCLEROSIS N BREAST PROBLEMS N DIALYSIS N ECZEMA N OSTEOPOROSIS N ARTHRITIS N APPENDICITIS N DIABETES, TYPE N BAD TEETH N ENT Y HEARTBURN / REFLUX N AUTISM SPECTRUM DISORDER (ASD) N HEPATITIS / LIVER DISEASE N GOUT N SLEEP DISORDER N ALZHEIMER'S DISEASE N Brain Problems N HERPES N DEMENTIA N HEADACHES/MIGRAINES N SEIZURES/EPILEPSY N VASCULAR DISEASE Y PACEMAKER N Blood Disorder N DIZZINESS N HEART DISEASE/HEART PROBLEMS N KIDNEY DISEASE N MULTIPLE SCLEROSIS N CARDIAC ARRHYTHMIA N CANCER: SPECIFY N ATRIAL FIBRILLATION N Gall Stones N PULMONARY EMBOLISM N AUTOIMMUNE DISEASE N Immunizations Vaccine Type Date Status Note Provider Nam e and Address Organization Details Recorded Time Influenza, high-dose, trivalent, PF 7 completed Not Available [facility]30[facility] 07:12:14 Influenza, split virus, trivalent, preservative 6 completed Not Available [facility] 03/30/2023 07:12:14 COVID-19, mRNA, LNP-S, PF, 30 mcg/0.3 mL dose 1 completed Not Available [facility] 03/30/2023 07:12:14 COVID-19, mRNA, LNP-S, PF, 30 mcg/0.3 mL dose 1 completed Not Available [facility] 03/30/2023 07:12:14 influenza, unspecified formulation 5 completed Not Available [facility] 03/30/2023 07:12:14 Influenza, high-dose, quadrivalent, PF 2 completed Not Available [facility] 03/30/2023 07:12:14 Influenza, high-dose, quadrivalent, PF 0 completed Not Available [facility] 03/30/2023 07:12:14 Influenza, high-dose, trivalent, PF 8 completed Not Available [facility] 03/30/2023 07:12:14 Past Encounters Encounter ID Performer Location Encounter Start Date Encounter Closed Date Diagnosis/Indication Diagnosis SNOMED-CT Code Diagnosis ICD10 Code Diagnosis Note [id number] [facility] [place] [address] [facility] [address] [place] [address] 05/05/2020 00:00:00 05/06/2020 13:22:32 [id number] [facility] [place] [address] [place] [address] 05/20/2020 00:00:00 05/20/2020 22:01:12 [id number] [facility] [address] [place] [address] 06/19/2020 00:00:00 06/20/2020 11:09:14 [id number] [facility] [place] [address] [place] [address] 09/18/2020 00:00:00 09/18/2020 21:47:59 [id number] [facility] [address] [place] [address] 09/29/2020 00:00:00 09/30/2020 16:57:27 [id number] [facility] [address] [place] [address] 12/01/2020 00:00:00 12/02/2020 13:10:32 [id number] [facility] [address] [place] [address] 02/02/2021 00:00:00 02/08/2021 20:10:35 [id number] [facility] [place] [address] [facility] [address] , [place] [address] 04/02/2021 00:00:00 04/26/2021 10:03:37 [id number] [facility] [address] [place] [address] 05/11/2021 00:00:00 05/12/2021 10:26:43 [id number] [facility] [address] [place] [address] 07/02/2021 00:00:00 07/05/2021 15:53:49 [id number] [facility] [place] [address] [facility] [address] , [place] [address] 07/23/2021 00:00:00 08/24/2021 22:02:14 [id number] [facility] [address] [place] [address] 10/01/2021 00:00:00 10/01/2021 14:43:32 [id number] [facility] [address] [place] [address] 10/20/2021 00:00:00 10/20/2021 17:22:01 [id number] [facility] [place] [address] [place] [address] 11/24/2021 00:00:00 11/24/2021 17:27:23 [id number] [facility] Internal [facility] [address] [facility] [address] , [place] [address] 12/01/2021 00:00:00 12/01/2021 18:04:03 [id number] [facility] [place] [address] [place] [address] 01/04/2022 00:00:00 01/04/2022 15:12:23 [id number] [facility] [place] [address] [place] [address] 03/08/2022 00:00:00 03/21/2022 17:27:24 [id number] Chadwick Argueta MD [facility] [address] [facility] [address] , [place] [address] 06/01/2022 15:23:51 06/01/2022 16:45:45 Diabetes mellitus 27810899 E11.9 Essential hypertension 58242061 I10 Edema 944589781 R60.9 Hyponatremia 12007963 E8 7.1 Insomnia 128095321 G47.0 0 [id number] Alexei Mendez DPM [facility] [place] [address] [place] [address] 07/29/2022 15:30:12 08/05/2022 15:15:30 Dystrophia unguium 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 Nails were debrided and greater than 50% length and thickness where needed. Unable to cut own toenails 340992469 Z74.1 [id number] Tariq Urias MD [facility] [place] [address] [place] [address] 08/31/2022 14:13:53 08/31/2022 14:52:18 Acquired trigger finger of right middle finger [id number] 89517 M65.331 Hand pain 50016029 M79.6 43 Trigger fi nger of right hand 0976008712 1785978 M65.30 discussed treatment options. Sterile technique and standard protocol injected 1 cc of xylocaine and 1 cc of Kenalog into the right long and right ring finger tendon sheath. Patient has about a 70% chance of improvemen t over the next 6 weeks. No improvemen t on him see Dr. Guo down at the [facility] office. [id number] Alexei Mendez DPM [facility] [address] [place] [address] 10/13/2022 16:00:47 10/13/2022 17:10:02 Peripheral venous insufficiency 05439053 I87.2 [facility]- return to the office for nurse visit on Tuesday for compressio n dressing after venous ultrasound Lymphedema of lower extremity 796373235 I89.0 recommend chronic compressio n therapycon tinue furosemide Ulcer of l ower extremity 79668027 L97.909 compressio n therapy with multilayer Profore dressing applied to the right lower extremityg entian katelin and compressio n dressing applied to the lower extremityk eep dressings clean and dry for 1 week [id number] Alexei Mendez DPM [facility] [address] [place] [address] 10/20/2022 14:53:33 10/20/2022 15:23:58 Ulcer of lower extremity 64818956 L97.909 compressio n therapy with multilayer Juan and Tubigrip dressing applied to the right lower extremityg entian katelin and compressio n dressing applied to the lower extremityk eep dressings clean and dry for 1 week Peripheral venous insufficiency 86377970 I87.2 follow up vascular recommenda tionsUpcom ing vascular venous ultrasound with [facility]- return to the office for nurse visit on Tuesday for compressio n dressing after venous ultrasound Lymphedema of lower extremity 993105430 I89.0 recommend chronic compressio n therapycon tinue furosemide [id number] Chadwick Argueta MD [facility] [place] [address] [place] [address] [facility] [place] [address] 11/04/2022 14:25:33 11/04/2022 15:36:25 Cough 01119731 R05.9 Insomnia 612108649 G47.0 0 Anxiety disorder 3269829 06 F41.9 Essential hypertension 04774479 I10 [id number] Alexei Mendez DPM [facility] [address] [place] [address] 11/17/2022 15:36:09 11/17/2022 16:20:59 Ulcer of lower extremity 23221658 L97.909 healededuc ated on compressio n socksRecom mend daily use of compressio n to prevent swelling and recurrence of woundsFoll ow-up in 2-3 months for routine foot care Peripheral venous insufficiency 29928326 I87.2 follow up vascular recommenda tions Lymphedema of lower extremity 961476633 I89.0 recommend chronic compressio n therapycon tinue furosemide [id number] Chadwick Argueta MD [facility] [place] [address] [facility] [place] [address] 01/27/2023 14:55:29 01/27/2023 16:17:33 Cough 74971005 R05.9 Fatigue 40036372 R53.83 Essential hypertension 13734966 I10 Insomnia 223922407 G47.0 0 Hyponatremia 74501632 E8 7.1 [id number] DEEPIKA Houser [facility] [place] [address] [place] [address] 11/02/2023 09:58:15 11/02/2023 14:27:16 Impacted cerumen of bilateral ears 5369518079 518459 H61.23 [id number] EUGENIA Wooten [facility] [place] [address] [place] [address] 02/09/2024 13:24:06 02/09/2024 14:02:05 Acquired trigger finger of right middle finger [id number] 84636 M65.331 Hand pain 67737901 M79.6 43 Health Concerns Section Related Observation LastModified by Organization Detai ls LastModified Time None Recorded Concern Status LastModified by Organization Details LastModified Time None Recorded Advance Directives Directive N: Payers Encounter Date Sequence Insurance Name Policy Number Policy Thomas Covered Member ID Thomas Member ID Guarantor Name 11/04/2022 1 [facility] Rahat Angel Albert [id number] Rahat Angel Albert 11/04/2022 2 [place] [id number] Rahat Angel Albert [id number] Rahat Angel Albert 11/17/2022 1 [facility]IC[facility] B[facility] Rahat Angel Albert [id number] Rahat Angel Albert 11/17/2022 2 [place] [id number] Rahat Angel Albert [id number] Rahat Angel Albert 01/27/2023 1 [facility]IC[facility] B[facility] Rahat Angel Albert [id number] Rahat Angel Albert 01/27/2023 2 [place] [id number] Rahat Angel Albert [id number] Rahat Angel Albert 11/02/2023 1 MEDICARE B: [facility] [place] Rahat Angel Albert [id number] Rahat Angel Albert 11/02/2023 2 [place] [id number] Rahat Angel Albert [id number] Rahat Angel Albert 02/09/2024 1 MEDICARE B: [facility] [place] Rahat Angel Albert [id number] Rahat Angel Albert 02/09/2024 2 [place] [id number] Rahat Angel Albert [id number] Rahat Angel Albert Notes Date Note Type Note Provider Name and Address Organization Details Recorded Time 3 text/html insomnia stableHypertension doing fine no headache no dizzinessHyperglycemia glucose intolerance needs J4pTpsxdfhyhpoo needs blood workObesity realistically he has not lose weightCough for about a week Chadwick Argueta MD [address], [place], [address], [facility] [employer] 11/07/2022 15:21:44 3 text/html . Patient is an 87-year-old male who presents to the office with a healed wound to the posterior right lower leg. Patient denies any new wounds or signs of infection. Patient was encouraged to continue Compression to the lower leg secondary to swelling to prevent recurrence. Alexei Mendez DPM [address], [address], [place], [address], [facility] [employer] 11/17/2022 16:13:09 3 text/html insomnia stableHypertension doing fine no headache no dizzinessHyperglycemia glucose intolerance needs R0hKfmnnldinzsx needs blood workObesity realistically he has not lose weightCough for about a week got better it has recurred in the last couple weeks there has not been any problems with coughing with eating Chadwick Argueta MD [address], [address], [place], [address], [facility] [employer] 01/28/2023 10:40:58 4 text/html This patient has [...] and does have significant dementia. DEEPIKA Houser [address], [facility] [address], [place], [address], [facility] [employer] 11/02/2023 10:37:51 4 text/html The patient is [...] He also has dementia and is a alf resident. He is not a great candidate [...] today with the patient. EUGENIA Wooten [address] [facility], [facility] [address], [place], [address], [place] [facility] 02/09/2024 14:11:15
--- OUTSIDE RECORDS SUMMARY | 2024-05-08 19:05 | XMS_ITS | CONTINUITY OF CARE DOCUMENT ---
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 Tata Erazo MD Hypercholesterolemia completed - Tata Erazo MD SHORTNESS OF BREATH active Tata Erazo MD ANXIETY DISORDER active Tata Erazo MD ANEMIA SMALL HEMORRHOIDS, 2 POLYPS, gastritis active Tata Erazo MD Family History of Sudden Car diac : completed - Tata Erazo MD Family History of Sudden Car diac : completed - Tata Erazo MD Elevated PSA active Tata Erazo MD Exposure to COVID-19 coronavirus active Gurvinder Erazo MD Ulcer of ankle active [place] Venous insufficiency, legs, b/l active Yamileth Fischer MD Lower extremity edema active Tata Trinh possible CVA completed - Tata Erazo MD Cough active Tata Erazo MD Hyperlipidemia active Tata Eraoz MD Dementia active Tata Erazo MD Cardiology examination active Cristopher Fischer MD Peripheral artery disease active Cristopher herring MD DVT active Cristopher Fischer MD ENCOUNTERS Date Type Provider Location Encounter Diag nosis - In-person encounter Office Visit Cristopher Fischer MD [facility] Cardiology examinationPeripheral artery diseaseDVT - In-person encounter Office Visit Tata Erazo MD [facility] Hypercholesterolemiapossible CVAHyperlipidemiaDementia - In-person encounter Office Visit Tata Erazo MD [facility] Lower extremity edemaCough - In-person encounter Office Visit Cristopher Fischer MD [facility] - In-person encounter Office Visit Cristopher Fischer MD [facility] Venous insufficiency, legs, b/l - In-person encounter Office Visit Cristopher Fischer MD [facility] - In-person encounter Office Visit Tata Erazo MD [facility] Ulcer of ankle - In-person encounter Office Visit Tata Erazo MD [facility] - In-person encounter Office Visit Tata Erazo MD [facility] Exposure to COVID-19 coronavirus - In-person encounter Office Visit Tata Erazo MD [facility] 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%, 12/2019 - In-person encounter Office Visit Tata Erazo MD [facility] - In-person encounter Office Visit Tata Erazo MD [facility] - In-person encounter Office Visit Tata Erazo MD [facility] - In-person encounter Office Visit Tata Erazo MD [facility] Elevated PSA - In-person encounter Office Visit Tata Erazo MD [facility] - In-person encounter Office Visit Tata Erazo MD [facility] - In-person encounter Office Visit Tata Erazo MD [facility] - In-person encounter Office Visit Tata Erazo MD [facility] - In-person encounter Office Visit Tata Erazo MD [facility] - In-person encounter Office Visit Tata Erazo MD [facility] Elevated PSA - In-person encounter Office Visit Tata Erazo MD [facility] - In-person encounter Office Visit Tata Erazo MD [facility] - In-person encounter Office Visit Tata Erazo MD [facility] Family History of Sudden Cardiac :Family History of Sudden Cardiac : - In-person encounter Office Visit Tata Erazo MD [facility] - In-person encounter Office Visit Tata Erazo MD [facility] ANEMIA SMALL HEMORRHOIDS, 2 POLYPS, gastritis - In-person encounter Office Visit Tata Erazo MD [facility] PHYSICAL EXAMINATION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%, 12/2019HypercholesterolemiaSHORTN ESS OF BREATHANXIETY DISORDER VITAL SIGNS Date Observation Value Provider Body Mass Index (Ratio) 29.05 kg/m2 Yamileth Fischer MD blood pressure, diastolic 68 mm[Hg] Tova Lui blood pressure, systolic 118 mm[Hg] Saima Lui oxygen saturation, oximetry 95 % Annemarie Lui pulse rate 61 /min Annemarie Lui respiratory rate E&M 12 /min Annemarie Lui weight E&M 180 [lb_av] Annemarie [place] height E&M 66 [in_i] Annemarie Lui blood pressure, cuff size regular An chacorta [place] Body Mass Index (Ratio) 29.05 kg/m2 Matt Erazo MD blood pressure, cuff size regular Donte bradley Rizzo blood pressure, diastolic 78 mm[Hg] Donte bradley Rizzo blood pressure, systolic 122 mm[Hg] Tab itha Rizzo oxygen saturation, oximetry 100 % Brittany Rizzo respiratory rate E&M 12 /min Brittany Rizzo pulse rate 65 /min Brittany Rizzo weight E&M 180 [lb_av] Brittany Rizzo height E&M 66 [in_i] Brittany Rizzo blood pressure, cuff size regular Ja rret blood pressure, diastolic 65 mm[Hg] Ja rret blood pressure, systolic 114 mm[Hg] Jar ret pulse rate 69 /min Gabe er y respiratory rate E&M 16 /min Gabe oxygen saturation, oximetry 97 % Gabe height E&M 66 [in_i] Gabe erda y Body Mass Index (Ratio) 30.34 kg/m2 Yamileth Fischer MD blood pressure, cuff size regular Ja rret blood pressure, diastolic 79 mm[Hg] Ja rret blood pressure, systolic 142 mm[Hg] Jar ret pulse rate 68 /min Gabe y respiratory rate E&M 12 /min Gabe oxygen saturation, oximetry 96 % Gabe weight E&M 188 [lb_av] Gabe y height E&M 66 [in_i] Gabe blood pressure, cuff size regular jesus manuel Banuelos blood pressure, diastolic 75 mm[Hg] jesus manuel Banuelos blood pressure, systolic 127 mm[Hg] She elsa Banuelos oxygen saturation, oximetry 98 % Mariajose Banuelos respiratory rate E&M 20 /min Mariajose Banuelos pulse rate 63 /min Mariajose Banuelos height E&M 66 [in_i] Mariajose Banuelos Body Mass Index (Ratio) 30.50 kg/m2 Yamileth Fischer MD blood pressure, cuff size regular rr blood pressure, diastolic 69 mm[Hg] Ja rret blood pressure, systolic 127 mm[Hg] Jar [facility] pulse rate 65 /min Gabe respiratory rate E&M 12 /min Gabe oxygen saturation, oximetry 96 % Gabe weight E&M 189 [lb_av] Gabe y height E&M 66 [in_i] Gabe Body Mass Index (Ratio) 30.99 kg/m2 Matt Erazo MD blood pressure, diastolic 76 mm[Hg] Tammy nkLogkoki blood pressure, systolic 144 mm[Hg] Paulina kLogkoki blood pressure, cuff size regular Ja rret blood pressure, diastolic 76 mm[Hg] Ja rret blood pressure, systolic 144 mm[Hg] Jar ret oxygen saturation, oximetry 96 % Gabe respiratory rate E&M 12 /min Gabe pulse rate 68 /min Gabe y weight E&M 192 [lb_av] Gabe y height E&M 66 [in_i] Gabe y Body Mass Index (Ratio) 29.86 kg/m2 Matt Erazo MD blood pressure, diastolic 78 mm[Hg] Lala quiroz [place] blood pressure, systolic 130 mm[Hg] Harjinder dimas [place] oxygen saturation, oximetry 97 % Hailey [place] pulse rate 86 /min [facility] E&M 185 [lb_av] [facility] blood pressure, cuff size large Lala quiroz [place] respiratory rate E&M 16 /min Eliana thais [place] height E&M 66 [in_i] Hailey Beth d Body Mass Index (Ratio) 29.86 kg/m2 Matt [...] Erazo MD blood pressure, diastolic 78 mm[Hg] Tammy nkLogic blood pressure, systolic 151 mm[Hg] Paulina [...] Matt Erazo MD blood pressure, resting Yes [place] [facility] O'Andrea blood pressure, diastolic 70 mm[Hg] Ma rsha O'Andrea blood pressure, systolic 120 mm[Hg] Mar [facility] O'Andrea oxygen saturation, oximetry 98 % Kika O'Andrea respiratory rate E&M 16 /min Kika O'Andrea pulse rate 64 /min Kika O'Andrea weight E&M 195 [lb_av] Kika O'Andrea height E&M 66 [in_i] Kika O'Andrea Body Mass Index (Ratio) 31.47 kg/m2 Matt Erazo MD blood pressure, cuff size large Ke rri Gruenenfelder blood pressure, diastolic 70 mm[Hg] Ke rri Gruenenfeldsebastian blood pressure, systolic 120 mm[Hg] Olga Reina oxygen saturation, oximetry 97 % Marissa Nuno respiratory rate E&M 18 /min Marissa diaznfelder pulse rate 62 /min Marissa Amelie lder weight E&M 195 [lb_av] Marissa Amelie lder height E&M 66 [in_i] Marissa Kinsey ldsebastian pulse rate 63 /min Tata Erazo MD blood pressure, diastolic 71 mm[Hg] To carmela Erazo MD blood pressure, systolic 129 mm[Hg] Gurvinder Erazo MD Body Mass Index (Ratio) 32.44 kg/m2 Matt Erazo MD blood pressure, resting Yes Matt Erazo MD blood pressure, cuff size regular Cy anya Sanderson blood pressure, diastolic 80 mm[Hg] Cy anya Sanderson blood pressure, systolic 120 mm[Hg] Kelsea michael Sanderson oxygen saturation, oximetry 97 % Taamr Sanderson respiratory rate E&M 16 /min Tamar [...] MD blood pressure, diastolic 93 mm[Hg] Irving Proctor Freeman blood pressure, systolic 179 mm[Hg] Darlene Freeman oxygen saturation, oximetry 97 % Roberto Freeman respiratory rate E&M 18 /min Stephanie Freeman pulse rate 74 /min Roberto riojas weight E&M 204.6 [lb_av] Roberto chavison height E&M 66 [in_i] Roberto buckneron Body Mass Index (Ratio) 33.25 kg/m2 Matt Erazo MD blood pressure, cuff size regular Ke rri Nuno blood pressure, diastolic 90 mm[Hg] Ke rri Nuno blood pressure, systolic 142 mm[Hg] Olga Reina oxygen saturation, oximetry 95 % Marissa Reina respiratory rate E&M 18 /min Marissa elaine pulse rate 72 /min Marissa Kinsey lder weight E&M 206 [lb_av] Marissa Amelie lder height E&M 66 [in_i] Marissa Amelie lder Body Mass Index (Ratio) 32.76 kg/m2 Matt Erazo MD blood pressure, cuff size regular Ke rri Nuno blood pressure, diastolic 71 mm[Hg] Ke rri Ginnfmartínez blood pressure, systolic 132 mm[Hg] Olga Reina oxygen saturation, oximetry 96 % Marissa Reina respiratory rate E&M 16 /min Marissa diaznfelder pulse rate 70 /min Marissa Maribelthais er weight E&M 203 [lb_av] Marissa Samuelsheniarasheeda er height E&M 66 [in_i] Marissa Samuelsheniarasheeda er blood pressure, diastolic 76 mm[Hg] To carmela Erazo MD blood pressure, systolic 140 mm[Hg] Ton malachi Erazo MD pulse rate 65 /min Marissa Samuelkatipatrickthais er oxygen saturation, oximetry 96 % Marissa Nuno respiratory rate E&M 16 /min Marissa Godwin [place] Body Mass Index (Ratio) 32.76 kg/m2 Simms i Nuno weight E&M 203 [lb_av] Marissa Amelie er blood pressure, diastolic 80 mm[Hg] Irving Freeman blood pressure, systolic 150 mm[Hg] Darlene Freeman pulse rate 68 /min Roberto riojas oxygen saturation, oximetry 96 % Roberto Freeman respiratory rate E&M 18 /min Stephanie Freeman Body Mass Index (Ratio) 32.83 kg/m2 Anny Freeman weight E&M 203.4 [lb_av] Roberto solitario blood pressure, diastolic 89 mm[Hg] Nc yumisa Saucedo blood pressure, systolic 162 mm[Hg] Glenda trice Lewis pulse rate 72 /min Vidya Lewis oxygen saturation, oximetry 97 % Vidya Lewis respiratory rate E&M 18 /min Vidya Lewis Body Mass Index (Ratio) 32.96 kg/m2 Carlotta suha Lewis weight E&M 204.2 [lb_av] Vidya Lewis blood pressure, diastolic 89 mm[Hg] Irving Freeman blood pressure, systolic 186 mm[Hg] Darlene Freeman Body Mass Index (Ratio) 33.34 kg/m2 Anny Freeman pulse rate 65 /min Roberto riojas oxygen saturation, oximetry 92 % Roberto Freeman respiratory rate E&M 18 /min Stephanie Freeman weight E&M 206.6 [lb_av] Roberto solitario Body Mass Index (Ratio) 32.60 kg/m2 Carlotta borden Fernandez blood pressure, khalil tolic, second observation 62 mm[Hg] Vidya Fernandez blood pressure, syst olic, second observation 124 mm[Hg] Vidya Fernandez blood pressure, diastolic 62 mm[Hg] Me yumi Fernandez blood pressure, systolic 124 mm[Hg] Glenda [place] Fernandez pulse rate 70 /min Vidya Fernandez oxygen saturation, oximetry 95 % Vidya Fernandez respiratory rate E&M 18 /min Vidya Fernandez weight E&M 202 [lb_av] Vidya Fernandez Body Mass Index (Ratio) 31.91 kg/m2 Mae [place] Matthews blood pressure, diastolic 72 mm[Hg] Ch erese Matthews blood pressure, systolic 149 mm[Hg] Zoe rese Matthews pulse rate 62 /min Mala Matthews oxygen saturation, oximetry 94 % Mala Matthews respiratory rate E&M 16 /min Mala Matthews weight E&M 197 [lb_av] Mala Matthews Body Mass Index (Ratio) 32.56 kg/m2 Anea leslie Armaan blood pressure, diastolic 64 mm[Hg] An eatris Brown blood pressure, systolic 118 mm[Hg] Ane atris Brown pulse rate 70 /min Aneatris Brown oxygen saturation, oximetry 95 % Aneatris Brown respiratory rate E&M 18 /min Demetri [facility] weight E&M 201 [lb_av] Aneatrernesto [facility] height E&M 66 [in_i] Fredo [facility] ALLERGIES No Known Drug Allergies RESULTS Date [...] 3.8 Low urea nitrogen/creatinine ratio, serum [facility].0 [facility] Glomerular Filtration Rate (calc) 76.4 [...] 3.5 - 5.2 calcium, serum 9.9 mg/dL [facility] 8.6 - 10.2 aspartate aminotransferase (SGOT), serum 30.0 1/L [facility] 0.0 - 40.0 alkaline phosphatase, serum 70.0 1/L [facility] 40.0 - 130.0 alanine aminotransferase (SGPT), serum 37.0 1/L [facility] 0.0 - 41.0 protein, total, serum 6.2 g/dL [facility] 6.6 - 8.7 Low bilirubin, serum, total 0.4 mg/dL [facility] 0.0 - 1.2 urea nitrogen, blood 18.0 mg/dL [facility] 8.0 - 23.0 blood glucose, random 106.0 mg/dL [facility] 74.0 - 99.0 High red blood cell distribution width, size density 44.0 fL [facility] - immature granulocytes, percentage of total cells, blood 0.2 % [facility] - nucleated red blood cells as percent of blood leukocytes 0.0 % [facility] - red blood cell (erythrocyte) count, per high power field 0.0 10*3/UL [facility] - eosinophils as percent of blood leukocytes 2.8 % [facility] - neutrophils as percent of blood leukocytes 59.9 % [facility] - Absolute Neutrophils 3.9 CELLS/UL [facility] 1.5 - 7.8 basophils as percent of blood leukocytes 0.3 % [facility] - Absolute Basophils 0.0 CELLS/UL [facility] 0.0 - 0.2 monocytes as percent of blood leukocytes 9.9 % [facility] - Absolute Monocytes 0.7 CELLS/UL [facility] 0.2 - 1.0 lymphocytes as percent of blood leukocytes 26.9 % [facility] - Absolute Lymphocytes 1.8 CELLS/UL [facility] 0.9 - 3.9 mean platelet volume 10.5 (?) [facility] - platelet count 229.0 THOUSAND/ UL [facility] 100.0 - 400.0 mean corpuscular hemoglobin concentration, RBC 34.3 G/DL [facility] 31.0 - 38.0 mean corpuscular hemoglobin, RBC [...] 144.0 iron saturation percent, serum 20.5 % [facility] 20.0 - 50.0 iron binding capacity, total 331.8 ug/dL [facility] 250.0 - 450.0 hemoglobin A1C, blood, as % of total hemoglobin 5.5 % [facility] 4.0 - 5.6 reticulocyte count, absolute 0.084 10*6 CELLS/UL [facility] - reticulocyte count, blood, uncorrected 1.98 % [facility] 0.50 - 2.00 very low density lipoproteins 47.4 mg/dL [facility] 5.0 - 40.0 High LDL/HDL (low-density lipoprotein/high-den sity lipoprotein) ratio 2.0 RATIO [facility] - lipoprotein, beta, serum, point, quantitative, calculated 118.6 (?) [facility] - HDL cholesterol, serum 58.0 mg/dL [facility] 35.0 - 55.0 High cholesterol, serum 224.0 mg/dL [facility] 0.0 - 200.0 High triglyceride, serum, fasting 237.0 mg/dL [facility] 0.0 - 150.0 High HISTORY OF MEDICATION USE Medication Status Instructions Dates Provider Indications Com ments Depakote 250 mg tablet,delayed release (DR/EC) active Annemarie Lui divalproex 125 mg capsule, delayed rel sprinkle active Tata Erazo MD hydroxyzine pamoate 25 mg capsule completed - 07/26 Tata Erazo MD metoprolol tartrate 50 mg tablet active [place] trazodone 50 mg tablet active [place] chlorthalidone 25 mg tablet completed - 06/27 [place] metoprolol succinate 50 mg tablet extended release 24 hr completed TAKE 1 TABLET BY MOUTH EVERY DAY 03/27 - 06/27 Emir Pritchettzai Farxiga 5 mg tablet completed - 06/27 Emir Pritchettzaverónica furosemide 40 mg tablet active Take 1 tablet by mouth once a day 09/21 Emir Pritchettzaverónica losartan 100 mg tablet completed Take 1 tablet by mouth once a day 08/19 - 06/27 Emir Pritchettzaverónica metoprolol succinate 50 mg tablet extended release 24 hr completed Take 1 tablet by mouth once a day TAKE 1 TABLET BY MOUTH EVERY DAY 04/27 [facility] completed TAKE 1 TABLET BY MOUTH EVERY DAY 04/19 - 08/19 [place] potassium chloride 20 mEq tablet extended release active Tabitha Ramila metoprolol succinate 50 mg tablet extended release 24 hr completed TAKE 1 TABLET BY MOUTH EVERY DAY 07/28 - 04/27 Lidia Cheema chlorthalidone 25 mg tablet completed TAKE 1 TABLET BY MOUTH EVERY DAY 04/12 - 09/21 [place] tamsulosin 0.4 mg capsule active TAKE 1 CAPSULE BY MOUTH EVERY DAY 03/15 Gabe Vitamin B-12 1,000 mcg tablet active 1 tablet once a day 06/30 Kika [facility] MELATONIN 5 MG ORAL CAPSULE completed take one pill at bedtime as needed 03/01 - 06/30 Kika O'[facility]rea EYLEA SOLUTION completed left eye 1 out of 5 weeks 03/01 - 06/30 Kika O'[facility]rea Lipitor 10 mg tablet active 1 tablet on ce a day 03/01 Kika O'Andrea famotidine 20 mg tablet active 1 tablet once a day 05/28 Tata Erazo MD LAMISIL 250 MG ORAL TABLET completed One tablet daily - 10/26 Marissa Reina PreserVision AREDS [phone] [id number] capsule active 1 twice a day 09/21 [...] TABLET active 500 mg twice a day RobertoGabriella Freeman BENADRYL 25 MG ORAL CAPSULE completed as needed - 06/30 Kika Saez BENICAR HCT 40-25 MG ORAL TABLET completed ONE TAB. DAILY 04/13 - Tata Erazo MD BENMARTÍN HCT 20-12.5 MG ORAL TABLET completed ONE TAB. DAILY 03/30 - 04/13 Tata Lux COMPLETE ORAL TABLET completed take one pill a day 03/08 - 06/30 Kika Saez VITAMIN D TABLET active Aneatris Brown GLUCOSAMINE [...] completed one tab 2x daily - Tata rEazo MD ZANTAC 75 75 MG ORAL TABLET [...] Date Observation Value Provider alcohol use no Cristopher Fischer MD smoking, year quit 25 yrs Cristopher langford MD smoking history, tot al pack/year 8 Cristopher Fischer MD cigarette use yes Cristopher Trinh smoking status Former smoker Cristopher Fischer MD alcohol use no [place] smoking, year quit 25 yrs Emir smith smoking history, tot al pack/year 8 [place] cigarette use yes [place] smoking status Former smoker Emir Dave i social history reviewed E&M revi ewed - no changes required Cristopher Fischer MD social history E&M Marital Statu s: Smoking History: Reji lockett is a former smoker. Cristopher Fischer MD smoking status Former smoker Cristopher Fischer MD social history E&M Marital Statu s: Smoking History: Reji lockett is a former smoker. Cristopher Fischer MD social history reviewed E&M revi ewed - no changes required Cristopher Fischer MD smoking, year quit 25 yrs Mariajose crook cigarette use yes Mariajose Banuelos smoking status Former smoker Mariajose lew social history reviewed E&M revi ewed - no changes required Cristopher Fischer MD social history reviewed E&M revi ewed - no changes required [place] social history E&M Marital Statu s: Smoking History: P levy is a former smoker. Emir Ahmedzai smoking, year quit 1991 Hailey Garcias smoking history, tot al pack/year 8 Hailey Garcias cigarette use yes Hailey Catalan nd smoking status Former smoker Hailey florian social history reviewed E&M revi ewed - no changes required Emir Pritchettzai social history reviewed E&M revi ewed - no changes required Emir Pritchettzai social history reviewed E&M revi ewed - no changes required Tata Erazo MD social history E&M Marital Statu s: Smoking History: P levy is a former smoker. Alexei Fuentes social history reviewed E&M revi ewed - no changes required Alexei Fuentes smoking, year quit 1991 Kika O' Andrea smoking history, tot al pack/year 8 Kika O'Andrea cigarette use yes Kika O'Andrea smoking status Former smoker Kika O'Jossie l social history E&M Marital Statu s: Smoking History: P levy is a former smoker. Alexei Fuentes social history reviewed E&M revi ewed - no changes required Alexei Fuentes smoking, year quit 1991 Marissa Francia vallejo smoking history, tot al pack/year 8 Marissa Ginnfsamreener cigarette use yes Marissa Maribel soliz smoking status Former smoker Marissa Samuelkati nfelder social history E&M Marital Statu s: Smoking History: P atkatlyn is a former smoker. Tata Erazo MD smoking, year quit 1991 Tata andrade MD smoking history, tot al pack/year 8 Tata Erazo MD cigarette use yes Tata Trinh smoking status Former smoker Tata Erazo MD social history reviewed E&M revi ewed - no changes required Tata Erazo MD smoking, year quit 1992 Tata andrade MD cigarette use yes Tata Trinh smoking status Former smoker Tata Erazo MD social history E&M Marital Statu s: Smoking History: P atkatlyn is a former smoker. Tata Erazo MD social history reviewed E&M revi ewed - no changes required Tata Erazo MD social history E&M Marital Statu s: Smoking History: P atient is a former smoker. Tata Erazo MD social history reviewed E&M revi ewed - no changes required Tata Erazo MD alcohol use no Jeane Oliverio smoking status Former smoker Jeane Oliverio social history reviewed E&M revi ewed - no changes required Tata Erazo MD social history E&M Marital Statu s: Smoking History: P atient is a former smoker. Tata Erazo MD alcohol use no Jeane Oliverio smoking status Former smoker Jeane Oliverio social history reviewed E&M revi ewed - no changes required Tata Erazo MD social history E&M Marital Statu s: Smoking History: Reji lockett is a former smoker. Tata Erazo MD number of grandchildren Tata Erazo MD T lou Erazo MD alcohol use no Roberto Cordero nsbrianna smoking status Former smoker Roberto Cerrato social history reviewed E&M revi ewed - no changes required Tata Erazo MD alcohol use no Marissa Gruenenfe lder smoking status Former smoker Marissa Gruene nfelder social history reviewed E&M revi ewed - no changes required Tata Erazo MD alcohol use no Marissa Gruenenfe lder smoking status Former smoker Marissa Gruene nfelder social history reviewed E&M revi ewed - no changes required Tata Erazo MD alcohol use no Marissa Kinsey lder smoking status Former smoker Marissa nguyeneldsebastian social history reviewed E&M revi ewed - no changes required Tata Erazo MD smoking status Former smoker Roberto Cerrato social history reviewed E&M revi ewed - no changes required Tata Erazo MD smoking status Former smoker Vidya Saucedo social history reviewed E&M revi ewed - no changes required Tata Erazo MD smoking status Former smoker Roberto Cerrato smoking status Former smoker Vidya mariano social history reviewed E&M reviewed Tata Erazo MD social history E&M Marital Status: Marrm Erazo MD social history reviewed E&M reviewed Tata Erazo MD smoking history, tot al pack/year 8 Fredo Crook smoking, year quit 1991 Fredo Crook smoking status former smoker Fredo Rafael ash MENTAL STATUS Date Observation Value Provider [...] name Policy type / Coverage type [employer] party ID [employer] MEDICARE Medicare [id number] [employer] [id number] ADVANCE DIRECTIVES Name Date DISCUSSED - NO DECISION MADE TREATMENT PLAN Date Name Performer [id number],C, B P today: 142/79 P rior BP: [...] by mouth every day Cristopher Fischer MD [id number],C,H is sores have healed and he is compliant with his compression stockings. I f his Sx worsen I recommend doing a venaseal procedure. Cristopher Fischer MD [id number],C,resolved Yamileth Fischer MD [id number],C,w ound care managing. H e will follow up in 1 month to evaluate Cristopher Fischer MD [id number],C,S ignificant bilaterally, will treat conservatively Cristopher Fischer MD [id number],C,Will recheck venous doppler Cristopher Fischer MD [id number],C,P t should consult wound care either at [facility] Cristopher Fischer MD [id number],S, Emir Dave i [id number],S, Emir Watsonmedza i [id number],S, Emir Dave i [id number],S, Emir Watsonmedza i [id number],S, Emir Watsonmedza i [id number],S, Emir Watsonmedenrique i [id number],S, Emir Ahmedza i [id number],S, Emir Ahmedza i [id number],S, Emir Ahmedza i [id number],S, Emir Ahmedza i [id number],S, Emir Ahmedza i [id number],S, Emir Ahmedza i [id number],B, Emir Ahmedza i [id number],B, Emir medza i [id number],S, Emir Shirleymedza i [id number],S, Emir Ahmedza i [id number],S, Emir Ahmedza i [id number],S, Emir Shirleymedza i [id number],B, Emir Shirleymedza i [id number],S, Emir Shirleymedza i Cardiology:chronic f or him c ontinue fahad Fischer MD Cardiology: H is updated medication list for this problem includes: Furosemide 40 Mg Tablet (Furosemide) ..... Take 1 tablet by mouth once a day Metoprolol Tartrate 50 Mg Tablet (Metoprolol tartrate) BP today: 118/68 P rior BP: 122/78 (07/27/2023) Labs Reviewed: C reat: 1.0 (09/22/2016) C hol: 196.0 (09/22/2016) HDL: 70.0 (09/22/2016) LDL: 104.0 (?) (09/22/2016) T.0 (09/22/2016) Cristopher Fischer MD Cardiology:Continue medical therapy only n o limitation in daily taks p atient in no distress T his visit has been a part of the consistent, comprehensive, and ongoing management of the chronic medical condition(s) listed above for the patient. Cristopher Fischer MD Cardiology:agree wit h continuing apixaban c ontinue AC for 1-4 more months Cristopher Fischer MD Cardiology Tata Erazo MD Cardiology: H [...] Tablet (Metoprolol tartrate) Tata Erazo MD [facility]iology [facility]: O rders: C XR- PA/Lat ([id number]) [facility]: B P today: 114/65 P rior BP: 142/79 (11/29/2022) Labs Reviewed: C reat: 1.0 (09/22/2016) C hol: 196.0 (09/22/2016) HDL: 70.0 (09/22/2016) LDL: 104.0 (?) (09/22/2016) T.0 (09/22/2016) [facility]: H is updated medication list for this problem includes: Furosemide 40 Mg Tablet (Furosemide) ..... Take 1 tablet by mouth once a day Metoprolol Tartrate 50 Mg Tablet (Metoprolol tartrate) Chlorthalidone 25 Mg Tablet (Chlorthalidone) [facility]: H is updated medication list for this problem includes: Lipitor 10 Mg Tablet (Atorvastatin) ..... 1 tablet once a day [facility]: B P today: 142/79 P rior [...] should consult wou nd care either at [facility] Cristopher Fischer MD Cardiology [facility] [...] up Tata rodriguez MD Cardiology follow up [place] rodriguez MD Cardiology follow up Toniya Taurus rodriguez MD Cardiology follow up Toniya Taurus rodriguez MD Cardiology follow up Toniya Taurus rodriguez MD Cardiology follow up Toniya Taurus rodriguez MD Cardiology Tata Erazo MD Cardiology [...] (09/22/2016) Tata Erazo MD Cardiology Follow up Toniya Taurus rodriguez MD Cardiology Follow up Toniya Taurus rodriguez MD Cardiology Follow up Toniya Taurus rodriguez MD Cardiology Follow up Toniya Taurus rodriguez MD Cardiology Follow up Toniya Taurus rodriguez MD Cardiology Follow up Toniya Taurus rodriguez MD Cardiology Follow up Toniya Taurus rodriguez MD Cardiology Follow up Toniya Taurus rodriguez MD Cardiology Follow up Toniya Taurus rodriguez MD Cardiology Follow up Toniya Taurus rodriguez MD Cardiology Follow up Toniya Taurus rodriguez MD Cardiology Follow up Toniya Taurus rodriguez MD Cardiology Follow up Toniya Taurus rodriguez MD Cardiology Follow up Toniya Taurus rodriguez MD Cardiology Follow up Toniya Taurus rodriguez MD Cardiology [place] Erazo MD Cardiology Tata Erazo MD Cardiology Tata Erazo MD Cardiology [place] Erazo MD Cardiology Tata Erazo MD Cardiology [...] this problem includes: Felodipine Er 10 Mg [id number] (Felodipine) ..... One daily Hydrochlorothiazide 25 Mg Tabs (Hydrochlorothiazide) ..... One tab daily Bystolic 5 Mg Tabs (Nebivolol hcl) ..... One tab. daily Aspirin 81 Mg Tabs (Aspirin) ..... One tab. twice daily BP today: 149/72 Prior BP: 118/64 (03/16/2013) Tata Erazo MD new patient visit: H is updated medication list for this problem includes: Felodipine Er 10 Mg [id number] (Felodipine) ..... One daily Hydrochlorothiazide 25 Mg [...] this problem includes: Felodipine Er 10 Mg [id number] (Felodipine) ..... One daily Hydrochlorothiazide 25 Mg [...] Procedure Name Provider Procedure Notes S tatus Complex e/m visit add on Cristopher Fischer MD completed EKG Cristopher Fischer MD completed EKG Tata Erazo MD completed EKG Tata Erazo MD completed EKG Tata Erazo MD completed EKG Tata Erazo MD completed SNOMED-CT: 47171414 Physical Exam, Performed: Pulse Exam of Foot Tata Erazo MD completed EKG Tata Erazo MD completed SNOMED-CT: 560155651 585262 Current Medications Documented Tata Erazo MD completed SNOMED-CT: 29905558 Physical Exam, Performed: Pulse Exam of Foot Tata Erazo MD completed SNOMED-CT: 461943099 385177 Current Medications Documented Tata Erazo MD completed SNOMED-CT: 93652649 Physical Exam, Performed: Pulse Exam of Foot Tata Erazo MD completed SNOMED-CT: 858576416 665224 Current Medications Documented Tata Erazo MD completed SNOMED-CT: 86754124 Physical Exam, Performed: Pulse Exam of Foot Tata Erazo MD completed SNOMED-CT: 256050611 515159 Current Medications Documented Tata Erazo MD completed SNOMED-CT: 94127778 Physical Exam, Performed: Pulse Exam of Foot Tata Erazo MD completed EKG Tata Erazo MD completed SNOMED-CT: 514040460 833607 Current Medications Documented Tata Erazo MD completed SNOMED-CT: 92276468 Physical Exam, Performed: Pulse Exam of Foot Tata Erazo MD completed SNOMED-CT: 850982013 019313 Current Medications Documented Tata Erazo MD completed EKG Tata Erazo MD completed EKG Tata Erazo MD completed
[2024-05-08 19:06] LABS: NT Pro B Type Natriuretic Pept 1570 pg/mL (19.9-100)
--- NOTE | 2024-05-08 19:14 | PC.NURSE ---
This RN called pharmacy about Tylenol suppository and they said they were tubing it to the dept. now
[2024-05-08] MEDS: ACETAMINOPHEN 325 MG SUPPOSITORY RECTAL (19:27)
[2024-05-08] MEDS: LACTATED RINGERS 500 ML 999 ML IV CONT ×2 (19:29→21:27)
[2024-05-08 19:37] VITALS: BP 138/64; PULSE 79; RESP 16; O2SAT 96
--- NOTE | 2024-05-08 20:07 | PC.NURSE ---
EUGENIA Chand aware that we are unable to collect urine at this time.
--- NOTE | 2024-05-08 20:30 | PC.NURSE ---
Pt. transferred to a hospital bed with fresh linens.
[2024-05-08 20:52] VITALS: BP 158/62; PULSE 73; RESP 16; O2SAT 97
--- NOTE | 2024-05-08 21:19 | PC.NURSE ---
Hospice nurse at bedside speaking with pt. and pt. . EUGENIA calabrese.
--- NOTE | 2024-05-08 21:23 | PC.NURSE ---
This RN called pharmacy for 500mL LR bag d/t floor pyxis being out of stock and they are tubing it up now.
[2024-05-08 21:31] LABS: Add Urine Microscopic? YES; Appearance Urine Turbid (Clear); Bacteria Urine 4+ /hpf; Bilirubin Urine Negative (Negative); Blood Urine 2+ (Negative); Color Urine Yellow (Yellow); Glucose Urine UA Negative (Negative); Ketones Urine Trace mg/dL (Negative); Leukocyte Esterase Ur 3+ LEU/UL (Negative); Nitrate Urine Positive (Negative); Non Pathogenic Casts 0-2; Protein Urine 2+ mg/dL (Negative); RBC Urine 21-50 /hpf (0-2); Specific Grav Ur 1.016 (1.001-1.035); Squamous Epithelial Cell Urine None Seen /hpf (Few); WBC Urine >100 /hpf (0-3)
--- NOTE | 2024-05-08 22:52 | PC.NURSE ---
pt to CT. IV fluids paused
[2024-05-08 23:22] VITALS: BMI 21.7
[2024-05-08 23:30] VITALS: BP 161/61; PULSE 70; RESP 16; TEMP 36.1; O2SAT 97
[2024-05-08] MEDS: DEXTROSE 5%/0.45% SOD CHL 1,000 ML 100 ML IV CONT (23:30)
--- NOTE | 2024-05-08 23:56 | PM.IMHP ---
H&P: HPI History of Present Illness Date/Time: 05/08/24 23:56 Chief Complaint: Increased work of breathing, lethargic Narrative: 89-year-old male with a past medical history of relatively the advanced dementia, glaucoma, GERD, essential hypertension, BPH and chronic anticoagulation who presented to the ER from [facility] due increased work of breathing and lethargy. The patient tested positive for COVID 4 days ago and has been ill for about 7 days. His oxygen saturations were 90% on room air. EMS put him on 4 L nasal cannula in transit but patient was weaned back down to room air and her facility and was satting between 94-100% on room air. Patient's temperature on arrival was 99.2. He did not have white count. His sodium was elevated at 156 his creatinine was 1.41. We do not have any prior labs available for comparison. His urine was suspicious for UTI with 2+ protein trace ketones positive nitrates 3+ esterase and 21-50 RBCs and greater than 100 wbc's with 4+ bacteria and no squamous cell. His COVID PCR was still testing positive. The patient would open his eyes whenever his name was called but was unable to provide any history. He would not squeeze my hand under direction but when I tried to move void from the patient he did reach out and touch my hand but then again would not follow commands. Review of Systems Review of Systems: Review of systems unobtainable due to patient's history of dementia. ROS unobtainable: Yes unobtainable due to mental status PMFSH Past Medical History Medical History (Updated 05/09/24 @ 07:48 by Brittany Juarez DO) Hearing loss Macular degeneration Chronic kidney disease Depression GERD (gastroesophageal reflux disease) Glaucoma Chronic anticoagulation BPH (benign prostatic hyperplasia) Essential hypertension Dementia Family History Family History Mother Cerebrovascular accident Father Alzheimer dementia Social History Social History (Updated 05/09/24 @ 07:49 by Brittany Juarez DO) Social History: Code status: DNR/DNI Surrogate decision maker: Anny Price () Smoking status: Former smoker Alcohol intake: former Substance use: never Substance use type: does not use Do You Feel Safe in your Home?: Yes Lack of Transportation: No Lack of Food: Never True Current Housing: I Have Housing Concerned About Future Housing: No Difficulty Paying Gas/Electric Bills: No Difficulty Paying for Meds: YES Currently Unemployed: No Education: Bachelor's Degree Difficulty w/ Childcare or Family Care: No Spiritual care concerns: Yes Meds Home Medications and Allergies Home Medications ?Medication ?Instructions ?Recorded ?Confirmed ?Type acetaminophen 500 mg capsule 1,000 mg PO Q6H PRN fever or pain 05/08/24 05/08/24 History apixaban 5 mg tablet (Eliquis) 5 mg PO Q12H 05/08/24 05/08/24 History aspirin 81 mg tablet,delayed 81 mg PO DAILY 05/08/24 05/08/24 History release (Adult Aspirin Regimen) atorvastatin 10 mg tablet 10 mg PO QPM 05/08/24 05/08/24 History brimonidine 0.2 %-timolol 0.5 % 1 drp LEFT EYE Q12H 05/08/24 05/08/24 History eye drops buspirone 5 mg tablet 5 mg PO TID 05/08/24 05/08/24 History divalproex 125 mg capsule,delayed 125 mg PO Q8H 05/08/24 05/08/24 History release sprinkle (Depakote Sprinkles) famotidine 20 mg tablet 20 mg PO Q12H 05/08/24 05/08/24 History furosemide 40 mg tablet 40 mg PO DAILY 05/08/24 05/08/24 History metoprolol tartrate 50 mg tablet 50 mg PO Q12H 05/08/24 05/08/24 History potassium chloride 20 mEq/15 mL 20 meq PO DAILY 05/08/24 05/08/24 History oral liquid sertraline 50 mg tablet 50 mg PO Q24H 05/08/24 05/08/24 History tamsulosin 0.4 mg capsule 0.4 mg PO Q24H 05/08/24 05/08/24 History trazodone 50 mg tablet 50 mg PO HS 05/08/24 05/08/24 History vit C 250 mg-vit E 90 mg-zinc 40 1 tablet PO DAILY 05/08/24 05/08/24 History mg-copper 1 [id number] capsule (PreserVision AREDS-2) Allergies Allergy/AdvReac Type Severity Reaction Status Date / Time No Known Allergies Allergy Verified 05/08/24 23:39 Vital Signs Vital Signs - 24 hr 05/08/24 17:17 05/08/24 17:55 05/08/24 18:53 Temperature 99.2 F Pulse Rate 78 77 Respiratory Rate 20 18 Blood Pressure 137/79 163/68 H Pulse Oximetry 96 98 96 Oxygen Delivery Room Air Room Air 05/08/24 19:37 05/08/24 20:52 Temperature Pulse Rate 79 73 Respiratory Rate 16 16 Blood Pressure 138/64 158/62 H Pulse Oximetry 96 97 Oxygen Delivery Exam Narrative: Weight 68.9 kg BMI 21.8 Const: Other: Chronically ill-appearing, frail, elderly, poor hygiene HENMT: Other: Mucous membranes are dry, ears dry food and material adherent to the soft palate, there is thick brown put dental plaques in crusting the teeth Eyes: Other: Pupils are equal and reactive, evidence of bilateral lens replacements noted Neck: Other: No JVD, trachea midline Resp: Other: Coarse breath sounds bilaterally, no increased work of breathing Cardio: Other: Regular rate, regular rhythm GI: Other: Soft, nontender, nondistended, positive bowel sounds : Other: Incontinent of urine with pure wick catheter in place with a small amount of dark yellow urine in the canister Skin: Other: Generalized pallor, non jaundice Neuro: Other: Patient wakes up to staff calling his name but does not follow commands, pupils are equal and reactive, normal muscle tone, assessments limited as patient is unable to participate in neurologic evaluation, he does withdrawal painful stimuli and localizes Extrem: Other: No clubbing, cyanosis or edema Psych: Other: Unable to assess due to the patient's advanced dementia, currently calm H&P: Results Labs Labs: Laboratory Tests 05/08/24 17:49 05/08/24 17:49 05/08/24 05/08/24 05/08/24 17:49 17:59 21:13 WBC 6.2 RBC 3.79 L Hgb 10.7 L Hct 34.6 L MCV 91.3 MCH 28.2 MCHC 30.9 L RDW 13.9 Plt Count 250 MPV 9.5 Immature Gran % (Auto) 0.8 H Neut % (Auto) 53.5 Lymph % (Auto) 29.6 Craig % (Auto) 14.3 H Eos % (Auto) 1.5 Baso % (Auto) 0.3 Lymph # (Auto) 1.82 Craig # (Auto) 0.9 H Eos # (Auto) 0.1 Baso # (Auto) 0.0 Abs Immat Gran (auto) 0.05 H Absolute Neuts (auto) 3.3 Absolute Nucleated RBC 0.000 Nucleated RBC % 0.0 Sodium 156 H Potassium 3.7 Chloride 122 H Carbon Dioxide 25 Anion Gap 9 BUN 38 H Creatinine 1.41 H Estim Creat Clear Calc 34 Estimated GFR 47 L Glucose 98 Calcium 9.8 Total Bilirubin 0.4 AST 30 ALT 24 Alkaline Phosphatase 54 NT-Pro-B Natriuret Pep 1570 H Total Protein 7.0 Albumin 3.4 L Urine Color Yellow Urine Appearance Turbid H Urine pH 6.0 Ur Specific [place] 1.016 Urine Protein 2+ H Urine Glucose (UA) Negative Urine Ketones Trace H Ur Blood (Man) 2+ H Urine Nitrate Positive H Urine Bilirubin Negative Urine Urobilinogen 1.0 Leukocyte Esterase Rfl 3+ H Urine RBC 21-50 H Urine WBC >100 H Ur Squamous Epith Cells None seen Urine Bacteria 4+ H Urine Casts 0-2 Influenza A (RT-PCR) Negative Influenza B (RT-PCR) Negative RSV (RT-PCR) Negative SARS-CoV-2 RNA (RT-PCR) Positive A Impressions Chest X-Ray 05/08/24 18:15 IMPRESSION: No focal infiltrate or effusion. Head CT 05/08/24 23:10 Impression: No acute intracranial hemorrhage or suspicious mass effect. Inflammatory sinus disease, demonstrating progression from prior. EKG: Rate 79 sinus rhythm left axis deviation nonspecific T-wave abnormality QTC 444 All imaging and EKGs personally reviewed and interpreted. And unless stated otherwise agree with radiologic and cardiology interpretation. Assessment and Plan Assessment and plan (1) Failure to thrive: Qualifiers: Failure to thrive age range: in adult Qualified Code(s): R62.7 - Adult failure to thrive Status: Acute (2) Dehydration: Code(s): E86.0 - Dehydration Status: Acute (3) Hypernatremia: Code(s): E87.0 - Hyperosmolality and hypernatremia Status: Acute (4) Dementia: Qualifiers: Dementia behavioral or psychological symptom: unspecified whether behavioral, psychotic, or mood disturbance or anxiety Dementia severity: severe Dementia type: unspecified type Qualified Code(s): F03.C0 - Unspecified dementia, severe, without behavioral disturbance, psychotic disturbance, mood disturbance, and anxiety Code(s): F03.90 - Unspecified dementia, unspecified severity, without behavioral disturbance, psychotic disturbance, mood disturbance, and anxiety Status: Acute (5) UTI (urinary tract infection): Qualifiers: Hematuria presence: with hematuria Urinary tract infection type: acute cystitis Qualified Code(s): N30.01 - Acute cystitis with hematuria Code(s): N39.0 - Urinary tract infection, site not specified Status: Acute (6) Chronic kidney disease: Qualifiers: Chronic kidney disease stage: stage 3 (moderate) Chronic kidney disease stage 3 subtype: unspecified whether 3a or 3b Qualified Code(s): N18.30 - Chronic kidney disease, stage 3 unspecified Code(s): N18.9 - Chronic kidney disease, unspecified Status: Acute (7) Chronic anticoagulation: Code(s): 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 He has subsequent hypernatremia and dehydration. Will place patient on D5 half-normal saline and repeat electrolyte panel in a.m.. Patient does have elevated creatinine suspect that this is likely acute on chronic in nature but no values available for comparison. Will hold any nephrotoxic medications and continue IV fluid hydration. The patient's UA was grossly abnormal in is suggestive of UTI. Patient been started empiric antibiotic therapy. The patient was previously on chronic anticoagulation given the advanced state of his dementia will hold anticoagulation. The ER provider stated that skilled nursing staff had mention hospice. The patient's has not yet made a decision about hospice or palliative care. Will place care coordination consult to provide more information. Is NPO at this time until he can be evaluated by speech therapy. Hopefully with IV fluid hydration patient will be come more alert and we may be able to better assess the patient swallowing function. But unfortunately suspect patient's dementia is likely progressed to the point that these efforts may be futile. The patient had recent COVID. However he is beyond the window for treatment for COVID. He is not requiring any oxygen and is afebrile. He technically should be beyond the window for isolation as of the . Quality VTE Prophylaxis VTE prophylaxis: mechanical ordered (SCDs) Hospitalist MIPS Advance Care Plan I have confirmed that the patient's Advanced Care Plan is present, code status is documented, or surrogate decision maker is listed in patient medical record.: Yes Medication Reconciliation I have utilized all available resources to obtain, update and review the patients current medications (includes all prescriptions, OTC, herbals, cannabis, and nutritional supplements).: Yes
[2024-05-09 00:28] VITALS: PULSE 66
[2024-05-09] MEDS: METOPROLOL TARTRATE 50 MG TAB PO ×2 (00:28→21:01)
[2024-05-09] MEDS: TAMSULOSIN HCL 0.4 MG CAPSULE PO ×2 (00:28→21:01)
[2024-05-09] MEDS: traZODone HCL 50 MG TABLET PO ×2 (00:28→21:01)
[2024-05-09] MEDS: DIVALPROEX SODIUM SPRINKLE 125 MG CAP.DR PO ×3 (05:52→21:01)
[2024-05-09 06:00] VITALS: BP 164/80; PULSE 55; RESP 20; TEMP 37.1; O2SAT 100
[2024-05-09 08:39] LABS: Hematocrit 34.2 % (42.0-52.0); Hemoglobin 10.7 g/dL (14.0-18.0); Mean Corpuscular HGB Conc 31.3 g/dl (32-36); Mean Corpuscular Hemoglobin 29.2 pg (26-34); Mean Corpuscular Volume 93.2 fl (80-100); Mean Platelet Volume 9.6 fl (7.4-10.4); Platelet Count Result 233 k/mm3 (150-375); Red Blood Count 3.67 M/mm3 (4.6-6.20); Red Cell Distribution Width 13.8 % (11.5-14.5); White Blood Count 6.1 K/mm3 (4.5-10.0)
--- NOTE | 2024-05-09 09:04 | P.PNIM_ITS ---
Progress Note: A&P Assessment and Plan (1) Failure to thrive: Qualifiers: Failure to thrive age range: in adult Qualified Code(s): R62.7 - Adult failure to thrive Status: Acute Assessment and Plan: Patient quit eating and drinking, dementia versus COVID versus UTI versus other Seen by a speech therapy recommendations. Pureed Diet The patient's has not yet made a decision about hospice or palliative care. Calorie count ordered Patient may benefit from appetite stimulants (2) Dehydration: Code(s): E86.0 - Dehydration Status: Acute Assessment and Plan: IVF Encourage oral intake (3) Hypernatremia: Code(s): E87.0 - Hyperosmolality and hypernatremia Status: Acute Assessment and Plan: On admission 156, likely due to a severe dehydration LR at 125 Daily BMP (4) Dementia: Qualifiers: Dementia behavioral or psychological symptom: unspecified whether behavioral, psychotic, or mood disturbance or anxiety Dementia severity: severe Dementia type: unspecified type Qualified Code(s): F03.C0 - Unspecified dementia, severe, without behavioral disturbance, psychotic disturbance, mood disturbance, and anxiety Code(s): F03.90 - Unspecified dementia, unspecified severity, without behavioral dist urbance, psychotic disturbance, mood disturbance, and anxiety Status: Acute Assessment and Plan: With acute decline of altered mental status continue IV fluid hydration (5) UTI (urinary tract infection): Qualifiers: Hematuria presence: with hematuria Urinary tract infection type: acute cystitis Qualified Code(s): N30.01 - Acute cystitis with hematuria Code(s): N39.0 - Urinary tract infection, site not specified Status: Acute Assessment and Plan: IV Rocephin (6) Chronic kidney disease: Qualifiers: Chronic kidney disease stage: stage 3 (moderate) Chronic kidney disease stage 3 subtype: unspecified whether 3a or 3b Qualified Code(s): N18.30 - Cell Coverer savage kidney disease, stage 3 unspecified Code(s): N18.9 - Chronic kidney disease, unspecified Status: Acute Assessment and Plan: FRANCIA on CKD hold any nephrotoxic medications continue IV fluid hydration (7) Chronic anticoagulation: Code(s): Z79.01 - care home (current) use of 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 Status: Acute Assessment and Plan: Hold anticoagulation (8) COVID-19: Code(s): U07.1 - COVID-19 Status: Acute Assessment and Plan: he is beyond the window for treatment for COVID He technically should be beyond the window for isolation as of the . Patient could have COVID symptoms such as loss of taste or loss of smell as affecting his appetite, unable to no due to advanced dementia Time Spent With Patient Time: Includes review of chart, time spent family, consulting teams and nursing. Vital signs were reviewed and they are stable. His medications will be reviewed and resumed as appropriate. Findings and treatment plan were discussed with the . Questions were solicited and answered to satisfaction. Care plan was discussed with nursing. Time with patient: Greater than 35 minutes Subjective Date/time seen: 05/09/24 09:04 Interval history: 89-year-old male with a past medical history of relatively the advanced dementia, glaucoma, GERD, essential hypertension, BPH and chronic anticoagulation who presented to the ER from [facility] due increased work of breathing and lethargy. is at bedside, she states that the patient has had COVID for about a week, and she has not seen him in a couple weeks she is usually there during feeding the times. She states that recently he started needing to be spoon feed. Review of Systems Review of Systems: Review of systems unobtainable due to patient's history of dementia. ROS unobtainable: Yes unobtainable due to mental status Exam Narrative: General: well appearing, appears stated age. HEENT: normocephalic, atraumatic. Mucous membranes moist. EOMI, PERRLA, bilateral sclera anicteric, no conjunctival injection. Neck supple without JVD, lymphadenopathy, or bruit. Respiratory: clear to ascultation bilaterally. No rales/rhonic/wheezes. Cardiovascular: Regular rate and rhythm, normal S1-S2 upon ascultation. No murmurs, rubs, or clicks. PMI is nondisplaced, capillary refill less than 3 second. Abdomen: Soft, round, no pulsatile masses, nondistended and nontender. No rebound, no guarding. No CVA tenderness, no hepatosplenomegaly. Bowel sounds present to all four quadrants. No high pitch or tinkling sounds, resonant to pe rcussion. Extremities: No cyanosis, clubbing, or edema present. Pulses are palpable 2/2. Active ROM to all four extremities. Neuro: Alert and orientated x 2. PERRLA. Cranial nerves 2-12 intact without focal deficit. Skin: Warm, dry, and intact, without rash, erythema, or lesion. Psych: pleasant, cooperative, normal speech, normal affect, no hallucinations, no dysarthia Objective Data Vital Signs Vital Signs: Vital Signs - 24 hr 05/08/24 17:17 05/08/24 17:55 05/08/24 18:53 Temperature 99.2 F Pulse Rate 78 77 Respiratory Rate 20 18 Blood Pressure 137/79 163/68 H Pulse Oximetry 96 98 96 Oxygen Delivery Room Air Room Air 05/08/24 19:37 05/08/24 20:52 05/08/24 23:30 Temperature 97.0 F L Pulse Rate 79 73 70 Respiratory Rate 16 16 16 Blood Pressure 138/64 158/62 H 161/61 H Pulse Oximetry 96 97 97 Oxygen Delivery 05/09/24 00:28 05/09/24 01:09 05/09/24 06:00 Temperature 98.8 F Pulse Rate 66 55 L Respiratory Rate 20 Blood Pressure 164/80 H Pulse Oximetry 100 Oxygen Delivery Room Air Intake/Output Intake/Output: Intake & Output 05/06/24 05/07/24 05/08/24 05/09/24 23:59 23:59 23:59 23:59 Intake Total 550 0 Output Total 100 200 Balance 450 -200 Meds/Results Medications: Active Medications Generic Name Dose Route Start Last Admin Trade Name Freq PRN Reason Stop Dose Admin Acetaminophen 1,000 mg 05/09/24 00:05 Acetaminophen 500 Mg Tablet PO Q6H PRN fever or pain 1-3 Aspirin 81 mg 05/09/24 09:00 Aspirin 81 Mg Enteric Tablet PO DAILY DAVID Brimonidine Tartrate 1 drop 05/09/24 09:00 Brimonidine Tartrate 0.2% Op Soln 5 Ml Btl LEFT EYE Q12HR DAVID Buspirone HCl 5 mg 05/09/24 09:00 Buspirone Hcl 5 Mg Tablet PO TID DAVID Divalproex Sodium 125 mg 05/09/24 06:00 05/09/24 05:52 Divalproex Sodium Sprinkle 125 Mg Cap.Dr PO 125 mg Q8HR DAVID Administration Famotidine 20 mg 05/09/24 09:00 Famotidine 20 Mg Tablet PO Q12HR DAVID Dextrose/Sodium Chloride 1,000 mls @ 100 mls/hr 05/08/24 22:15 05/08/24 23:30 Dextrose 5% Sodium Chloride 0.45% IV CONT 100 mls/hr .Q10H DAVID Administration Ceftriaxone Sodium 1 gm in 50 mls @ 100 mls/hr 05/09/24 22:00 Rocephin 1 Gm/Ns 50 Ml IVPB Q24H DAVID Metoprolol Tartrate 50 mg 05/09/24 00:05 05/09/24 00:28 Metoprolol Tartrate 50 Mg Tab PO 50 mg Q12HR DAVID Administration Multivitamins/Minerals 1 tablet 05/09/24 09:00 Opti-Gen Tab PO QAM DAVID Sertraline HCl 50 mg 05/09/24 09:00 Sertraline Hcl 50 Mg Tablet PO DAILY DAVID Tamsulosin HCl 0.4 mg 05/09/24 00:05 05/09/24 00:28 Tamsulosin Hcl 0.4 Mg Capsule PO 0.4 mg HS [facility] Administration Timolol Maleate 1 drop 05/09/24 09:00 Timolol Maleate 0.5% Op Soln 5 Ml Bottle LEFT EYE Q12HR DAVID Trazodone HCl 50 mg 05/09/24 00:15 05/09/24 00:28 Trazodone Hcl 50 Mg Tablet PO 50 mg HS DAVID Administration Radiology Results: ITS Impressions Chest X-Ray 05/08/24 18:15 IMPRESSION: No focal infiltrate or effusion. Head CT 05/08/24 23:10 Impression: No acute intracranial hemorrhage or suspicious mass effect. Inflammatory sinus disease, demonstrating progression from prior. Labs Labs: Laboratory Results - last 24 hr 05/08/24 05/08/24 05/08/24 17:49 17:59 21:13 WBC 6.2 RBC 3.79 L Hgb 10.7 L Hct 34.6 L MCV 91.3 MCH 28.2 MCHC 30.9 L RDW 13.9 Plt Count 250 MPV 9.5 Immature Gran % (Auto) 0.8 H Neut % (Auto) 53.5 Lymph % (Auto) 29.6 Thayer % (Auto) 14.3 H Eos % (Auto) 1.5 Baso % (Auto) 0.3 Lymph # (Auto) 1.82 [place]ayer # (Auto) 0.9 H Eos # (Auto) 0.1 Baso # (Auto) 0.0 Abs Immat Gran (auto) 0.05 H Absolute Neuts (auto) 3.3 Absolute Nucleated RBC 0.000 Nucleated RBC % 0.0 Sodium 156 H Potassium 3.7 Chloride 122 H Carbon Dioxide 25 Anion Gap 9 BUN 38 H Creatinine 1.41 H Estim Creat Clear Calc 34 Estimated GFR 47 L Glucose 98 Calcium 9.8 Total Bilirubin 0.4 AST 30 ALT 24 Alkaline Phosphatase 54 NT-Pro-B Natriuret Pep 1570 H Total Protein 7.0 Albumin 3.4 L Urine Color Yellow Urine Appearance Turbid H Urine pH 6.0 Ur Specific [place] 1.016 Urine Protein 2+ H Urine Glucose (UA) Negative Urine Ketones Trace H Ur Blood (Man) 2+ H Urine Nitrate Positive H Urine Bilirubin Negative Urine Urobilinogen 1.0 Leukocyte Esterase Rfl 3+ H Urine RBC 21-50 H Urine WBC >100 H Ur Squamous Epith Cells None seen Urine Bacteria 4+ H Urine Casts 0-2 Influenza A (RT-PCR) Negative Influenza B (RT-PCR) Negative RSV (RT-PCR) Negative SARS-CoV-2 RNA (RT-PCR) Positive A 05/09/24 08:17 WBC 6.1 RBC 3.67 L Hgb 10.7 L Hct 34.2 L MCV 93.2 MCH 29.2 MCHC 31.3 L RDW 13.8 Plt Count 233 MPV 9.6 Immature Gran % (Auto) Neut % (Auto) Lymph % (Auto) [place]ayer % (Auto) Eos % (Auto) Baso % (Auto) Lymph # (Auto) [place]ayer # (Auto) Eos # (Auto) Baso # (Auto) Abs Immat Gran (auto) Absolute Neuts (auto) Absolute Nucleated RBC Nucleated RBC % Sodium Potassium Chloride Carbon Dioxide Anion Gap BUN Creatinine Estim Creat Clear Calc Estimated GFR Glucose Calcium Total Bilirubin AST ALT Alkaline Phosphatase NT-Pro-B Natriuret Pep Total Protein Albumin Urine Color Urine Appearance Urine pH Ur Specific [place] Urine Protein Urine Glucose (UA) Urine Ketones Ur Blood (Man) Urine Nitrate Urine Bilirubin Urine Urobilinogen Leukocyte Esterase Rfl Urine RBC Urine WBC Ur Squamous Epith Cells Urine Bacteria Urine Casts Influenza A (RT-PCR) Influenza B (RT-PCR) RSV (RT-PCR) SARS-CoV-2 RNA (RT-PCR) Quality VTE Prophylaxis VTE prophylaxis: mechanical ordered (SCDs) Hospitalist MIPS Medication Reconciliation I have utilized all available resources to obtain, update and review the patients current medications (includes all prescriptions, OTC, herbals, cannabis, and nutritional supplements).: Yes
[2024-05-09 10:21] LABS: Anion Gap 8 mmol/L (4-12); Blood Urea Nitrogen 38 mg/dL (9-20); Calcium 9.6 mg/dL (8.4-10.2); Carbon Dioxide 27 mmol/L (22-30); Chloride 122 mmol/L (98-107); Estimated CRCL calculation 34 ml/min; Estimated Glomerular Filt Rate 51; Glucose 125 mg/dL (65-110); Potassium 3.5 mmol/L (3.4-5.0); Sodium 157 mmol/L (137-145)
[2024-05-09 12:03] VITALS: BMI 21.7
[2024-05-09] MEDS: LACTATED RINGERS 1,000 ML 125 ML IV CONT ×2 (12:12→22:58)
[2024-05-09] MEDS: TIMOLOL MALEATE 0.5% OP SOLN 5 ML BOTTLE 1 DROP LEFT EYE ×2 (12:14→21:02)
[2024-05-09] MEDS: BRIMONIDINE TARTRATE 0.2% OP SOLN 5 ML BTL 1 DROP LEFT EYE ×2 (12:14→21:03)
--- NOTE | 2024-05-09 13:50 | PCSTNOTE ---
Please refer to the Bedside Swallow Evaluation in the EMR. Please note, silent aspiration cannot be ruled out at bedside.
[2024-05-09 14:00] VITALS: BP 172/54; PULSE 52; RESP 16; TEMP 36.2; O2SAT 98
--- NOTE | 2024-05-09 16:55 | PC.NURSE ---
Patient was Covid positive at facility on 05/04/2024.
[2024-05-09] MEDS: guaiFENesin/DEXTROMETHORPHAN 10 ML UDC PO ×2 (18:07→21:24)
[2024-05-09] MEDS: busPIRone HCL 5 MG TABLET PO (18:07)
[2024-05-09 21:01] VITALS: PULSE 78
[2024-05-09] MEDS: FAMOTIDINE 20 MG TABLET PO (21:01)
[2024-05-09 21:26] VITALS: BP 170/71; PULSE 66; RESP 18; TEMP 37.1; O2SAT 95
[2024-05-10] MEDS: guaiFENesin/DEXTROMETHORPHAN 10 ML UDC PO ×4 (05:03→21:23)
[2024-05-10] MEDS: DIVALPROEX SODIUM SPRINKLE 125 MG CAP.DR PO ×3 (05:04→21:27)
[2024-05-10 05:18] VITALS: BP 177/60; PULSE 50; RESP 18; TEMP 36.6; O2SAT 93
--- NOTE | 2024-05-10 08:24 | P.CDI_ITS ---
CDI Query Clarification Request BMI: 21.8 Nutritional Diagnostic Statement: Please refer to the comprehensive nutrition assessment for further information. If you agree with diagnosis of Severe protein calorie malnutrition related to chronic loss of appetite, dementia as evidenced by weight loss 15%/3 months; intakes <75% needs >1 month. Please specify severity if known: * Mild * Moderate * Severe * Other/Unknown <Gina Samuels RN - Last Filed: 05/10/24 08:25> Clarified Diagnosis Clarified Diagnosis: Severe <Camila Morgan APRN - Last Filed: 05/10/24 16:31>
--- NOTE | 2024-05-10 08:41 | P.PNIM_ITS ---
Progress Note: A&P Assessment and Plan (1) Failure to thrive: Qualifiers: Failure to thrive age range: in adult Qualified Code(s): R62.7 - Adult failure to thrive Status: Acute Assessment and Plan: Patient quit eating and drinking, dementia versus COVID versus UTI versus other Seen by a speech therapy recommendations. Pureed Diet The patient's has not yet made a decision about hospice or palliative care. Calorie count ordered-patient is now some, will add Ensure shakes Patient may benefit from appetite stimulants (2) Dehydration: Code(s): E86.0 - Dehydration Status: Acute Assessment and Plan: IVF Encourage oral intake (3) Hypernatremia: Code(s): E87.0 - Hyperosmolality and hypernatremia Status: Acute Assessment and Plan: slowly improving, On admission 156, likely due to a severe dehydration LR at 125 Daily BMP (4) Dementia: Qualifiers: Dementia behavioral or psychological symptom: unspecified whether behavioral, psychotic, or mood disturbance or anxiety Dementia severity: severe Dementia type: unspecified type Qualified Code(s): F03.C0 - Unspecified dementia, severe, without behavioral disturbance, psychotic disturbance, mood disturbance, and anxiety Code(s): F03.90 - Unspecified dementia, unspecified severity, without behavioral disturbance, psychotic disturbance, mood disturbance, and anxiety Status: Acute Assessment and Plan: With acute decline of altered mental status, could be related to dementia versus COVID infection continue IV fluid hydration (5) UTI (urinary tract infection): Qualifiers: Hematuria presence: with hematuria Urinary tract infection type: acute cystitis Qualified Code(s): N30.01 - Acute cystitis with hematuria Code(s): N39.0 - Urinary tract infection, site not specified Status: Acute Assessment and Plan: IV Rocephin Transition to p.o. Keflex (6) Chronic kidney disease: Qualifiers: Chronic kidney disease stage: stage 3 (moderate) Chronic kidney disease stage 3 subtype: unspecified whether 3a or 3b Qualified Code(s): N18.30 - Chronic kidney disease, stage 3 unspecified Code(s): N18.9 - Chronic kidney disease, unspecified Status: Acute Assessment and Plan: Improving FRANCIA on CKD hold any nephrotoxic medications continue IV fluid hydration, likely able to stop IV fluids tomorrow (7) Chronic anticoagulation: Code(s): Z79.01 - longterm (current) use of 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 Status: Acute Assessment and Plan: Hold anticoagulation due to advanced dementia, and high fall risk (8) COVID-19: Code(s): U07.1 - COVID-19 Status: Acute Assessment and Plan: he is beyond the window for treatment for COVID He technically should be beyond the window for isolation as of the . Patient could have COVID symptoms such as loss of taste or loss of smell as affecting his appetite, unable to know due to advanced dementia Time Spent With Patient Time with patient: Greater than 35 minutes Subjective Date/time seen: 05/10/24 08:41 Interval history: 89-year-old male with a past medical history of relatively the advanced dementia, glaucoma, GERD, essential hypertension, BPH and chronic anticoagulation who presented to the ER from [facility] due increased work of breathing and lethargy. Patient is taking in food and water however he still feeder. Review of Systems Review of Systems: Review of systems unobtainable due to patient's history of dementia. ROS unobtainable: Yes unobtainable due to mental status Exam Narrative: General: well appearing, appears stated age. Extremely hard of hearing HEENT: normocephalic, atraumatic. Mucous membranes moist. EOMI, PERRLA, bilateral sclera anicteric, no conjunctival injection. Neck supple without JVD, lymphadenopathy, or bruit. Respiratory: clear to ascultation bilaterally. No rales/rhonic/wheezes. Cardiovascular: Regular rate and rhythm, normal S1-S2 upon ascultation. No murmurs, rubs, or clicks. PMI is nondisplaced, capillary refill less than 3 second. Abdomen: Soft, round, no pulsatile masses, nondistended and nontender. No rebound, no guarding. No CVA tenderness, no hepatosplenomegaly. Bowel sounds present to all four quadrants. No high pitch or tinkling sounds, resonant to percussion. Extremities: No cyanosis, clubbing, or edema present. Pulses are palpable 2/2. Active ROM to all four extremities. Neuro: Alert and orientated x 2. PERRLA. Cranial nerves 2-12 intact without focal deficit. Skin: Warm, dry, and intact, without rash, erythema, or lesion. Psych: pleasant, cooperative, normal speech, normal affect, no hallucinations, no dysarthia Objective Data Vital Signs Vital Signs: Vital Signs - 24 hr 05/09/24 12:12 05/09/24 14:00 05/09/24 21:01 Temperature 97.2 F L Pulse Rate 52 L 78 Respiratory Rate 16 Blood Pressure 172/54 H Pulse Oximetry 98 Oxygen Delivery Room Air 05/09/24 21:26 05/10/24 05:18 Temperature 98.8 F 97.9 F Pulse Rate 66 50 L Respiratory Rate 18 18 Blood Pressure 170/71 H 177/60 H Pulse Oximetry 95 93 Oxygen Delivery Intake/Output Intake/Output: Intake & Output 05/07/24 05/08/24 05/09/24 05/10/24 23:59 23:59 23:59 23:59 Intake Total 550 1110 200 Output Total 100 650 350 Balance 450 460 -150 Meds/Results Medications: Active Medications Generic Name Dose Route Start Last Admin Trade Name Freq PRN Reason Stop Dose Admin Acetaminophen 1,000 mg 05/09/24 00:05 Acetaminophen 500 Mg Tablet PO Q6H PRN fever or pain 1-3 Aspirin 81 mg 05/09/24 09:00 05/09/24 09:00 Aspirin 81 Mg Enteric Tablet PO Not Given DAILY DAVID Brimonidine Tartrate 1 drop 05/09/24 09:00 05/09/24 21:03 Brimonidine Tartrate 0.2% Op Soln 5 Ml Btl LEFT EYE 1 drop Q12HR DAVID Administration Buspirone HCl 5 mg 05/09/24 09:00 05/09/24 18:07 Buspirone Hcl 5 Mg Tablet PO 5 mg TID DAVID Administration Divalproex Sodium 125 mg 05/09/24 06:00 05/10/24 05:04 Divalproex Sodium Sprinkle 125 Mg Cap.Dr PO 125 mg Q8HR DAVID Administration Famotidine 20 mg 05/09/24 09:00 05/09/24 21:01 Famotidine 20 Mg Tablet PO 20 mg Q12HR DAVID Administration Guaifenesin/Dextromethorphan 10 ml 05/09/24 16:15 05/10/24 05:03 Guaifenesin/Dextromethorphan 10 Ml Udc PO 10 ml Q4HR DAVID Administration Ceftriaxone Sodium 1 gm in 50 mls @ 100 mls/hr 05/09/24 22:00 05/09/24 21:36 Rocephin 1 Gm/Ns 50 Ml IVPB Infused Q24H DAVID Infusion Lactated Ringer's 1,000 mls @ 125 mls/hr 05/09/24 10:45 05/09/24 22:58 Lr - Lactated Ringers Iv IV CONT 125 mls/hr .Q8H DAVID Administration Metoprolol Tartrate 50 mg 05/09/24 00:05 05/09/24 21:01 Metoprolol Tartrate 50 Mg Tab PO 50 mg Q12HR DAVID Administration Multivitamins/Minerals 1 tablet 05/09/24 09:00 05/09/24 09:00 Opti-Gen Tab PO Not Given QAM DAVID Sertraline HCl 50 mg 05/09/24 09:00 05/09/24 09:00 Sertraline Hcl 50 Mg Tablet PO Not Given DAILY DAVID Tamsulosin HCl 0.4 mg 05/09/24 00:05 05/09/24 21:01 Tamsulosin Hcl 0.4 Mg Capsule PO 0.4 mg HS DAVID Administration Timolol Maleate 1 drop 05/09/24 09:00 05/09/24 21:02 Timolol Maleate 0.5% Op Soln 5 Ml Bottle LEFT EYE 1 drop Q12HR DAVID Administration Trazodone HCl 50 mg 05/09/24 00:15 05/09/24 21:01 Trazodone Hcl 50 Mg Tablet PO 50 mg HS DAVID Administration Radiology Results: ITS Impressions Chest X-Ray 05/08/24 18:15 IMPRESSION: No focal infiltrate or effusion. Head CT 05/08/24 23:10 Impression: No acute intracranial hemorrhage or suspicious mass effect. Inflammatory sinus disease, demonstrating progression from prior. Labs Labs: Laboratory Results - last 24 hr 05/09/24 08:17 WBC 6.1 RBC 3.67 L Hgb 10.7 L Hct 34.2 L MCV 93.2 MCH 29.2 MCHC 31.3 L RDW 13.8 Plt Count 233 MPV 9.6 Sodium 157 H Potassium 3.5 Chloride 122 H Carbon Dioxide 27 Anion Gap 8 BUN 38 H Creatinine 1.33 H Estim Creat Clear Calc 34 Estimated GFR 51 L Glucose 125 H Calcium 9.6 Quality VTE Prophylaxis VTE prophylaxis: mechanical ordered (SCDs) Hospitalist MIPS Advance Care Plan I have confirmed that the patient's Advanced Care Plan is present, code status is documented, or surrogate decision maker is listed in patient medical record.: Yes Medication Reconciliation I have utilized all available resources to obtain, update and review the patients current medications (includes all prescriptions, OTC, herbals, cannabis, and nutritional supplements).: Yes
[2024-05-10] MEDS: LACTATED RINGERS 1,000 ML 125 ML IV CONT ×2 (11:27→21:20)
[2024-05-10 11:28] LABS: Hematocrit 36.7 % (42.0-52.0); Hemoglobin 11.2 g/dL (14.0-18.0); Mean Corpuscular HGB Conc 30.5 g/dl (32-36); Mean Corpuscular Hemoglobin 28.4 pg (26-34); Mean Corpuscular Volume 92.9 fl (80-100); Mean Platelet Volume 9.7 fl (7.4-10.4); Platelet Count Result 251 k/mm3 (150-375); Red Blood Count 3.95 M/mm3 (4.6-6.20); Red Cell Distribution Width 13.8 % (11.5-14.5)
[2024-05-10] MEDS: ASPIRIN 81 MG ENTERIC TABLET PO (11:28)
[2024-05-10] MEDS: OPTI-GEN TAB 1 TABLET PO (11:28)
[2024-05-10] MEDS: busPIRone HCL 5 MG TABLET PO ×2 (11:29→17:52)
[2024-05-10] MEDS: SERTRALINE HCL 50 MG TABLET PO (11:29)
[2024-05-10] MEDS: BRIMONIDINE TARTRATE 0.2% OP SOLN 5 ML BTL 1 DROP LEFT EYE ×2 (11:30→21:22)
[2024-05-10] MEDS: TIMOLOL MALEATE 0.5% OP SOLN 5 ML BOTTLE 1 DROP LEFT EYE ×2 (11:30→21:24)
[2024-05-10 11:31] VITALS: PULSE 54
[2024-05-10] MEDS: METOPROLOL TARTRATE 50 MG TAB PO (11:31)
[2024-05-10] MEDS: FAMOTIDINE 20 MG TABLET PO ×2 (11:32→21:23)
[2024-05-10 11:46] LABS: Anion Gap 6 mmol/L (4-12); Blood Urea Nitrogen 33 mg/dL (9-20); Calcium 9.4 mg/dL (8.4-10.2); Carbon Dioxide 26 mmol/L (22-30); Chloride 121 mmol/L (98-107); Estimated CRCL calculation 38 ml/min; Estimated Glomerular Filt Rate 59; Glucose 95 mg/dL (65-110); Potassium 3.7 mmol/L (3.4-5.0); Sodium 153 mmol/L (137-145)
[2024-05-10 14:00] VITALS: BP 139/56; PULSE 54; RESP 16; TEMP 36.1; O2SAT 97
[2024-05-10] MEDS: CEPHALEXIN 500 MG CAPSULE PO (21:23)
[2024-05-10] MEDS: TAMSULOSIN HCL 0.4 MG CAPSULE PO (21:24)
[2024-05-10] MEDS: traZODone HCL 50 MG TABLET PO (21:24)
[2024-05-10 21:27] VITALS: PULSE 48; O2SAT 96
[2024-05-10 21:33] VITALS: BP 170/65; PULSE 51; RESP 18; TEMP 36.5; O2SAT 96
[2024-05-11] MEDS: guaiFENesin/DEXTROMETHORPHAN 10 ML UDC PO ×6 (00:43→21:40)
--- NOTE | 2024-05-11 05:23 | PC.NURSE ---
05/10/24 @2100-=Patient pulse was 47 bpm, blood pressure Metoprolol held. Patient stable, will continue to monitor vital signs. Luz Marina Noe notified and aware.
[2024-05-11 05:30] VITALS: BP 175/69; PULSE 50; RESP 18; TEMP 36.6; O2SAT 96
[2024-05-11] MEDS: LACTATED RINGERS 1,000 ML 125 ML IV CONT (05:41)
[2024-05-11] MEDS: DIVALPROEX SODIUM SPRINKLE 125 MG CAP.DR PO ×3 (05:42→22:01)
[2024-05-11 06:11] LABS: Hematocrit 34.8 % (42.0-52.0); Hemoglobin 10.3 g/dL (14.0-18.0); Mean Corpuscular HGB Conc 29.6 g/dl (32-36); Mean Corpuscular Hemoglobin 28.4 pg (26-34); Mean Corpuscular Volume 95.9 fl (80-100); Mean Platelet Volume 9.9 fl (7.4-10.4); Platelet Count Result 219 k/mm3 (150-375); Red Blood Count 3.63 M/mm3 (4.6-6.20); Red Cell Distribution Width 13.7 % (11.5-14.5); White Blood Count 6.2 K/mm3 (4.5-10.0)
[2024-05-11 06:24] LABS: Anion Gap 7 mmol/L (4-12); Blood Urea Nitrogen 34 mg/dL (9-20); Calcium 9.3 mg/dL (8.4-10.2); Carbon Dioxide 25 mmol/L (22-30); Chloride 119 mmol/L (98-107); Estimated CRCL calculation 42 ml/min; Estimated Glomerular Filt Rate > 60; Glucose 90 mg/dL (65-110); Potassium 3.9 mmol/L (3.4-5.0); Sodium 151 mmol/L (137-145)
[2024-05-11] MEDS: busPIRone HCL 5 MG TABLET PO ×3 (09:05→16:38)
[2024-05-11] MEDS: CEPHALEXIN 500 MG CAPSULE PO ×2 (09:05→21:40)
[2024-05-11] MEDS: ASPIRIN 81 MG ENTERIC TABLET PO (09:05)
[2024-05-11] MEDS: SERTRALINE HCL 50 MG TABLET PO (09:07)
[2024-05-11] MEDS: FAMOTIDINE 20 MG TABLET PO ×2 (09:07→21:40)
[2024-05-11] MEDS: OPTI-GEN TAB 1 TABLET PO (09:07)
[2024-05-11] MEDS: ENOXAPARIN 40 MG/0.4 ML SYRINGE SUB-Q (09:07)
[2024-05-11] MEDS: BRIMONIDINE TARTRATE 0.2% OP SOLN 5 ML BTL 1 DROP LEFT EYE ×2 (09:08→21:40)
[2024-05-11] MEDS: TIMOLOL MALEATE 0.5% OP SOLN 5 ML BOTTLE 1 DROP LEFT EYE ×2 (09:08→21:41)
[2024-05-11 09:25] VITALS: PULSE 56
[2024-05-11] MEDS: METOPROLOL TARTRATE 50 MG TAB PO (09:25)
--- NOTE | 2024-05-11 11:43 | P.PNIM_ITS ---
Progress Note: A&P Assessment and Plan (1) Essential hypertension: Code(s): I10 - Essential (primary) hypertension Status: Acute (2) Atrial fibrillation: Code(s): I48.91 - Unspecified atrial fibrillation Status: Acute (3) Chronic anticoagulation: Code(s): Z79.01 - custodial (current) use of 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 Status: Acute (4) Failure to thrive: Qualifiers: Failure to thrive age range: in adult Qualified Code(s): R62.7 - Adult failure to thrive Status: Acute (5) Severe protein-calorie malnutrition: Code(s): E43 - Unspecified severe protein-calorie malnutrition Status: Acute (6) Dysphagia: Qualifiers: Dysphagia type: unspecified Qualified Code(s): R13.10 - Dysphagia, unspecified Code(s): R13.10 - Dysphagia, unspecified Status: Acute (7) Abnormal CT scan, pelvis: Code(s): R93.5 - Abnormal findings on diagnostic imaging of other abdominal regions, including retroperitoneum Status: Acute Plan Failure to thrive: Qualifiers: Failure to thrive age range: in adult Qualified Code(s): R62.7 - Adult failure to thrive Status: Acute Assessment and Plan: Patient quit eating and drinking, dementia versus COVID versus UTI versus other Seen by a speech therapy recommendations. Pureed Diet The patient's has not yet made a decision about hospice or palliative care. Calorie count ordered-patient is now some, will add Ensure shakes Consult dietitian FRANCIA on CKD, hypernatremia, dehydration Qualifiers: Chronic kidney disease stage: stage 3 (moderate) Chronic kidney disease stage 3 subtype: unspecified whether 3a or 3b Qualified Code(s): N18.30 - Chronic kidney disease, stage 3 unspecified Code(s): N18.9 - Chronic kidney disease, unspecified Status: Acute Assessment and Plan: Creatinine 1.41 upon arrival, baseline 1.0 January 28, 2024 Sodium 156 upon arrival, chronic trending down 151 cr is down 1.0, sodium still high Switch from lactated Ringer 125 mL/hour to D5 100 mL/hour on 05/11 Dementia: Qualifiers: Dementia behavioral or psychological symptom: unspecified whether behavioral, psychotic, or mood disturbance or anxiety Dementia severity: severe Dementia type: unspecified type Qualified Code(s): F03.C0 - Unspecified dementia, severe, without behavioral disturbance, psychotic disturbance, mood disturbance, and anxiety Code(s): F03.90 - Unspecified dementia, unspecified severity, without behavioral disturbance, psychotic disturbance, mood disturbance, and anxiety Status: Acute Assessment and Plan: Due to multiple factors including dehydration, COVID infection and UTI, Neuro check UTI (urinary tract infection): Qualifiers: Hematuria presence: with hematuria Urinary tract infection type: acute cystitis Qualified Code(s): N30.01 - Acute cystitis with hematuria Code(s): N39.0 - Urinary tract infection, site not specified Status: Acute Assessment and Plan: IV Rocephin Transition to p.o. Keflex Chronic anticoagulation: Code(s): Z79.01 - medical terminologist (current) use of 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 Status: Acute Assessment and Plan: Hold anticoagulation due to advanced dementia, and high fall risk (8) COVID-19: Code(s): U07.1 - COVID-19 Status: Acute Assessment and Plan: beyond the window for treatment for COVID, patient has no respiratory distress, patient on room air No need antiviral medication Subjective Date/time seen: 05/11/24 11:43 Interval history: I saw and examined the patient in presents of patient's . Patient is alert, not oriented x3, able to follow commands, but unable to provide history. Patient does not have obvious distress. Patient afebrile blood pressure stable, patient has bradycardia Exam Narrative: GENERAL: in no acute distress. Well-nourished. - EYES: EOMI. Anicteric. - HENT: Moist mucous membranes. - LUNGS: Clear to auscultation bilateral ly, no wheezing, rhonchi, or rales. - CARDIOVASCULAR: Regular rate and rhyth m. No murmur. No JVD. - ABDOMEN: Soft, non-tender and non-dist ended. No palpable masses. - EXTREMITIES: No edema. Peripheral puls es 2+. Non-tender. - NEUROLOGIC: Able to moving all extrem ities, - PSYCHIATRIC: Awake, Alert and not orie nted x 3. Appropriate mood and affect. - SKIN: No rashes or lesions. Warm. - LYMPH: No cervical lymphadenopathy. Objective Data Vital Signs Vital Signs: Vital Signs - 24 hr 05/10/24 14:00 05/10/24 21:27 05/10/24 21:27 Temperature 96.9 F L Pulse Rate 54 L 48 L Respiratory Rate 16 Blood Pressure 139/56 L Pulse Oximetry 97 96 Oxygen Delivery Room Air 05/10/24 21:33 05/11/24 05:30 05/11/24 09:25 Temperature 97.7 F 97.9 F Pulse Rate 51 L 50 L 56 L Respiratory Rate 18 18 Blood Pressure 170/65 H 175/69 H Pulse Oximetry 96 96 Oxygen Delivery Intake/Output Intake/Output: Intake & Output 05/08/24 05/09/24 05/10/24 05/11/24 23:59 23:59 23:59 23:59 Intake Total 550 1110 2500 1420 Output Total 100 650 800 650 Balance 474 424 4626 770 Meds/Results Medications: Active Medications Generic Name Dose Route Start Last Admin Trade Name Freq PRN Reason Stop Dose Admin Acetaminophen 1,000 mg 05/09/24 00:05 Acetaminophen 500 Mg Tablet PO Q6H PRN fever or pain 1-3 Aspirin 81 mg 05/09/24 09:00 05/11/24 09:05 Aspirin 81 Mg Enteric Tablet PO 81 mg DAILY DAVID Administration Brimonidine Tartrate 1 drop 05/09/24 09:00 05/11/24 09:08 Brimonidine Tartrate 0.2% Op Soln 5 Ml Btl LEFT EYE 1 drop Q12HR DAVID Administration Buspirone HCl 5 mg 05/09/24 09:00 05/11/24 09:05 Buspirone Hcl 5 Mg Tablet PO 5 mg TID DAVID Administration Cephalexin HCl 500 mg 05/10/24 21:00 05/11/24 09:05 Cephalexin 500 Mg Capsule PO 05/15/24 09:01 500 mg Q12HR DAVID Administration Divalproex Sodium 125 mg 05/09/24 06:00 05/11/24 05:42 Divalproex Sodium Sprinkle 125 Mg Cap.Dr PO 125 mg Q8HR DAVID Administration Enoxaparin Sodium 40 mg 05/11/24 09:00 05/11/24 09:07 Enoxaparin 40 Mg/0.4 Ml Syringe SUB-Q 40 mg DAILY DAVID Administration Famotidine 20 mg 05/09/24 09:00 05/11/24 09:07 Famotidine 20 Mg Tablet PO 20 mg Q12HR DAVID Administration Guaifenesin/Dextromethorphan 10 ml 05/09/24 16:15 05/11/24 09:07 Guaifenesin/Dextromethorphan 10 Ml Udc PO 10 ml Q4HR DAVID Administration Lactated Ringer's 1,000 mls @ 125 mls/hr 05/09/24 10:45 05/11/24 05:41 Lr - Lactated Ringers Iv IV CONT 125 mls/hr .Q8H DAVID Administration Metoprolol Tartrate 50 mg 05/09/24 00:05 05/11/24 09:25 Metoprolol Tartrate 50 Mg Tab PO 50 mg Q12HR DAVID Administration Multivitamins/Minerals 1 tablet 05/09/24 09:00 05/11/24 09:07 Opti-Gen Tab PO 1 tablet QAM DAVID Administration Sertraline HCl 50 mg 05/09/24 09:00 05/11/24 09:07 Sertraline Hcl 50 Mg Tablet PO 50 mg DAILY DAVID Administration Tamsulosin HCl 0.4 mg 05/09/24 00:05 05/10/24 21:24 Tamsulosin Hcl 0.4 Mg Capsule PO 0.4 mg HS DAVID Administration Timolol Maleate 1 drop 05/09/24 09:00 05/11/24 09:08 Timolol Maleate 0.5% Op Soln 5 Ml Bottle LEFT EYE 1 drop Q12HR DAVID Administration Trazodone HCl 50 mg 05/09/24 00:15 05/10/24 21:24 Trazodone Hcl 50 Mg Tablet PO 50 mg HS DAVID Administration Radiology Results: ITS Impressions Chest X-Ray 05/08/24 18:15 IMPRESSION: No focal infiltrate or effusion. Head CT 05/08/24 23:10 Impression: No acute intracranial hemorrhage or suspicious mass effect. Inflammatory sinus disease, demonstrating progression from prior. Labs Labs: Laboratory Results - last 24 hr 05/10/24 05/11/24 11:12 05:25 WBC 6.2 RBC 3.63 L Hgb 10.3 L Hct 34.8 L MCV 95.9 MCH 28.4 MCHC 29.6 L RDW 13.7 Plt Count 219 MPV 9.9 Sodium 153 H 151 H Potassium 3.7 3.9 Chloride 121 H 119 H Carbon Dioxide 26 25 Anion Gap 6 7 BUN 33 H 34 H Creatinine 1.17 1.05 Estim Creat Clear Calc 38 42 Estimated GFR 59 > 60 Glucose 95 90 Calcium 9.4 9.3
[2024-05-11] MEDS: DEXTROSE 5% 1,000 ML 1,000 ML 100 ML IV CONT ×2 (12:33→22:58)
[2024-05-11 14:00] VITALS: BP 148/61; PULSE 47; RESP 17; TEMP 36.8; O2SAT 100
[2024-05-11] MEDS: TAMSULOSIN HCL 0.4 MG CAPSULE PO (21:41)
[2024-05-11] MEDS: traZODone HCL 50 MG TABLET PO (21:41)
[2024-05-11 21:44] VITALS: PULSE 46
[2024-05-11 21:49] VITALS: BP 166/73; PULSE 76; RESP 14; TEMP 36.6; O2SAT 90
[2024-05-12] MEDS: guaiFENesin/DEXTROMETHORPHAN 10 ML UDC PO ×6 (01:18→20:27)
[2024-05-12] MEDS: DIVALPROEX SODIUM SPRINKLE 125 MG CAP.DR PO ×3 (05:17→21:13)
[2024-05-12 05:31] VITALS: BP 141/57; PULSE 43; RESP 16; TEMP 36.1; O2SAT 98
[2024-05-12] MEDS: DEXTROSE 5% 1,000 ML 1,000 ML 100 ML IV CONT ×2 (08:51→17:21)
[2024-05-12] MEDS: ASPIRIN 81 MG ENTERIC TABLET PO (08:56)
[2024-05-12] MEDS: CEPHALEXIN 500 MG CAPSULE PO (08:57)
[2024-05-12] MEDS: OPTI-GEN TAB 1 TABLET PO (08:57)
[2024-05-12 08:58] VITALS: PULSE 60
[2024-05-12] MEDS: METOPROLOL TARTRATE 50 MG TAB PO ×2 (08:58→20:29)
[2024-05-12] MEDS: busPIRone HCL 5 MG TABLET PO ×3 (09:00→17:20)
[2024-05-12] MEDS: SERTRALINE HCL 50 MG TABLET PO (09:00)
[2024-05-12] MEDS: ENOXAPARIN 40 MG/0.4 ML SYRINGE SUB-Q (09:01)
[2024-05-12] MEDS: BRIMONIDINE TARTRATE 0.2% OP SOLN 5 ML BTL 1 DROP LEFT EYE ×2 (09:25→20:29)
[2024-05-12] MEDS: TIMOLOL MALEATE 0.5% OP SOLN 5 ML BOTTLE 1 DROP LEFT EYE ×2 (09:26→20:29)
[2024-05-12] MEDS: FAMOTIDINE 20 MG TABLET PO ×2 (11:27→20:26)
--- NOTE | 2024-05-12 11:59 | P.PNIM_ITS ---
Progress Note: A&P Assessment and Plan (1) Hypernatremia: Code(s): E87.0 - Hyperosmolality and hypernatremia Status: Acute Assessment and Plan: * 05/11 Na151 * 05/12 f/u lab ordered (2) FRANCIA (acute kidney injury): Code(s): N17.9 - Acute kidney failure, unspecified Status: Acute Assessment and Plan: * Resolved (3) Essential hypertension: Code(s): I10 - Essential (primary) hypertension Status: Acute Assessment and Plan: * Controlled (4) Atrial fibrillation: Code(s): I48.91 - Unspecified atrial fibrillation Status: Acute Assessment and Plan: * Stable (5) Chronic anticoagulation: Code(s): Z79.01 - watermaster (current) use of 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 Status: Acute Assessment and Plan: * Eliquis on hold * ASA 81 mg daily (6) Severe protein-calorie malnutrition: Code(s): E43 - Unspecified severe protein-calorie malnutrition Status: Acute Assessment and Plan: * Encourage PO intake (7) Dysphagia: Qualifiers: Dysphagia type: unspecified Qualified Code(s): R13.10 - Dysphagia, unspecified Code(s): R13.10 - Dysphagia, unspecified Status: Acute Assessment and Plan: * Spouse considering hospice pending his hospital course (8) COVID-19: Code(s): U07.1 - COVID-19 Status: Acute Assessment and Plan: * On r/a, past window of therapy, no intervention required (9) Vascular dementia: Qualifiers: Dementia severity: severe Dementia behavioral or psychological symptom: unspecified whether behavioral, psychotic, or mood disturbance or anxiety Qualified Code(s): F01.C0 - Vascular dementia, severe, without behavioral disturbance, psychotic disturbance, mood disturbance, and anxiety Code(s): F01.50 - Vascular dementia, unspecified severity, without behavioral distu rbance, psychotic disturbance, mood disturbance, and anxiety Status: Acute Assessment and Plan: * Chronic Subjective Date/time seen: 05/12/24 11:59 Interval history: Nonverbal. Oral intake charted as 710 mL in last 24 hrs. Review of Systems Review of Systems: ROS unobtainable: Yes unobtainable due to medical condition Exam Narrative: HEENT: PERRL, sclerae nonicteric, pharyngeal mucosa pink and intact NECK: No JVD, adenopathy, or thyromegaly CHEST: Clear to auscultation. Normal effort. HEART: NL S1/S2, regular, no murmur ABDOMEN: BS+, soft, nontender, no mass, no bruits EXTREMITIES: No cyanosis, edema, or clubbing NEUROLOGIC: CN intact and symmetric to inspection. MUSCULOSKELETAL: No gross deformity to visual inspection. PSYCH: Alert. Nonverbal. Makes eye contact and smiles but does not follow commands. Objective Data Vital Signs Vital Signs: Vital Signs - 24 hr 05/11/24 14:00 05/11/24 21:40 05/11/24 21:44 Temperature 98.2 F Pulse Rate 47 L 46 L Respiratory Rate 17 Blood Pressure 148/61 H Pulse Oximetry 100 Oxygen Delivery Room Air 05/11/24 21:49 05/12/24 05:31 05/12/24 08:58 Temperature 97.8 F 96.9 F L Pulse Rate 76 43 L 60 Respiratory Rate 14 16 Blood Pressure 166/73 H 141/57 H Pulse Oximetry 90 98 Oxygen Delivery Intake/Output Intake/Output: Intake & Output 05/09/24 05/10/24 05/11/24 05/12/24 23:59 23:59 23:59 23:59 Intake Total 1110 2500 3080 1276.7 Output Total 650 800 950 350 Balance 460 1700 2130 926.7 Meds/Results Medications: Active Medications Generic Name Dose Route Start Last Admin Trade Name Freq PRN Reason Stop Dose Admin Acetaminophen 1,000 mg 05/09/24 00:05 Acetaminophen 500 Mg Tablet PO Q6H PRN fever or pain 1-3 Aspirin 81 mg 05/09/24 09:00 05/12/24 08:56 Aspirin 81 Mg Enteric Tablet PO 81 mg DAILY DAVID Administration Brimonidine Tartrate 1 drop 05/09/24 09:00 05/12/24 09:25 Brimonidine Tartrate 0.2% Op Soln 5 Ml Btl LEFT EYE 1 drop Q12HR DAVID Administration Buspirone HCl 5 mg 05/09/24 09:00 05/12/24 09:00 Buspirone Hcl 5 Mg Tablet PO 5 mg TID DAVID Administration Cephalexin HCl 500 mg 05/10/24 21:00 05/12/24 08:57 Cephalexin 500 Mg Capsule PO 05/15/24 09:01 500 mg Q12HR DAVID Administration Divalproex Sodium 125 mg 05/09/24 06:00 05/12/24 05:17 Divalproex Sodium Sprinkle 125 Mg Cap.Dr PO 125 mg Q8HR DAVID Administration Enoxaparin Sodium 40 mg 05/11/24 09:00 05/12/24 09:01 Enoxaparin 40 Mg/0.4 Ml Syringe SUB-Q 40 mg DAILY DAVID Administration Famotidine 20 mg 05/09/24 09:00 05/12/24 11:27 Famotidine 20 Mg Tablet PO 20 mg Q12HR DAVID Administration Guaifenesin/Dextromethorphan 10 ml 05/09/24 16:15 05/12/24 09:00 Guaifenesin/Dextromethorphan 10 Ml Udc PO 10 ml Q4HR DAVID Administration Dextrose 1,000 mls @ 100 mls/hr 05/11/24 11:55 05/12/24 08:51 Dextrose 5% 1,000 Ml IV CONT 100 mls/hr .Q10H DAVID Administration Metoprolol Tartrate 50 mg 05/09/24 00:05 05/12/24 08:58 Metoprolol Tartrate 50 Mg Tab PO 50 mg Q12HR DAVID Administration Multivitamins/Minerals 1 tablet 05/09/24 09:00 05/12/24 08:57 Opti-Gen Tab PO 1 tablet QAM DAVID Administration Sertraline HCl 50 mg 05/09/24 09:00 05/12/24 09:00 Sertraline Hcl 50 Mg Tablet PO 50 mg DAILY DAVID Administration Tamsulosin HCl 0.4 mg 05/09/24 00:05 05/11/24 21:41 Tamsulosin Hcl 0.4 Mg Capsule PO 0.4 mg HS DAVID Administration Timolol Maleate 1 drop 05/09/24 09:00 05/12/24 09:26 Timolol Maleate 0.5% Op Soln 5 Ml Bottle LEFT EYE 1 drop Q12HR DAVID Administration Trazodone HCl 50 mg 05/09/24 00:15 05/11/24 21:41 Trazodone Hcl 50 Mg Tablet PO 50 mg HS DAVID Administration Radiology Results: ITS Impressions Chest X-Ray 05/08/24 18:15 IMPRESSION: No focal infiltrate or effusion. Head CT 05/08/24 23:10 Impression: No acute intracranial hemorrhage or suspicious mass effect. Inflammatory sinus disease, demonstrating progression from prior.
[2024-05-12 14:17] VITALS: BP 128/60; PULSE 60; RESP 16; TEMP 36.6; O2SAT 96
[2024-05-12] MEDS: ACETAMINOPHEN 500 MG TABLET 1000 MG PO (15:13)
[2024-05-12] MEDS: AMOXICILLIN/CLAVULANATE K 500-125 MG TAB 1 TABLET PO (20:26)
[2024-05-12] MEDS: TAMSULOSIN HCL 0.4 MG CAPSULE PO (20:26)
[2024-05-12] MEDS: traZODone HCL 50 MG TABLET PO (20:27)
[2024-05-12 20:29] VITALS: PULSE 58
[2024-05-12 22:00] VITALS: BP 137/56; PULSE 58; RESP 13; TEMP 36.2; O2SAT 96
[2024-05-13] MEDS: DEXTROSE 5% 1,000 ML 1,000 ML 100 ML IV CONT ×2 (03:21→14:00)
[2024-05-13] MEDS: DIVALPROEX SODIUM SPRINKLE 125 MG CAP.DR PO ×3 (05:16→21:34)
[2024-05-13 05:54] VITALS: BP 149/71; PULSE 63; RESP 14; TEMP 36.2; O2SAT 97
[2024-05-13 07:48] LABS: Anion Gap 6 mmol/L (4-12); Blood Urea Nitrogen 24 mg/dL (9-20); Calcium 8.5 mg/dL (8.4-10.2); Carbon Dioxide 21 mmol/L (22-30); Chloride 112 mmol/L (98-107); Estimated CRCL calculation 44 ml/min; Estimated Glomerular Filt Rate > 60; Glucose 87 mg/dL (65-110); Potassium 3.5 mmol/L (3.4-5.0); Sodium 139 mmol/L (137-145)
[2024-05-13] MEDS: ENOXAPARIN 40 MG/0.4 ML SYRINGE SUB-Q (08:28)
[2024-05-13] MEDS: busPIRone HCL 5 MG TABLET PO ×3 (08:28→16:43)
[2024-05-13 08:29] VITALS: PULSE 58
[2024-05-13] MEDS: SERTRALINE HCL 50 MG TABLET PO (08:29)
[2024-05-13] MEDS: AMOXICILLIN/CLAVULANATE K 500-125 MG TAB 1 TABLET PO ×2 (08:29→21:30)
[2024-05-13] MEDS: METOPROLOL TARTRATE 50 MG TAB PO ×2 (08:29→21:34)
[2024-05-13] MEDS: BRIMONIDINE TARTRATE 0.2% OP SOLN 5 ML BTL 1 DROP LEFT EYE ×2 (08:31→21:35)
[2024-05-13] MEDS: TIMOLOL MALEATE 0.5% OP SOLN 5 ML BOTTLE 1 DROP LEFT EYE ×2 (08:31→21:35)
[2024-05-13] MEDS: FAMOTIDINE 20 MG TABLET PO ×2 (08:31→21:30)
[2024-05-13] MEDS: ASPIRIN 81 MG ENTERIC TABLET PO (08:31)
[2024-05-13] MEDS: OPTI-GEN TAB 1 TABLET PO (08:31)
--- NOTE | 2024-05-13 12:55 | P.DS_ITS ---
DS: Admitting Diagnosis Discharge Date 13 May 2024 Admitting Diagnosis hypernatremia, dehydration DS: Discharge Diagnosis Discharge Diagnosis (1) Hypernatremia: Code(s): E87.0 - Hyperosmolality and hypernatremia Status: Acute Assessment and Plan: * 05/11 Na151 * 05/13 Na 139 (2) FRANCIA (acute kidney injury): Code(s): N17.9 - Acute kidney failure, unspecified Status: Acute Assessment and Plan: * Resolved (3) Essential hypertension: Code(s): I10 - Essential (primary) hypertension Status: Acute Assessment and Plan: * 05/13 149/71 (4) Atrial fibrillation: Code(s): I48.91 - Unspecified atrial fibrillation Status: Acute Assessment and Plan: * Stable (5) Chronic anticoagulation: Code(s): Z79.01 - 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 Status: Acute Assessment and Plan: * Eliquis on hold, resumed 05/13 * ASA 81 mg daily, stop 05/13 (6) Severe protein-calorie malnutrition: Code(s): E43 - Unspecified severe protein-calorie malnutrition Status: Acute Assessment and Plan: * Encourage PO intake (7) Dysphagia: Qualifiers: Dysphagia type: unspecified Qualified Code(s): R13.10 - Dysphagia, unspecified Code(s): R13.10 - Dysphagia, unspecified Status: Acute Assessment and Plan: * Spouse considering hospice pending his hospital course (8) COVID-19: Code(s): U07.1 - COVID-19 Status: Acute Assessment and Plan: * On r/a, past window of therapy, no intervention required (9) Vascular dementia: Qualifiers: Dementia behavioral or psychological symptom: unspecified whether behavioral, psychotic, or mood disturbance or anxiety Dementia severity: severe Qualified Code(s): F01.C0 - Vascular dementia, severe, without behavioral disturbance, psychotic disturbance, mood disturbance, and anxiety Code(s): F01.50 - Vascular dementia, unspecified severity, without behavioral disturbance, psychotic disturbance, mood disturbance, and anxiety Status: Acute Assessment and Plan: * Chronic DS: Summary Hospital Course Reason for hospitalization: Lethargy Hospital Course: Admitted May 05 from [facility]. Was not eating well is lethargic. Found to be hypernatremic. Sodium 156 at admission and improved to 139 by day of discharge after infusion of hypotonic fluids. He was found to have E coli in his urine and this was treated with p.o. antibiotics. His mental status improved dramatically. His p.o. intake improved dramatically. On day of discharge his sodium was 139, potassium 3.5, BUN 24, creatinine 1. Although his had discussed possible hospice admission prior to hospital admission, she was going to postpone this to determine how he did for oral intake after treating his dehydration, hypernatremia, and urinary tract infection. Time Spent with Patient Time attestation: Total time spent providing and/or coordinating discharge services: Exam Narrative: HEENT: PERRL, sclerae nonicteric, pharyngeal mucosa pink and intact NECK: No JVD, adenopathy, or thyromegaly CHEST: Clear to auscultation. Normal effort. HEART: NL S1/S2, regular, no murmur ABDOMEN: BS+, soft, nontender, no mass, no bruits EXTREMITIES: No cyanosis, edema, or clubbing NEUROLOGIC: CN intact and symmetric to inspection. MUSCULOSKELETAL: No gross deformity to visual inspection. PSYCH: Alert. Oriented to person. Follows simple commands. Speech slurred but mostly intelligible. DS: Data Data Completed and Pending Labs on day of discharge: Labs from last 24 hours 05/13/24 07:23 Sodium 139 Potassium 3.5 Chloride 112 H Carbon Dioxide 21 L Anion Gap 6 BUN 24 H D Creatinine 1.00 Estim Creat Clear Calc 44 Estimated GFR > 60 Glucose 87 Calcium 8.5 Preliminary micro results at discharge 05/08/24 22:22 Blood Culture - Preliminary Blood 05/08/24 22:27 Blood Culture - Preliminary Blood Discharge Plan Discharge Discharging Clinician: Ty Weathers Patient Disposition: [place] Intermediate/Asst Living Diet: other - see discharge instructions Discharge Instructions: Diet: Pureed Level 4 diet Patient Instructions: Antibiotic Form Patient Language: Ukrainian Stand Alone Forms: General Discharge Information Follow-up/Referrals: Kb,MD Seb [Primary Care Provider] - 1 Week (UTI, dementia, hypernatremia, poor oral intake) Discharge Medications: New amoxicillin-pot clavulanate [Augmentin] 500-125 mg Tablet 1 tablet PO Q12HR Qty: 11 0RF Continued PreserVision AREDS-2 1 cap PO DAILY Qty: 30 0RF acetaminophen 500 mg capsule 1,000 mg PO Q6H PRN (Reason: fever or pain) Qty: 60 0RF brimonidine-timolol 0.2-0.5 % drops 1 drp LEFT EYE Q12H Qty: 3 0RF divalproex [Depakote Sprinkles] 125 mg capsule, delayed rel sprinkle 125 mg PO Q8H Qty: 90 0RF Eliquis 5 mg tablet 5 mg PO Q12H Qty: 60 0RF famotidine 20 mg tablet 20 mg PO Q12H Qty: 60 0RF metoprolol tartrate 50 mg tablet 50 mg PO Q12H Qty: 60 0RF brimonidine-timolol 0.2-0.5 % drops 1 drp ophthalmic (eye) HS Qty: 3 0RF atorvastatin 10 mg tablet 10 mg PO QPM Qty: 30 0RF buspirone 5 mg tablet 5 mg PO TID Qty: 90 0RF tamsulosin 0.4 mg capsule 0.4 mg PO Q24H Qty: 3 0RF trazodone 50 mg tablet 50 mg PO HS Qty: 30 0RF sertraline 50 mg tablet 50 mg PO Q24H Qty: 3 0RF Discontinued acetaminophen 500 mg capsule 1,000 mg PO Q6H PRN (Reason: pain) Qty: 20 0RF buspirone 5 mg tablet 10 mg PO TID Rx Instructions: 8AM-4PM-8PM aspirin 81 mg Tablet,Delayed Release (Dr/Ec) 81 mg PO DAILY potassium chloride [Klor-Con M20] 20 mEq tablet,ER particles/crystals 20 meq PO DAILY tamsulosin 0.4 mg capsule 0.4 mg PO DAILY furosemide 40 mg tablet 40 mg PO DAILY trazodone 50 mg Tablet 50 mg PO HS divalproex 125 mg tablet,delayed release (DR/EC) 125 mg PO BID metoprolol tartrate 50 mg tablet 50 mg PO BID famotidine 20 mg tablet 20 mg PO BID Eliquis DVT-PE Treat 30D Start 5 mg (74 tabs) tablets,dose pack See Rx Instructions .ROUTE .COMPLEX Qty: 74 0RF Rx Instructions: orally per package directions aspirin [Adult Aspirin Regimen] 81 mg tablet,delayed release (DR/EC) 81 mg PO DAILY furosemide 40 mg tablet 40 mg PO DAILY potassium chloride 20 mEq/15 mL liquid 20 meq PO DAILY PreserVision AREDS-2 250-90-40-1 mg capsule 1 tablet PO DAILY Other Ambulatory Orders: Comprehensive Metabolic Panel (Routine) Timeframe: 1 Week Location: Determined by Patient Ordered By: Ty Weathers Valproic Acid (Routine) Timeframe: 1 Week Location: Determined by Patient Ordered By: Ty Weathers Date of admission: 05/09/24 07:27 Primary Care Provider: KbSeb Admitting Provider: Brittany Juarez Attending physician on admission: Brittany Juarez Condition: Stable
[2024-05-13 13:48] VITALS: BP 145/57; PULSE 55; RESP 16; TEMP 36.4; O2SAT 98
[2024-05-13] MEDS: ATORVASTATIN 10 MG TABLET PO (16:42)
--- NOTE | 2024-05-13 18:33 | P.PNIM_ITS ---
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 Status: Acute Assessment and Plan: * Eliquis on hold, resumed 05/13 * ASA 81 mg daily, stop 05/13 (6) Severe protein-calorie malnutrition: Code(s): E43 - Unspecified severe protein-calorie malnutrition Status: Acute Assessment and Plan: * Encourage PO intake (7) Dysphagia: Qualifiers: Dysphagia type: unspecified Qualified Code(s): R13.10 - Dysphagia, unspecified Code(s): R13.10 - Dysphagia, unspecified Status: Acute Assessment and Plan: * Spouse considering hospice pending his hospital course (8) COVID-19: Code(s): U07.1 - COVID-19 Status: Acute Assessment and Plan: * On r/a, past window of therapy, no intervention required (9) Vascular dementia: Qualifiers: Dementia severity: severe Dementia behavioral or psychological symptom: unspecified whether behavioral, psychotic, or mood disturbance or anxiety Qualified Code(s): F01.C0 - Vascular dementia, severe, without behavioral disturbance, psychotic disturbance, mood disturbance, and anxiety Code(s): F01.50 - Vascular dementia, unspecified severity, without behavioral disturbance, psychotic disturbance, mood disturbance, and anxiety Status: Acute Assessment and Plan: * Chronic Subjective Date/time seen: 05/13/24 18:33 Interval history: More alert. Eating better. Spouse wishes to wait until 05/14 for discharge as he becomes agitated with the [facility]. Review of Systems Review of Systems: Review of systems unobtainable due to patient's history of dementia. Exam 2 Narrative: HEENT: PERRL, sclerae nonicteric, pharyngeal mucosa pink and intact NECK: No JVD, adenopathy, or thyromegaly CHEST: Clear to auscultation. Normal effort. HEART: NL S1/S2, regular, no murmur ABDOMEN: BS+, soft, nontender, no mass, no bruits EXTREMITIES: No cyanosis, edema, or clubbing NEUROLOGIC: CN intact and symmetric to inspection. MUSCULOSKELETAL: No gross deformity to visual inspection. PSYCH: Alert. Oriented to person. Follows simple commands. Speech slurred but mostly intelligible. Objective Data Vital Signs Vital Signs: Vital Signs - 24 hr 05/12/24 20:00 05/12/24 20:29 05/12/24 22:00 Temperature 97.1 F L Pulse Rate 58 L 58 L Respiratory Rate 13 Blood Pressure 137/56 L Pulse Oximetry 96 Oxygen Delivery Room Air 05/13/24 05:54 05/13/24 08:29 05/13/24 09:05 Temperature 97.1 F L Pulse Rate 63 58 L Respiratory Rate 14 Blood Pressure 149/71 H Pulse Oximetry 97 Oxygen Delivery Room Air 05/13/24 13:48 Temperature 97.6 F Pulse Rate 55 L Respiratory Rate 16 Blood Pressure 145/57 H Pulse Oximetry 98 Oxygen Delivery Intake/Output Intake/Output: Intake & Output 05/10/24 05/11/24 05/12/24 05/13/24 23:59 23:59 23:59 23:59 Intake Total 2500 3080 2465.0 3090 Output Total 362 048 3004 2200 Balance 1700 2130 1215.0 890 Meds/Results Medications: Active Medications Generic Name Dose Route Start Last Admin Trade Name Freq PRN Reason Stop Dose Admin Acetaminophen 1,000 mg 05/09/24 00:05 05/12/24 15:13 Acetaminophen 500 Mg Tablet PO 1,000 mg Q6H PRN Administration fever or pain 1-3 Amoxicillin/Clavulanate Potassium 1 tablet 05/12/24 21:00 05/13/24 08:29 Amoxicillin/Clavulanate K 500-125 Mg Tab PO 1 tablet Q12HR DAVID Administration Apixaban 5 mg 05/13/24 21:00 Apixaban 5 Mg Tablet PO Q12H DAVID Atorvastatin Calcium 10 mg 05/13/24 18:00 05/13/24 16:42 Atorvastatin 10 Mg Tablet PO 10 mg QPM DAVID Administration Brimonidine Tartrate 1 drop 05/09/24 09:00 05/13/24 08:31 Brimonidine Tartrate 0.2% Op Soln 5 Ml Btl LEFT EYE 1 drop Q12HR DAVID Administration Buspirone HCl 5 mg 05/09/24 09:00 05/13/24 16:43 Buspirone Hcl 5 Mg Tablet PO 5 mg TID DAVID Administration Divalproex Sodium 125 mg 05/09/24 06:00 05/13/24 16:42 Divalproex Sodium Sprinkle 125 Mg Cap.Dr PO 125 mg Q8HR DAVID Administration Famotidine 20 mg 05/09/24 09:00 05/13/24 08:31 Famotidine 20 Mg Tablet PO 20 mg Q12HR DAVID Administration Dextrose 1,000 mls @ 100 mls/hr 05/11/24 11:55 05/13/24 14:00 Dextrose 5% 1,000 Ml IV CONT 100 mls/hr .Q10H DAVID Administration Metoprolol Tartrate 50 mg 05/09/24 00:05 05/13/24 08:29 Metoprolol Tartrate 50 Mg Tab PO 50 mg Q12HR DAVID Administration Multivitamins/Minerals 1 tablet 05/09/24 09:00 05/13/24 08:31 Opti-Gen Tab PO 1 tablet QAM DAVID Administration Sertraline HCl 50 mg 05/09/24 09:00 05/13/24 08:29 Sertraline Hcl 50 Mg Tablet PO 50 mg DAILY DAVID Administration Tamsulosin HCl 0.4 mg 05/09/24 00:05 05/12/24 20:26 Tamsulosin Hcl 0.4 Mg Capsule PO 0.4 mg HS DAVID Administration Timolol Maleate 1 drop 05/09/24 09:00 05/13/24 08:31 Timolol Maleate 0.5% Op Soln 5 Ml Bottle LEFT EYE 1 drop Q12HR DAVID Administration Trazodone HCl 50 mg 05/09/24 00:15 05/12/24 20:27 Trazodone Hcl 50 Mg Tablet PO 50 mg HS DAVID Administration Radiology Results: ITS Impressions Chest X-Ray 05/08/24 18:15 IMPRESSION: No focal infiltrate or effusion. Head CT 05/08/24 23:10 Impression: No acute intracranial hemorrhage or suspicious mass effect. Inflammatory sinus disease, demonstrating progression from prior. Labs Labs: Laboratory Results - last 24 hr 05/13/24 07:23 Sodium 139 Potassium 3.5 Chloride 112 H Carbon Dioxide 21 L Anion Gap 6 BUN 24 H D Creatinine 1.00 Estim Creat Clear Calc 44 Estimated GFR > 60 Glucose 87 Calcium 8.5
[2024-05-13 21:25] VITALS: BP 154/67; PULSE 60; RESP 18; TEMP 36.7; O2SAT 100
[2024-05-13] MEDS: TAMSULOSIN HCL 0.4 MG CAPSULE PO (21:30)
[2024-05-13] MEDS: traZODone HCL 50 MG TABLET PO (21:30)
[2024-05-13] MEDS: APIXABAN 5 MG TABLET PO (21:30)
[2024-05-13 21:34] VITALS: PULSE 61
[2024-05-14] MEDS: DIVALPROEX SODIUM SPRINKLE 125 MG CAP.DR PO (05:30)
[2024-05-14 06:00] VITALS: BP 150/77; PULSE 60; RESP 18; TEMP 36.5; O2SAT 99
[2024-05-14 06:43] LABS: Anion Gap 5 mmol/L (4-12); Blood Urea Nitrogen 21 mg/dL (9-20); Calcium 8.9 mg/dL (8.4-10.2); Carbon Dioxide 23 mmol/L (22-30); Chloride 111 mmol/L (98-107); Estimated CRCL calculation 47 ml/min; Estimated Glomerular Filt Rate > 60; Glucose 90 mg/dL (65-110); Potassium 3.8 mmol/L (3.4-5.0); Sodium 139 mmol/L (137-145)
[2024-05-14 08:43] VITALS: PULSE 54
[2024-05-14] MEDS: APIXABAN 5 MG TABLET PO (08:43)
[2024-05-14] MEDS: busPIRone HCL 5 MG TABLET PO (08:43)
[2024-05-14] MEDS: AMOXICILLIN/CLAVULANATE K 500-125 MG TAB 1 TABLET PO (08:43)
[2024-05-14] MEDS: OPTI-GEN TAB 1 TABLET PO (08:43)
[2024-05-14] MEDS: SERTRALINE HCL 50 MG TABLET PO (08:43)
[2024-05-14] MEDS: FAMOTIDINE 20 MG TABLET PO (08:43)
[2024-05-14] MEDS: METOPROLOL TARTRATE 50 MG TAB PO (08:43)
[2024-05-14] MEDS: TIMOLOL MALEATE 0.5% OP SOLN 5 ML BOTTLE 1 DROP LEFT EYE (08:44)
[2024-05-14] MEDS: BRIMONIDINE TARTRATE 0.2% OP SOLN 5 ML BTL 1 DROP LEFT EYE (08:44)
--- NOTE | 2024-05-14 10:26 | PM.DS ---
DS: Admitting Diagnosis Discharge Date 05/14/24 Admitting Diagnosis Shortness of breath Increased lethargy DS: Discharge Diagnosis Discharge Diagnosis (1) Atrial fibrillation: Code(s): I48.91 - Unspecified atrial fibrillation Status: Acute (2) Severe protein-calorie malnutrition: Code(s): E43 - Unspecified severe protein-calorie malnutrition Status: Acute (3) Chronic kidney disease: Qualifiers: Chronic kidney disease stage: stage 3 (moderate) Chronic kidney disease stage 3 subtype: unspecified whether 3a or 3b Qualified Code(s): N18.30 - Chronic kidney disease, stage 3 unspecified Code(s): N18.9 - Chronic kidney disease, unspecified Status: Acute (4) COVID-19: Code(s): U07.1 - COVID-19 Status: Acute DS: Summary Hospital Course Reason for hospitalization: Show worsening shortness of breadth Increased lethargy E coli UTI Acute kidney injury Severe protein calorie malnutrition Hospital Course: 89-year-old male with a past medical history of relatively the advanced dementia, glaucoma, GERD, essential hypertension, BPH and chronic anticoagulation who presented to the ER from [facility] due increased work of breathing and lethargy. The patient tested positive for COVID 4 days ago and has been ill for about 7 days. His oxygen saturations were 90% on room air. EMS put him on 4 L nasal cannula in transit but patient was weaned back down to room air and her facility and was satting between 94-100% on room air. Was found to have E coli UTI, was treated with ceftriaxone, transition to Augmentin upon discharge. Also had FRANCIA upon admission which had improved/resolved prior to discharge. Patient was discharged back to [facility] in stable condition. Status at Discharge Overall status at discharge: patient is progressing back to baseline Time Spent with Patient Time attestation: Total time spent providing and/or coordinating discharge services: Exam Narrative: HEENT: PERRL, sclerae nonicteric, NECK: No JVD, CHEST: Clear to auscultation. Normal effort. HEART: NL S1/S2, regular, no murmur ABDOMEN: BS+, soft, nontender, EXTREMITIES: edema, NEUROLOGIC: CN intact and symmetric to inspection. MUSCULOSKELETAL: No gross deformity to visual inspection. PSYCH: Alert. Oriented to person. Follows simple commands. Speech slurred but mostly intelligible. DS: Data Data Completed and Pending Labs on day of discharge: Labs from last 24 hours 05/14/24 06:06 Sodium 139 Potassium 3.8 Chloride 111 H Carbon Dioxide 23 Anion Gap 5 BUN 21 H Creatinine 0.94 Estim Creat Clear Calc 47 Estimated GFR > 60 Glucose 90 Calcium 8.9 Discharge Plan Discharge Attending physician on discharge: Sushila Erazo Discharging Clinician: Ty Weathers Anticipated Discharge Date/Time: 05/14/24 08:31 Patient Disposition: NH Snf/Asst Living Activity: as tolerated Diet: other - see discharge instructions Discharge Instructions: Diet: Pureed Level 4 diet Patient Instructions: Antibiotic Form, Apixaban (By mouth) Patient Language: [place] Stand Alone Forms: General Discharge Information Follow-up/Referrals: Kb,MD Seb [Primary Care Provider] - 1 Week (UTI, dementia, hypernatremia, poor oral intake) Discharge Medications: New amoxicillin-pot clavulanate [Augmentin] 500-125 mg Tablet 1 tablet PO Q12HR Qty: 11 0RF Continued buspirone 5 mg tablet 5 mg PO TID Qty: 90 0RF trazodone 50 mg tablet 50 mg PO HS Qty: 30 0RF atorvastatin 10 mg tablet 10 mg PO QPM Qty: 30 0RF famotidine 20 mg tablet 20 mg PO Q12H Qty: 60 0RF tamsulosin 0.4 mg capsule 0.4 mg PO Q24H Qty: 3 0RF metoprolol tartrate 50 mg tablet 50 mg PO Q12H Qty: 60 0RF sertraline 50 mg tablet 50 mg PO Q24H Qty: 3 0RF divalproex [Depakote Sprinkles] 125 mg capsule, delayed rel sprinkle 125 mg PO Q8H Qty: 90 0RF acetaminophen 500 mg capsule 1,000 mg PO Q6H PRN (Reason: fever or pain) Qty: 60 0RF brimonidine-timolol 0.2-0.5 % drops 1 drp ophthalmic (eye) HS Qty: 3 0RF brimonidine-timolol 0.2-0.5 % drops 1 drp LEFT EYE Q12H Qty: 3 0RF Eliquis 5 mg tablet 5 mg PO Q12H Qty: 60 0RF PreserVision AREDS-2 1 cap PO DAILY Qty: 30 0RF Discontinued acetaminophen 500 mg capsule 1,000 mg PO Q6H PRN (Reason: pain) Qty: 20 0RF buspirone 5 mg tablet 10 mg PO TID Rx Instructions: 8AM-4PM-8PM aspirin 81 mg Tablet,Delayed Release (Dr/Ec) 81 mg PO DAILY potassium chloride [Klor-Con M20] 20 mEq tablet,ER particles/crystals 20 meq PO DAILY tamsulosin 0.4 mg capsule 0.4 mg PO DAILY furosemide 40 mg tablet 40 mg PO DAILY trazodone 50 mg Tablet 50 mg PO HS divalproex 125 mg tablet,delayed release (DR/EC) 125 mg PO BID metoprolol tartrate 50 mg tablet 50 mg PO BID famotidine 20 mg tablet 20 mg PO BID Eliquis DVT-PE Treat 30D Start 5 mg (74 tabs) tablets,dose pack See Rx Instructions .ROUTE .COMPLEX Qty: 74 0RF Rx Instructions: orally per package directions aspirin [Adult Aspirin Regimen] 81 mg tablet,delayed release (DR/EC) 81 mg PO DAILY furosemide 40 mg tablet 40 mg PO DAILY potassium chloride 20 mEq/15 mL liquid 20 meq PO DAILY PreserVision AREDS-2 250-90-40-1 mg capsule 1 tablet PO DAILY Other Ambulatory Orders: Comprehensive Metabolic Panel (Routine) Timeframe: 1 Week Location: Determined by Patient Ordered By: Ty Weathers Valproic Acid (Routine) Timeframe: 1 Week Location: Determined by Patient Ordered By: Ty Weathers Date of admission: 05/09/24 07:27 Primary Care Provider: KbSeb Admitting Provider: Brittany Juarez Attending physician on admission: Brittany Juarez Condition: Stable
--- NOTE | 2024-05-14 11:21 | PCNFU ---
Nutrition Follow-Up Complete: Severe protein calorie malnutrition related to chronic loss of appetite, dementia as evidenced by weight loss 15%/3 months; intakes <75% needs >1 month. Goal:Adequate PO intakes at least 75% meals and supplements Pt slowly progressing towards goal Pt current nutrition is Pureed, Ensure TID. Nutrition recommendation: continue with current plan of care Last recorded weight is 68.9 kg. Bowel Motility: +BM 05/12 Labs Reviewed: Hgb:10.3, HCT:34.8, Alb:3.4, BUN:21 Meds Noted: MVI Skin: WNL Additional Notes: Pt continues on a pureed diet, Ensure Enlive TID. Nursing states pt is more alert and eating much better today. Discharge today back PA. Agree with orders Monitoring intakes, weights, labs, supplement tolerance, plan of care Follow up in 5 days
== END 2024-05-14 11:30 | DRG 177 ==
LOC: ANHED 19:02 → ANH3MEDSUR 23:06
PROVIDERS: Internal Medicine; Nurse Practitioner Gerontology; Student in an Organized Health Care Education/Training Program; Admitting Provider Internal Medicine; Emergency Provider Physician Assistant; PCP Internal Medicine; Visit Provider Internal Medicine
DX: U07.1 COVID-19 (principal); E43 Unspecified severe protein-calorie malnutrition; N39.0 Urinary tract infection, site not specified; N17.9 Acute kidney failure, unspecified; E87.0 Hyperosmolality and hypernatremia; B96.20 Unspecified Escherichia coli [E. coli] as the cause of diseases classified elsewhere; E78.5 Hyperlipidemia, unspecified; F03.90 Unspecified dementia, unspecified severity, without behavioral disturbance, psychotic disturbance, mood disturbance, and anxiety; H40.9 Unspecified glaucoma; I12.9 Hypertensive chronic kidney disease with stage 1 through stage 4 chronic kidney disease, or unspecified chronic kidney disease; I48.91 Unspecified atrial fibrillation; K21.9 Gastro-esophageal reflux disease without esophagitis; N18.30 Chronic kidney disease, stage 3 unspecified; N40.0 Benign prostatic hyperplasia without lower urinary tract symptoms; Z79.01 Long term (current) use of 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; Z66 Do not resuscitate; Z68.21 Body mass index [BMI] 21.0-21.9, adult; Z87.891 Personal history of nicotine dependence
CPT/HCPCS: 36415; 70450; 71045; 80048; 80053; 81001; 83880; 85025; 85027; 87040; 87086; 87186; 87637; 92610; 93005; 96361; 96365; 99285; A9270; G0378; J0696; J1650; J7070; J7120

== ENCOUNTER 2024-05-17 13:30 | Emergency (ER) | payer MEDICARE, SELFPAY ==
[2024-05-17] VITALS (7 sets, daily range): BP systolic 106–165; BP diastolic 48–88; PULSE 62–94; RESP 16–18; TEMP 37; O2SAT 96–100
--- NOTE | ~2024-05-17 | CT_ITS ---
EXAMINATION: CT brain wo con DATE: 05/17/2024 13:53 INDICATION: Head injury. Fall. TECHNIQUE: Computed tomography (CT) of the head was performed without intravenous contrast. The mA wa s adjusted according to patient size. Iterative reconstruction technique was employed. The dose-lengt h product was 605.33 mGy-cm. COMPARISON: Head CT 05/08/2024 FINDINGS: There are scattered areas of low attenuation in the cerebral white matter. There is no intr acranial hemorrhage, acute infarction, or abnormal intracranial mass lesion. 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 The ventricles are normal in size. There are likely changes of ocular lens replacement surgeries. There is extensive mucosal thickening in the right-sided sinuses with thicken ing and sclerosis of the sinus babb, consistent with chronic sinusitis. The mastoid air cells are no rmal. IMPRESSION: 1. 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 2. Extensive nonspecific cerebral white matter disease, which likely represents chronic small vessel ischemic disease. 3. Chronic sinusitis. Reviewed, dictated and finalized at location A.
--- NOTE | ~2024-05-17 | CT_ITS ---
EXAMINATION: CT cervical spine wo con DATE: 05/17/2024 13:53 INDICATION: Fall with head injury TECHNIQUE: Computed tomography (CT) of the cervical spine was performed without intravenous contrast. Automated exposure control and iterative reconstruction technique were employed. The dose-length pro duct was 416.59 mGy-cm. COMPARISON: 02/16/2024 FINDINGS: Unchanged mild cervical levocurvature and mild kyphosis of the upper cervical spine with 2 mm retroli sthesis C3 on C4 and C4 on C5. Unchanged chronic mild anterior wedging at C7 and T1. No acute fractur e. Multilevel severe disc height loss with prominent degenerative endplate changes from C2-C3 through T2-T3. Multilevel severe uncovertebral osteoarthritis. Posterior endplate osteophytes and moderate t o severe cervical facet osteoarthritis contributing to unchanged multilevel mild to moderate central canal and neural foraminal stenosis. See prior report for level by level analysis. Atherosclerotic ca lcification is at the bilateral carotid bulbs. Cervical soft tissues are otherwise unremarkable. Visu alized upper lungs are clear. IMPRESSION: 1. Stable appearance of severe cervical spondylosis. No acute osseous abnormality. Reviewed, dictated and finalized at location B. IMPRESSION: 1. Stable appearance of severe cervical spondylosis. No acute osseous abnormali ty.
--- OUTSIDE RECORDS SUMMARY | 2024-05-17 14:25 | XMS_ITS | CONTINUITY OF CARE DOCUMENT ---
Author Name ciro tanner Address Unknown Organization [facility] Address [address] [place] [address] Phone [phone] Care Team Providers Care Press Hand Name Role Phone Castro VALDIVIA, Tata Unavailable BANDAR BELL MD Unavailable [phone] BANDAR BELL MD Unavailable PROBLEMS Condition Status Date Provider Notes Venous [...] Erazo MD Hyperlipidemia active Tata Erazo MD Dementia active Tata Erazo MD Cardiology examination active Cristopher Fischer MD Peripheral artery disease active Cristopher herring MD DVT active Cristopher Fischer MD ENCOUNTERS Date Type Provider Location Encounter Diag nosis - In-person encounter Office Visit Cristopher Fischer MD [facility] Cardiology examinationPeripheral artery diseaseDVT - In-person encounter Office Visit Tata Erazo MD [facility] Hypercholesterolemiapossible CVAHyperlipidemiaDementia - In-person encounter Office Visit Tata Erazo MD [facility] Lower extremity edemaCough - In-person encounter Office Visit Cristopher Fischer MD [facility] - In-person encounter Office Visit Cristopher Fischer MD [facility] Venous insufficiency, legs, b/l - In-person encounter Office Visit Cristopher Fischer MD [facility] - In-person encounter Office Visit Tata Erazo MD [facility] Ulcer of ankle - In-person encounter Office Visit Tata Erazo MD [facility] - In-person encounter Office Visit Tata Erazo MD [facility] Exposure to COVID-19 coronavirus - In-person encounter Office Visit Tata Erazo MD [facility] 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%, 12/2019 - In-person encounter Office Visit Tata Erazo MD [facility] - In-person encounter Office Visit Tata Erazo MD [facility] - In-person encounter Office Visit Tata Erazo MD [facility] - In-person encounter Office Visit Tata Erazo MD [facility] Elevated PSA - In-person encounter Office Visit Tata Erazo MD [facility] - In-person encounter Office Visit Tata Erazo MD [facility] - In-person encounter Office Visit Tata Erazo MD [facility] - In-person encounter Office Visit Tata Erazo MD [facility] - In-person encounter Office Visit Tata Erazo MD [facility] - In-person encounter Office Visit Tata Erazo MD [facility] Elevated PSA - In-person encounter Office Visit Tata Erazo MD [facility] - In-person encounter Office Visit Tata Erazo MD [facility] - In-person encounter Office Visit Tata Erazo MD [facility] Family History of Sudden Cardiac :Family History of Sudden Cardiac : - In-person encounter Office Visit Tata Erazo MD [facility] - In-person encounter Office Visit Tata Erazo MD [facility] ANEMIA SMALL HEMORRHOIDS, 2 POLYPS, gastritis - In-person encounter Office Visit Tata Erazo MD [facility] PHYSICAL EXAMINATION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%, [...] Annemarie Lui weight E&M 180 [lb_av] Annemarie Lui height E&M 66 [in_i] Annemarie Lui blood pressure, cuff size regular An chacorta Lui Body Mass Index (Ratio) 29.05 kg/m2 Matt Erazo MD blood pressure, cuff size regular Donte bradley Rizzo blood pressure, diastolic 78 mm[Hg] Ta mirna Rizzo blood pressure, systolic 122 mm[Hg] Tab ithteddy Rizzo oxygen saturation, oximetry 100 % Brittany [...] Jar ret pulse rate 68 /min Gabe erda y respiratory rate E&M 12 /min Gabe oxygen saturation, oximetry 96 % weight E&M 188 [lb_av] Gabe y height E&M 66 [in_i] Gabe y blood pressure, cuff size regular jesus manuel Banuelos blood pressure, diastolic 75 mm[Hg] jesus manuel Banuelos blood pressure, systolic 127 mm[Hg] She elsa Banuelos oxygen saturation, oximetry 98 % Mariajose Banuelos respiratory rate E&M 20 /min Mariajose Banuelos pulse rate 63 /min Mariajose Banuelos height E&M 66 [in_i] Mariajose Banuelos Body Mass Index (Ratio) 30.50 kg/m2 Yamileth Fischre MD blood pressure, cuff size regular rret blood pressure, diastolic 69 mm[Hg] Ja rret blood pressure, systolic 127 mm[Hg] Jar ret pulse rate 65 /min Gabe respiratory rate E&M 12 /min Gabe oxygen saturation, oximetry 96 % Gabe weight E&M 189 [lb_av] Gabe y height E&M 66 [in_i] Gabe y Body Mass Index (Ratio) 30.99 kg/m2 Matt [...] blood pressure, diastolic 78 mm[Hg] Lala quiroz [place] blood pressure, systolic 130 mm[Hg] Harjinder wing [place] oxygen saturation, oximetry 97 % Hailey [place] pulse rate 86 /min [facility]&M 185 [lb_av] Hailey Beth d blood pressure, cuff size large Lala quiroz [place] respiratory rate E&M 16 /min Eliana thais [place] height E&M 66 [in_i] Hailey Beth d [...] Matt Erazo MD blood pressure, resting Yes [place] [employer] aldridge O'Andrea blood pressure, diastolic 70 mm[Hg] Ma rsha O'Andrea blood pressure, systolic 120 mm[Hg] Mar [facility] O'Andrea oxygen saturation, oximetry 98 % Kika O'Andrea respiratory rate E&M 16 /min Kika O'Andrea pulse rate 64 /min Kika O'Andrea weight E&M 195 [lb_av] Kika O'Andrea height E&M 66 [in_i] Kika O'Andrea Body Mass Index (Ratio) 31.47 kg/m2 Matt Erazo MD blood pressure, cuff size large Ke rri Gruenenfelder blood pressure, diastolic 70 mm[Hg] Ke rri Jimmieuenenfelder blood pressure, systolic 120 mm[Hg] Olga Reina oxygen saturation, oximetry 97 % Marissa Reina respiratory rate E&M 18 /min Marissa ealine pulse rate 62 /min Marissa Kinsey lder weight E&M 195 [lb_av] Marissa Kinsey lder height E&M 66 [in_i] Marissa Kinsey lder pulse rate 63 /min Tata Erazo [...] michael Sanderson oxygen saturation, oximetry 97 % Tamar Sanderson respiratory rate E&M 16 /min Tamar Sanderson pulse rate 64 /min Tamar Eldridge l weight E&M 201 [lb_av] Tamar Campbel l height E&M 66 [in_i] Tamar Campbel l Body Mass Index (Ratio) 31.31 kg/m2 Matt Erazo MD blood pressure, diastolic 80 mm[Hg] Da paul Oliverio blood pressure, systolic 128 mm[Hg] Dac ia Oliverio oxygen saturation, oximetry 94 % Jeane Oliveroi respiratory rate E&M 18 /min Jeane V [...] blood pressure, diastolic 93 mm[Hg] Irving Proctor Pete blood pressure, systolic 179 mm[Hg] Darlene Freeman oxygen saturation, oximetry 97 % Roberto Freeman respiratory rate E&M 18 /min Stephanie Freeman pulse rate 74 /min Roberto riojas weight E&M 204.6 [lb_av] Roberto chavison height E&M 66 [in_i] Roberto Cordero nson Body Mass Index (Ratio) 33.25 kg/m2 Matt Erazo MD blood pressure, cuff size regular Ke rri Nuno blood pressure, diastolic 90 mm[Hg] Ke rri Nuno blood pressure, systolic 142 mm[Hg] Olga Reina oxygen saturation, oximetry 95 % Marissa Reina respiratory rate E&M 18 /min Marissa elaine pulse rate 72 /min Marissa Kinsey lder weight E&M 206 [lb_av] Marissa Kinsey lder height E&M 66 [in_i] Marissa landiner Body Mass Index (Ratio) 32.76 kg/m2 Matt Erazo MD blood pressure, cuff size regular Ke rri Nuno blood pressure, diastolic 71 mm[Hg] Ke rri Nuno blood pressure, systolic 132 mm[Hg] Olga Reina oxygen saturation, oximetry 96 % Marissa Reina respiratory rate E&M 16 /min Marissa Godwin argent[place] pulse rate 70 /min Marissa Amelie er weight E&M 203 [lb_av] Marissa Samuelping er height E&M 66 [in_i] Marissa Amelie er blood pressure, diastolic 76 mm[Hg] To carmela Erazo MD blood pressure, systolic 140 mm[Hg] Ton malachi Erazo MD pulse rate 65 /min Mairssa Amelie er oxygen saturation, oximetry 96 % Marissa Nuno respiratory rate E&M 16 /min Marissa Godwin argenitna Body Mass Index (Ratio) 32.76 kg/m2 Simms [...] Roberto solitario blood pressure, diastolic 89 mm[Hg] Nh yumi Lewis blood pressure, systolic 162 mm[Hg] Glenda trice [...] blood pressure, diastolic 64 mm[Hg] An eatris Armaan blood pressure, systolic 118 mm[Hg] Ane atris Brown pulse rate 70 /min Aneatris Armaan oxygen saturation, oximetry 95 % Aneatris Armaan respiratory rate E&M 18 /min Demetri Crook weight E&M 201 [lb_av] Aneatris Armaan height E&M 66 [in_i] Frdeo Crook ALLERGIES No Known Drug Allergies RESULTS [...] 8.7 Low bilirubin, serum, total 0.4 mg/dL [facility] 0.0 - 1.2 urea nitrogen, blood 18.0 mg/dL [facility] 8.0 - 23.0 blood glucose, random 106.0 mg/dL [facility] 74.0 - 99.0 High red blood cell distribution width, size density 44.0 fL [facility] - immature granulocytes, percentage of total cells, blood 0.2 % [facility] - nucleated red blood cells as percent of blood leukocytes 0.0 % [facility] - red blood cell (erythrocyte) count, per [...] 75.0 - 100.0 hematocrit, blood 41.1 % [facility] 35.0 - 55.0 hemoglobin, blood 14.1 g/dL [...] [facility] trazodone 50 mg tablet active Emir Pritchettzaverónica chlorthalidone 25 mg tablet completed - 06/27 [facility] metoprolol succinate 50 mg tablet extended release 24 hr completed TAKE 1 TABLET BY MOUTH EVERY DAY 03/27 - 06/27 Emir Watsonmedzai Farxiga 5 mg tablet completed - 06/27 Emir Pritchettzaverónica furosemide 40 mg tablet active Take 1 tablet by mouth once a day 09/21 Emir Pritchettzai losartan 100 mg tablet completed Take 1 tablet by mouth once a day 08/19 - 06/27 Emir Pritchettzaverónica metoprolol succinate 50 mg tablet extended release 24 hr completed Take 1 tablet by mouth once a day TAKE 1 TABLET BY MOUTH EVERY DAY 04/27 - 03/27 Gabe Powell olmesartan 40 mg tablet completed TAKE 1 [...] daily - 10/26 Marissa Reina PreserVision AREDS [id number] capsule active 1 twice a day 09/21 [...] TAB. DAILY 04/13 - Tata Erazo MD BENICAMustapha HCT 20-12.5 MG ORAL [...] MD smoking, year quit 25 yrs Cristopher alngford MD smoking history, tot al pack/year 8 [...] History: P atkatlyn is a former smoker. Alexei Fuentes social history reviewed E&M revi ewed - no changes required Alexei Fuentes smoking, year quit 1991 Kika O' Andrea smoking history, tot al pack/year 8 Kika O'Andrea cigarette use yes Kika O'Andrea smoking status Former smoker Kika O'Jossie l social history E&M Marital Statu s: Smoking History: P atkatlyn is a former smoker. Alexei Fuentes social history reviewed E&M revi ewed - no changes required Alexei Fuentes smoking, year quit 1991 Marissa Francia vallejo smoking history, tot al pack/year 8 Marissa Fionaer cigarette use yes Marissa Maribel soliz smoking status Former smoker Marissa Samuelkati bowenser social history E&M Marital Statu s: Smoking [...] Tata Erazo MD alcohol use no Marissa Sennepatricke lder smoking status Former smoker Marissadebbie Chatterjeene nfelder social history reviewed E&M revi ewed - no changes required Tata Erazo MD alcohol use no Marissa Gruenenfe lder smoking status Former smoker Marissa Greenfield nfelder social history reviewed E&M revi ewed - no changes required Tata Erazo MD alcohol use no Marissa Kinsey lder smoking status Former smoker Marissa Greenfield [facility] social history reviewed E&M revi ewed - [...] Erazo MD social history E&M Marital Status: Jamal Erazo MD social history reviewed E&M reviewed [...] Policy type / Coverage type [place]aud red republican ID [employer] MEDICARE Medicare [id number] [facility] [id number] ADVANCE DIRECTIVES Name Date DISCUSSED - NO DECISION MADE TREATMENT PLAN Date Name Performer [id number],C, B P today: 142/79 P rior BP: [...] by mouth every day Cristopher Fischer MD [id number],C,H is sores have healed and he is compliant with his compression stockings. I f his Sx worsen I recommend doing a venaseal procedure. Cristopher Fischer MD [id number],C,resolved Yamileth Fischer MD [id number],C,w ound care managing. H e will follow up in 1 month to evaluate Cristopher Fischer MD [id number],C,S ignificant bilaterally, will treat conservatively Cristopher Fischer MD [id number],C,Will recheck venous doppler Cristopher Fischer MD [id number],C,P t should consult wound care either at [facility] Cristopher Fischer MD [id number],S, Emir Dave i [id number],S, Emir Dave i [id number],S, Emir Dave i [id number],S, Emir Watsonmedza i [id number],S, Emir Watsonmedza i [id number],S, Emir Dave i [id number],S, Emir Ahmedza i [id number],S, Emir Ahmedza i [id number],S, Emir Shirleymedza i [id number],S, Emir Shirleymedza i [id number],S, Emir Shirleymedza i [id number],S, Emir Shirleymedza i [id number],B, Emir medza i [id number],B, Emir medza i [id number],S, Emir Shirleymedza i [id number],S, Emir Watsonmedza i [id number],S, Emir medza i [id number],S, Emir Watsonmedza i [id number],B, Emir Watsonmedza i [id number],S, Emir Watsonmedza i Cardiology:chronic f or him c ontinue [...] [facility]: O rders: C XR- PA/Lat ([id number]) Emir ximena [facility]iology [facility] Emir [...] should consult wou nd care either at [facility] Cristopher Fischer MD Cardiology [facility] [...] up Tata rodriguez MD Cardiology follow up Toniconor rodriguez MD Cardiology follow up Toniya Taurus [...] this problem includes: Felodipine Er 10 Mg [id number] (Felodipine) ..... One daily Hydrochlorothiazide 25 Mg Tabs (Hydrochlorothiazide) ..... One tab daily Bystolic 5 Mg Tabs (Nebivolol hcl) ..... One tab. daily Aspirin 81 Mg Tabs (Aspirin) ..... One tab. twice daily BP today: 149/72 Prior BP: 118/64 (03/16/2013) Tata Erazo MD new patient visit: H is updated medication list for this problem includes: Felodipine Er 10 Mg [id number] (Felodipine) ..... One daily Hydrochlorothiazide 25 Mg [...] this problem includes: Felodipine Er 10 Mg [id number] (Felodipine) ..... One daily Hydrochlorothiazide 25 Mg [...] completed EKG Tata Erazo MD completed SNOMED-CT: [id number] Physical Exam, Performed: Pulse Exam of Foot Tata Erazo MD completed EKG Tata Erazo MD completed SNOMED-CT: 992778006 171505 Current Medications Documented Tata Erazo MD completed SNOMED-CT: 19813953 Physical Exam, Performed: Pulse Exam of Foot Tata Erazo MD completed SNOMED-CT: 317594287 994654 Current Medications Documented Tata Erazo MD completed SNOMED-CT: 70397161 Physical Exam, Performed: Pulse Exam of Foot Tata Erazo MD completed SNOMED-CT: 302124847 830318 Current Medications Documented Tata Erazo MD completed SNOMED-CT: 43462514 Physical Exam, Performed: Pulse Exam of Foot Tata Erazo MD completed SNOMED-CT: 950727193 185332 Current Medications Documented Tata Erazo MD completed SNOMED-CT: 56376683 Physical Exam, Performed: Pulse Exam of Foot Tata Erazo MD completed EKG Tata Erazo MD completed SNOMED-CT: 195600543 403217 Current Medications Documented Tata Erazo MD completed SNOMED-CT: 73609310 Physical Exam, Performed: Pulse Exam of Foot Tata Erazo MD completed SNOMED-CT: 771804631 264157 Current Medications Documented Tata Erazo MD completed EKG Tata Erazo MD completed EKG Tata Erazo MD completed
--- OUTSIDE RECORDS SUMMARY | 2024-05-17 14:25 | XMS_ITS | Data Portability ---
Author Organization [place] [facility] [employer], Main Office Address [address] [place] [address] Care Team Providers Care Intelligence Chief Name Role Phone DENNIS PAYAN Primary Care Provider DENNIS PAYAN Referring Provider [phone] Assessment Encounter Date Assessment Date Assessment LastModified by Organization Details LastModified Time 11/04/2022 11/04/2022 Chest x-ray continue current therapy follow-up in 4 months [email or web address] Not available 11/07/2022 15:19:41 01/27/2023 01/27/2023 Prednisone [...] sleeping aids can make memory loss worse [email or web address] Not available 01/28/2023 10:40:21 02/09/2024 02/09/2024 By [...] DO Not Attach Compendium, Do Not Delete/merge, [id number] 4 13:36:02 cerumen removal (PROC) 2023 024 [email or web address] In-Office Order, Internal Use Only DO Not Attach Compendium DO Not Attach Compendium, Do Not Delete/merge, [id number] 4 12:29:37 Surgeries None recorded. Imaging XR, hand 2023 024 [email or web address] [facility], [address], [place], [address], 4 14:10:19 XR, chest, 2 view 2022 023 [facility] ([facility]), [address] [place], [address], 3 20:36:02 Medication Orders bupivacaine HCl 0.5 % (5 mg/mL) injection solution 2023 024 [email or web address] [facility], [address] [facility] [place], [address], 4 14:03:50 Kenalog 10 mg/mL suspension for injection 2023 024 [email or web address] [facility], [address] [facility] [place], [address], 4 14:03:50 Debrox 6.5 % ear drops 2023 024 [employer] [employer], [address] [facility] [place], [address], 4 12:38:52 prednisone 20 mg tablet 2022 023 [email or web address] [facility] In [facility], [address] [place], [address], 3 16:33:19 Patient TargetsNo targets recorded. Patient Instructions Encounter Date Encounter Id Patient Instructions Last Modified By Organization Details Last Modified Time 11/02/2023 [id number] Discussed with patient's spouse inability to safely [...] ----- HIGH RISK: >240 >200 Not Available [facility] (Lab) [address] [place], [address], 01/27/2023 20:15:49 01/28/20 23 01/27/2023 LIPID PANEL triglyceride s 162 mg/dL 0-150 high NIH RASHMI NSUS REPOR T RECOM MENDA TION FOR TRIGL YCERI JEROME: ADULT CHILD LOW RISK: <150 ----- BODER LINE: 150-1 99 ----- HIGH RISK: >200 ----- Not Available [facility] (Lab) [address] [place], [address], 01/27/2023 20:15:49 01/28/20 23 01/27/2023 LIPID PANEL HDL cholesterol 46 mg/dL 40- Not Available [place] [facility] (Lab) [address] [place], [address], 01/27/2023 20:15:49 01/28/20 23 01/27/2023 LIPID PANEL [...] WILL NOT BE REPOR AURE. Not Available [facility] (Lab) [address] [place], [address], 01/27/2023 20:15:49 01/28/20 23 01/27/2023 COMPR EHENS ERIC METAB OLIC PANEL sodium 138 mmol/ L 137-14 5 Not Available [facility] (Lab) [address] [place], [address], 01/27/2023 20:16:04 01/28/20 23 01/27/2023 COMPR EHENS ERIC METAB OLIC PANEL potassium 4.2 mmol/ L 3.5-5. 1 Not Available [facility] (Lab) [address] [place], [address], 01/27/2023 20:16:04 01/28/20 23 01/27/2023 COMPR EHENS ERIC METAB OLIC PANEL chloride 104 mmol/ L 98-107 Not Available [facility] (Lab) [address] [place], [address], 01/27/2023 20:16:04 01/28/20 23 01/27/2023 COMPR EHENS ERIC METAB OLIC PANEL carbon dioxide 28 mmol/ L 22-30 Not Available [facility] (Lab) [address] [place], [address], 01/27/2023 20:16:04 01/28/20 23 01/27/2023 COMPR EHENS ERIC METAB OLIC PANEL anion gap 10.2 mmol/ L 14-22 low Not Available [facility] (Lab) [address] [place], [address], 01/27/2023 20:16:04 01/28/20 23 01/27/2023 COMPR EHENS ERIC METAB OLIC PANEL glucose 97 mg/dL 70-99 Not Available [facility] (Lab) [address] [place], [address], 01/27/2023 20:16:04 01/28/20 23 01/27/2023 COMPR EHENS ERIC METAB OLIC PANEL BUN 23 mg/dL 8-19 high Not Available [facility] (Lab) [address] [place], [address], 01/27/2023 20:16:04 01/28/20 23 01/27/2023 COMPR EHENS ERIC METAB OLIC PANEL creatinine 1.30 mg/dL 0.66-1 .25 high Not Available [facility] (Lab) [address] [place], [address], 01/27/2023 20:16:04 01/28/20 23 01/27/2023 COMPR EHENS ERIC METAB OLIC PANEL GFR 52 Refer ence Range : Wood ge GFR Healt hy Adult : >60 [...] or ethni c subgr oups, such as Hisnd nics. Outsi de the valid ated yg [...] s/kdo qi/gf r_cal culat or Not Available [facility] (Lab) [address] [place], [address], 01/27/2023 20:16:04 01/28/20 23 01/27/2023 COMPR EHENS ERIC METAB OLIC PANEL alkaline phosphatase 66 U/L 38-126 Not Available [facility] (Lab) [address] [place], [address], 01/27/2023 20:16:04 01/28/20 23 01/27/2023 COMPR EHENS ERIC METAB OLIC PANEL alanine aminotransfe rase 18 U/L 0-50 Not Available [facility] (Lab) [address] [place], [address], 01/27/2023 20:16:04 01/28/20 23 01/27/2023 COMPR EHENS ERIC METAB OLIC PANEL aspartate aminotransfe rase 25 U/L 15-46 Not Available [facility] (Lab) [address] [place], [address], 01/27/2023 20:16:04 01/28/20 23 01/27/2023 COMPR EHENS ERIC METAB OLIC PANEL bilirubin, total 0.50 mg/dL 0.20-1 .30 Not Available [facility] (Lab) [address] [place], [address], 01/27/2023 20:16:04 01/28/20 23 01/27/2023 COMPR EHENS ERIC METAB OLIC PANEL calcium 9.9 mg/dL 8.4-10 .2 Not Available [facility] (Lab) [address] [place], [address], 01/27/2023 20:16:04 01/28/20 23 01/27/2023 COMPR EHENS ERIC METAB OLIC PANEL total protein 6.3 g/dL 6.3-8. 2 Not Available [facility] (Lab) [address] [place], [address], 01/27/2023 20:16:04 01/28/20 23 01/27/2023 COMPR EHENS ERIC METAB OLIC PANEL albumin 3.4 g/dL 3.0-4. 4 Not Available [facility] (Lab) [address] [place], [address], 01/27/2023 20:16:04 01/28/20 23 01/27/2023 COMPR EHENS ERIC METAB OLIC PANEL globulin 2.9 g/dL 2.6-4. 2 Not Available [facility] (Lab) [address] [place], [address], 01/27/2023 20:16:04 01/28/20 23 01/27/2023 COMPR EHENS ERIC METAB OLIC PANEL A/G ratio 1.2 ratio 1.0-2. 0 Not Available [facility] (Lab) [address] [place], [address], 01/27/2023 20:16:04 01/28/20 23 01/27/2023 T4 FREE free T4 1.04 NG/dL 0.78-2 .19 Not Available [facility] (Lab) [address] [place], [address], 01/27/2023 20:38:46 01/28/20 23 01/27/2023 T3 FREE free T3 4.0 pg/mL 2.77-5 .27 Not Available [facility] (Lab) [address] [place], [address], 01/27/2023 20:38:52 01/28/20 23 01/27/2023 TEST NOT PERFO RMED test not performed SEE COMMEN T CBC TEST NOT PERFO RMED DUE TO EDTA SPECI MEN CLOTT ED. Not Available [facility] (Lab) [address] [place], [address], 01/27/2023 20:40:33 01/28/20 23 01/27/2023 TSH thyroid-stim ulating hormone 1.350 uIU/m L 0.465- 4.680 Not Available [facility] (Lab) [address] [place], [address], 01/27/2023 20:47:22 01/28/20 23 01/27/2023 VITAM IN B12 (JAKUB RITU ) vb12 >1000 pg/mL 239-93 1 high Not Available [facility] (Lab) [address] [place], [address], 01/27/2023 22:24:05 01/28/20 23 01/27/2023 FOLAT E, SERUM /PLAS MA folate 8.47 NG/mL 2.76-2 0.0 Not Available [facility] (Lab) [address] [place], [address], 01/27/2023 22:24:23 10/20/19 23 10/19/2022 US, doppl er, venou s No observ ation record ed. [email or web address] [facility] [address], [place], [address], 11/04/2022 17:12:48 10/20/19 23 10/19/2022 US, echoc ardio gram No observ ation record ed. [email or web address] [facility] [address], [place], [address], 11/04/2022 17:14:30 11/05/19 23 XR, chest , 2 view [facility] [address] [place] [address] Patien t Name: RAHAT ASHLEY ion #: [id number] Sex: M : 1935 9 Dictat [...] 2022 19:34: 49 PM Page 1 [email or web address] [facility] ([facility]) [address] [place], [address], 11/09/2022 14:29:49 03/14/19 24 03/14/2023 XR, chest , 2 view No observ ation record ed. [address] [facility], [place], [address], 03/15/2023 19:10:45 03/14/19 24 03/14/2023 CT, brain , w/o contr ast No observ ation record ed. [address] [facility], [place], [address], 03/15/2023 19:10:54 03/14/19 24 03/14/2023 CT, abdom en + pelvi s, w/o contr ast No observ ation record ed. [address], [place], [address], 03/21/2023 16:14:10 03/15/19 24 03/15/2023 josh cardenas ow study No observ ation record ed. [address], [place], [address], 03/21/2023 16:14:20 03/15/19 24 03/15/2023 MRI, brain , w/o contr ast No observ ation record ed. [address], [place], [address], 03/21/2023 16:14:54 04/05/19 24 04/05/2023 XR, chest No observ ation record ed. [address], [place], [address], 04/12/2023 13:14:07 04/05/19 24 04/05/2023 CT, abdom en + pelvi s, w/ contr ast No observ ation record ed. [address], [place], [address], 04/12/2023 13:14:21 04/05/19 24 04/05/2023 XR, chest No observ ation record ed. [address], [place], [address], 04/12/2023 13:14:34 04/07/19 24 04/07/2023 XR, chest No observ ation record ed. [address], [place], [address], 04/12/2023 14:15:23 04/08/19 24 04/08/2023 XR, chest No observ ation record ed. [address], [place], [address], 04/12/2023 14:31:54 04/08/19 24 04/08/2023 XR, chest No observ ation record ed. [address], [place], [address], 04/12/2023 14:32:11 04/08/19 24 04/08/2023 , [facility] ardio gram No observ ation record ed. [address], [place], [address], 04/12/2023 14:33:17 04/09/19 24 04/09/2023 XR, chest No observ ation record ed. [address], [place], [address], 04/12/2023 14:35:58 04/10/19 24 04/10/2023 XR, chest No observ ation record ed. [address], [place], [address], 04/13/2023 11:21:04 04/11/19 24 04/11/2023 XR, chest No observ ation record ed. [address] [facility], [place], [address], 04/13/2023 11:22:03 04/13/19 24 04/13/2023 XR, chest No observ ation record ed. [address] [facility], [place], [address], 04/20/2023 15:53:19 04/14/19 24 04/14/2023 XR, chest No observ ation record ed. [address] [facility], [place], [address], 04/20/2023 15:53:20 04/14/19 24 04/14/2023 US, retro perit oneum No observ ation record ed. [address] [facility], [place], [address], 04/20/2023 15:53:20 05/23/19 24 05/23/2023 josh theodore study No observ ation record ed. [address] [facility], [place], [address], 05/28/2023 16:28:16 05/27/19 24 05/23/2023 josh theodore study No observ ation record ed. [address] [facility], [place], [address], 05/28/2023 14:48:02 02/09/20 24 XR, hand No observ ation record ed. [email or web address] [facility] [address], [place], [address], 02/09/2024 14:10:17 Result Notes None recorded. Problems Name Problem SNOMED Code Status Onset Date Resolution Date Notes Provider Name and Address Organization Details Recorded Time Edema of lower extremity 359982413 Active 2019 Not Available [facility] 3 07:25:54 Trigger finger of left hand 0349422659767 9107 Active 2021 Not Available [employer] 3 07:25:54 Trigger finger of right hand 6049777510582 9101 Active 2021 Not Available [facility] 3 07:25:54 Plantar fasciitis of right foot 0548720606903 9101 Active 2019 Not Available [facility] 3 07:25:54 Hyperchole sterolemia 64276291 Active 2016 Not Available [facility] 3 07:25:54 Ingrowing nail of toe of left foot 7422995527697 9107 Active 2022 Not Available [facility] 3 07:25:54 Dry skin 74730538 Active 2021 Not Available [facility] 3 07:25:54 Insomnia 491201570 Active 2017 Not Available [facility] 3 07:25:54 Anxiety disorder 501277240 Active Not Available [facility] 3 07:25:54 Abdominal pain 77848600 Active Not Available [facility] 3 07:25:54 Gastroesop hageal reflux disease 918742263 Active Not Available [facility] 3 07:25:54 Sodium deficiency 929851501 Active Not Available [facility] 3 07:25:54 Edema 745520279 Active Not Available [facility] 3 07:25:54 Pure hyperchole sterolemia 605438372 Active Not Available [facility] 3 07:25:54 Pain in toe 705651473 Active Not Available [facility] 3 07:25:54 Pain of toe of left foot 1074763534148 08 Active 2020 Not Available [facility] 3 07:25:54 Acquired trigger finger of right middle finger 0621454224655 05 Active 2021 Not Available [facility] 3 07:25:54 Arthritis 2294471 Active 2016 Not Available [facility] 3 07:25:54 Hypertensi ve disorder 44546121 Active 2016 Not Available [facility] 3 07:25:54 Ingrowing toenail 229623728 Active 2021 Not Available [facility] 3 07:25:54 Onychomyco sis 503669367 Active 2018 Not Available [facility] 3 07:25:54 Chronic peripheral venous hypertensi on 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 Active 2021 Not Available [facility] 3 07:25:54 Hypokalemi a 26928907 Active 2021 Not Available [facility] 3 07:25:54 Hand pain 76960910 Active 2021 Not Available [facility] 3 07:25:54 Contusion of toe 19649586 Active 2020 Not Available [facility] 3 07:25:54 Essential hypertensi on 36172869 Active Not Available [facility] 3 07:25:54 COVID-19 778752503 Active 2021 Not Available [facility] 3 07:25:54 Dystrophia unguium 88972179 Active 2022 Not Available [facility] 3 07:25:54 Hyponatrem ia 16711751 Active 2016 Not Available [facility] 3 07:25:54 Bilateral hearing loss 55029247 Active 2021 Not Available [facility] 3 07:25:54 Peripheral venous insufficie ncy 85599337 Active 2022 Not Available [facility] 3 07:25:54 Lymphedema of lower extremity 266778579 Active 2022 Not Available [facility] 3 07:25:54 Ulcer of lower extremity 24987931 Active 2022 Not Available [facility] 3 07:25:54 Persistent cough 462871446 Active 2022 Not Available [facility] 3 07:25:54 Cough 65360227 Active 2022 Not Available [facility] 3 07:25:54 Fatigue 71995352 Active 2022 Not Available [facility] 3 07:25:54 Memory impairment 374596906 Active 2022 Not Available [facility] 3 07:25:54 Muscle weakness 61704298 Active 2023 RAYMOND Montesinos, [facility] [employer] [facility] 4 12:11:53 Impacted cerumen of bilateral ears 5603678715376 108 Active 2023 Debbie Bliss, [facility] [address], [address] , [facility] [employer] [facility] 4 10:25:49 Hand pain 55761088 Active [address], [facility] [employer] [facility] 4 13:34:32 Notes:Some problems listed i n Document: #[id number] could not be added to this patient's chart. Please review this document and add these problems to the patient's chart manually as needed. Problem Notes None recorded. Procedures Surgical History Date Name Laterality Status Provider Name and Address Organization Details Recorded Time 11/18/19 Wound Care-Podiatry completed Gary Lee RN [facility] [employer] [facility] 11/17/2022 15:45:29 10/21/19 Wound Care-Podiatry completed Sally Kilgore RN [facility] [employer] [facility] 10/20/2022 15:12:18 08/23/20 23 Wound Care-Podiatry completed Gary Lee RN [facility] [employer] [facility] 10/13/2022 16:43:47 07/30/19 Nail Debridement completed Alexei Mendez DPM [address], [facility] [address], [place], [address], [place] [facility] [employer] [facility] 08/05/2022 13:06:25 06/04/19 17 Cataract Surgery completed Not Available [facility] 02/2022 00:54:26 03/20/19 14 Colonoscopy completed Not Available [facility] 04/22/19 00:54:26 Tonsillectomy and/or Adenoidectomy completed Not Available [facility] 04/21/2022 00:54:26 Imaging Results Imaging Date Name Status LastModified by Organization Details LastModified Time 10/19/2022 US, doppler, venous completed [email or web address] [facility] [address], [place], [address], 11/04/2022 17:12:48 10/19/2022 US, echocardiogram completed [email or web address] [facility] [address], [place], [address], 11/04/2022 17:14:30 11/04/2022 XR, chest, 2 view completed [email or web address] [facility] (Imaging) [address], [place], [address], 11/09/2022 14:29:49 03/14/2023 XR, chest, [address], [address], 03/15/2023 19:10:45 03/14/2023 CT, brain, w/o contrast completed [address], [address], 03/15/2023 19:10:54 03/14/2023 CT, abdomen + pelvis, w/o contrast completed [address], [address], 03/21/2023 16:14:10 03/15/2023 barium swallow study completed [address], [place], [address], 03/21/2023 16:14:20 03/15/2023 MRI, brain, w/o contrast completed [address] [address], [place], [address], 03/21/2023 16:14:54 04/05/2023 XR, chest completed [address] [address], [place], [address], 04/12/2023 13:14:07 04/05/2023 CT, abdomen + pelvis, w/ contrast completed [address] [address], [place], [address], 04/12/2023 13:14:21 04/05/2023 XR, chest completed [address] [address], [place], [address], 04/12/2023 13:14:34 04/07/2023 XR, chest completed [address] [address], [place], [address], 04/12/2023 14:15:23 04/08/2023 XR, chest completed [address] [address], [place], [address], 04/12/2023 14:31:54 04/08/2023 XR, chest completed [address] [address], [place], [address], 04/12/2023 14:32:11 04/08/2023 US, echocardiogram completed [address] [address], [place], [address], 04/12/2023 14:33:17 04/09/2023 XR, chest completed [address], [place], [address], 04/12/2023 14:35:58 04/10/2023 XR, chest completed [address] [facility], [place], [address], 04/13/2023 11:21:04 04/11/2023 XR, chest completed [address] [place] [address], [address], 04/13/2023 11:22:03 04/13/2023 XR, chest completed [address] [place] [address], [address], 04/20/2023 15:53:19 04/14/2023 XR, chest completed [address], [address], 04/20/2023 15:53:20 04/14/2023 US, retroperitoneum completed [address] [place] [address], [address], 04/20/2023 15:53:20 05/23/2023 barium swallow study completed [address], [address], 05/28/2023 16:28:16 05/23/2023 barium swallow study completed [address] [place] [address], [address], 05/28/2023 14:48:02 02/09/2024 XR, hand completed [email or web address] [facility] [address] [facility] [address], [place], [address], 02/09/2024 14:10:17 Procedure Notes None recorded. Medical [...] by injectio n route. 2023 active [facility]: [id number] 4-20 Not Available Not Available Not [...] ne propionat e 50 mcg/actua tion nasal spray,[facility] 04/08 completed Not Available Not Available Not Available sertralin e 50 mg tablet active Not Available Not Available Not Available divalproe x 125 mg capsule,d elayed release sprinkle active Not Available Not Available Not Available tobramyci n 0.3 %-dexamet hasone 0.1 % eye drops,[facility] 04/08 completed Not Available Not Available [...] injection solution in office 11/04 completed [facility] [id number] 05-22 Not Available Not Available Not Available [...] Updated DateTime 3 167.64 cm 31.3 kg/m2 56149.9 2 g 97.9 [degF] 59 /min 118 mm[Hg] 74 mm[Hg] Suzanna [place] [facility] [employer] [facility] 3 14:45:34 Date Recorded Body height Heart rate Oxygen saturation Oxygen saturation in Arterial blood by Pulse oximetry Body temperature Systolic blood pressure Diastolic blood pressure Provider Name and Address Organization Details Last Updated DateTime 3 167.64 cm 58 /min 96 % 96 % 97.8 [degF] 129 mm[Hg] 66 mm[Hg] Gary Lee RN [facility] [employer] [facility] 3 15:37:13 Date Recorded Body height Body mass index (BMI) Body weight Body temperature Heart rate Systolic blood pressure Diastolic blood pressure Provider Name and Address Organization Details Last Updated DateTime 3 167.64 cm 31.5 kg/m2 88405.5 1 g 97.7 [degF] 60 /min 124 mm[Hg] 70 mm[Hg] Suzanna Braxton [place] [facility] [employer] [facility] 3 15:04:39 Date Recorded Body height Body mass index (BMI) Body weight Body temperature Provider Name and Address Organization Details Last Updated DateTime 11/02/2023 167.64 cm 29.1 kg/m2 47811.63 g 98.3 [degF] Mana Hernandez [facility] [employer] [facility] 11/02/2023 10:06:54 Date Recorded Body height Body mass index (BMI) Body weight Provider Name and Address Organization Details Last Updated DateTime 02/09/2024 167.64 cm 29.1 kg/m2 79621.63 g [employer] [facility] [employer] [facility] [employer] 02/09/2024 13:41:48 Social History Question Answer Notes LastModified by Organization Details LastModified Time Tobacco Smoking Status Former Smoker Not Available [facility] 04/21/2022 00:52:21 Do You Have An Advance Directive? No [id number] Information not available 04/21/2022 What Is Your Level Of Alcohol Consumption? Moderate Patient Reported One Mixed Drink A Night. [id number] Information not available 04/21/2022 Are You Blind Or Do You Have Difficulty Seeing? No [id number] Information not available 04/21/2022 What Is Your Level Of Caffeine Consumption? Moderate [id number] Information not available 04/21/2022 How Much Tobacco Do You Chew? None [id number] Information not available 04/21/2022 In The 14 Days Before Symptom Onset, Have You Had Close Contact With A Laboratory-conf irmed COVID-19 While That Case Was Ill? No MIGRATION.030 [id number] Information not available 04/21/2022 In The 14 Days Before Symptom Onset, Have You Had Close Contact With A Person Who Is Under Investigation For COVID-19 While That Person Was Ill? No [id number] Information not available 04/21/2022 Are You Currently Employed? No [email or web address] Information not available 06/01/2022 Are You Deaf Or Do You Have Serious Difficulty Hearing? Yes Patient Wears Bilateral Hearing Aids; Still Having A Hard Time Hearing [email or web address] Information not available 06/01/2022 What Type Of Diet Are You Following? REGULAR MIGRATION.030 [id number] Information not available 04/21/2022 Which Illicit Or Recreational Drugs Have You Used? None [id number] Information not available 04/21/2022 Do You Or Have You Ever Used E-cigarettes Or Vape? Never Used Electronic Cigarettes [id number] Information not available 04/21/2022 What Is The Highest Grade Or Level Of School You Have Completed Or The Highest Degree You Have Received? [id number] MIGRATION.030 [id number] Information not available 04/21/2022 What Is Your Occupation? RETIRED [id number] Information not available 04/21/2022 How Many Days Of Moderate To Strenuous Exercise, Like A Brisk Walk, Did You Do In The Last 7 Days? 0 MIGRATION.030 [id number] Information not available 04/21/2022 Have There Been Any Changes To Your Family Or Social Situation? No MIGRATION.030 923500 Information not available 04/21/2022 What Is The Fluoride Status Of Your Home? Unknown MIGRATION.030 283521 Information not available 04/21/2022 When Did You Quit Smoking? 16+yearssincelastc igarette MIGRATION.0301 [id number] Information not available 04/21/2022 Are There Any Guns Present In Your Home? No MIGRATION.0301 737046 Information not available 04/21/2022 Do You Use Insect Repellent Routinely? No MIGRATION.0301 928351 Information not available 04/21/2022 Where Do You Live? SingleLevelHouse MIGRATION.0301 673924 Information not available 04/21/2022 Do You Have A Medical Power Of Well Testing Operator? No MIGRATION.0301 997684 Information not available 04/21/2022 What Was The Date Of Your Most Recent Tobacco Screening? 01/27/2023 [email or web address] Information not available 01/27/2023 Have You Ever Been Counseled For Unhealthy Alcohol Use? No MIGRATION.0301 702248 Information not available 04/21/2022 Do You Have Any Pets? No MIGRATION.0301 333786 Information not available 04/21/2022 What Is Your Relationship Status? MIGRATION.0301 215466 Information not available 04/21/2022 Do You Use Your Seat Belt Or Car Seat Routinely? Yes MIGRATION.0301 452247 Information not available 04/21/2022 Do You Have Smoke And Carbon Monoxide Detectors In Your Home? Yes MIGRATION.0301 893273 Information not available 04/21/2022 Are You Passively Exposed To Smoke? Yes MIGRATION.0301 337135 Information not available 04/21/2022 Do You Or Have You Ever Used Smokeless Tobacco? Never Used Smokeless Tobacco MIGRATION.0301 002205 Information not available 04/21/2022 Are There Any Smokers In Your House? No MIGRATION.0301 719166 Information not available 04/21/2022 How Much Tobacco Do You Smoke? No MIGRATION.0301 685936 Information not available 04/21/2022 What Types Of Sporting Activities Do You Participate In? None MIGRATION.0301 682114 Information not available 04/21/2022 Do You Feel Stressed (tense, Restless, Nervous, Or Anxious, Or Unable To Sleep At Night)? [id number] MIGRATION.0301 267030 Information not available 04/21/2022 Do You Use Any Illicit Or Recreational Drugs? No MIGRATION.0301 263636 Information not available 04/21/2022 Do You Use Sunscreen Routinely? No MIGRATION.0301 386515 Information not available 04/21/2022 Has Tobacco Cessation Counseling Been Provided? No MIGRATION.0301 404383 Information not available 04/21/2022 Have You Recently Traveled Abroad? No MIGRATION.0301 019793 Information not available 04/21/2022 Do You Have Any Dietary Restrictions? No MIGRATION.0301 414362 Information not available 04/21/2022 Do You Or Have You Ever Used Any Other Forms Of Tobacco Or Nicotine? No MIGRATION.0301 682912 Information not available 04/21/2022 Sex: Male Functional Status Question Answer Note LastModified by [employer] Details LastModified Time Do you have difficulty walking or climbing stairs? Yes MIGRATION.9023561 026 Information not available 04/21/2022 Do you have transportation difficulties? No MIGRATION.8823855 026 Information not available 04/21/2022 Are you able to walk? YESWOREST MIGRATION.6377547 026 Information not available 04/21/2022 Do you have difficulty doing errands alone? Yes MIGRATION.2897059 026 Information not available 04/21/2022 Are you able to care for yourself? Yes MIGRATION.1018489 026 Information not available 04/21/2022 Do you have difficulty dressing or bathing? No MIGRATION.7124298 026 Information not available 04/21/2022 What is your exercise level? None MIGRATION.0313906 026 Information not available 04/21/2022 Mental Status Question Answer Note LastModified by Organizat ion Details LastModified Time Do you have difficulty concentrating, remembering or making decisions? Yes MIGRATION.[id number] 6 Information not available 04/21/2022 Family History Relationship Description Onset Age of this Age Resolved Age Notes LastModified by Organization Details LastModified Time Mother Myocardial infarction 69 MIGRATION.724 [id number] Not available 04/21/2022 00:54:34 Father Alzheimer's disease 75 MIGRATION.015 [id number] Not available 04/21/2022 00:54:34 Brother Cerebrovascu lar accident 78 MIGRATION.201 [id number] Not available 04/21/2022 00:54:34 Brother Alzheimer's disease deceas ed MIGRATION.259 4442714 Not available 04/21/2022 00:54:34 Brother Myocardial infarction MIGRATION.228 0319830 Not available 04/21/2022 00:54:34 Unspecified Relation Family history of Hypertension MIGRATION.635 3500009 Not available 04/21/2022 00:54:34 Son Atrial fibrillation [email or web address] Not available 0 11/04/2022 14:44:06 Notes:NO ENT Medical History Condition Response NERVE DISEASE N BLINDNESS N RHEUMATIC FEVER N KIDNEY STONES N BLADDER PROBLEMS N MRSA N OTHER # 1 Y POLIO N LUNG DISEASE/DISORDER Y RADIATION / CHEMOTHERAPY N COPD N Other # 2 N BLOOD DISEASES [...] HAVE YOU BEEN HOSPITALIZED OR SEEN IN [facility] IN THE PAST YEAR ? Y [...] high-dose, trivalent, PF 7 completed Not Available [facility] 03/30[facility]23 07:12:14 Influenza, split virus, trivalent, preservative 6 completed Not Available [facility] 03/30/2023 07:12:14 COVID-19, mRNA, LNP-S, PF, 30 mcg/0.3 mL dose 1 completed Not Available [facility] 03/30/2023 07:12:14 COVID-19, mRNA, LNP-S, PF, 30 mcg/0.3 mL dose 1 completed Not Available [facility] 03/30/2023 07:12:14 influenza, unspecified formulation 5 completed Not Available [facility] 03/30/2023 07:12:14 Influenza, high-dose, quadrivalent, PF 2 completed Not Available [facility] 03/30/2023 07:12:14 Influenza, high-dose, quadrivalent, PF 0 completed Not Available [facility] 03/30/2023 07:12:14 Influenza, high-dose, trivalent, PF 8 completed Not Available [facility] 03/30/2023 07:12:14 Past Encounters Encounter ID Performer Location Encounter Start Date Encounter Closed Date Diagnosis/Indication Diagnosis SNOMED-CT Code Diagnosis ICD10 Code Diagnosis Note [id number] [facility] [place] [address] [place] [address] 05/05/2020 00:00:00 05/06/2020 13:22:32 [id number] [facility] [facility] [address] [place] [address] 05/20/2020 00:00:00 05/20/2020 22:01:12 [id number] [facility] [place] [address] [place] [address] 06/19/2020 00:00:00 06/20/2020 11:09:14 [id number] [facility] [place] [address] [place] [address] 09/18/2020 00:00:00 09/18/2020 21:47:59 [id number] [facility] [place] [address] [place] [address] 09/29/2020 00:00:00 09/30/2020 16:57:27 [id number] [facility] [place] [address] [place] [address] 12/01/2020 00:00:00 12/02/2020 13:10:32 [id number] [facility] [place] [address] [place] [address] 02/02/2021 00:00:00 02/08/2021 20:10:35 [id number] [facility] [place] [address] [facility] [address] , [place] [address] 04/02/2021 00:00:00 04/26/2021 10:03:37 [id number] [facility] [place] [address] [place] [address] 05/11/2021 00:00:00 05/12/2021 10:26:43 [id number] [facility] [place] [address] [place] [address] 07/02/2021 00:00:00 07/05/2021 15:53:49 [id number] [facility] [place] [address] [facility] [address] , [place] [address] 07/23/2021 00:00:00 08/24/2021 22:02:14 [id number] [facility] [place] [address] [place] [address] 10/01/2021 00:00:00 10/01/2021 14:43:32 [id number] [facility] [place] [address] [place] [address] 10/20/2021 00:00:00 10/20/2021 17:22:01 [id number] [facility] [place] [address] [place] [address] 11/24/2021 00:00:00 11/24/2021 17:27:23 [id number] [facility] [address] [facility] [address] , [place] [address] 12/01/2021 00:00:00 12/01/2021 18:04:03 [id number] [facility] [place] [address] [place] [address] 01/04/2022 00:00:00 01/04/2022 15:12:23 [id number] [facility] [place] [address] [place] [address] 03/08/2022 00:00:00 03/21/2022 17:27:24 [id number] Chadwick Argueta MD [facility] [address] [facility] [address] , [place] [address] 06/01/2022 15:23:51 06/01/2022 16:45:45 Diabetes mellitus 96657081 E11.9 Essential hypertension 17135921 I10 Edema 169326676 R60.9 Hyponatremia 61173346 E8 7.1 Insomnia 689122818 G47.0 0 [id number] Alexei Mendez DPM [facility] [place] [address] [place] [address] 07/29/2022 15:30:12 08/05/2022 15:15:30 Dystrophia unguium 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 Nails were debrided and greater than 50% length and thickness where needed. Unable to cut own toenails 879410628 Z74.1 [id number] Tariq Urias MD [facility] [place] [address] [place] [address] 08/31/2022 14:13:53 08/31/2022 14:52:18 Acquired trigger finger of right middle finger [id number] 60962 M65.331 Hand pain 02862374 M79.6 43 Trigger fi nger of right hand [id number] 6996244 M65.30 discussed treatment options. Sterile technique and standard protocol injected 1 cc of xylocaine and 1 cc of Kenalog into the right long and right ring finger tendon sheath. Patient has about a 70% chance of improvemen t over the next 6 weeks. No improvemen t on him see Dr. Guo down at the [facility] office. [id number] Alexei Mendez DPM [facility] [address] [place] [address] 10/13/2022 16:00:47 10/13/2022 17:10:02 Peripheral venous insufficiency 83316250 I87.2 follow up vascular [place] [facility] [place] venous ultrasound with [facility]- return to the office for nurse visit on Tuesday for compressio n dressing after venous ultrasound Lymphedema of lower extremity 903985716 I89.0 recommend chronic compressio n therapycon tinue furosemide Ulcer of l ower extremity 66789006 L97.909 compressio n therapy with multilayer Profore dressing applied to the right lower extremityg entian katelin and compressio n dressing applied to the lower extremityk eep dressings clean and dry for 1 week [id number] Alexei Mendez DPM [facility] [address] [place] [address] 10/20/2022 14:53:33 10/20/2022 15:23:58 Ulcer of lower extremity 89174408 L97.909 compressio n therapy with multilayer Juan and Tubigrip dressing applied to the right lower extremityg entian katelin and compressio n dressing applied to the lower extremityk eep dressings clean and dry for 1 week Peripheral venous insufficiency 39767452 I87.2 follow up vascular recommenda tionsUpcom ing vascular venous ultrasound with [facility]- return to the office for nurse visit on Tuesday for compressio n dressing after venous ultrasound Lymphedema of lower extremity 116191647 I89.0 recommend chronic compressio n therapycon tinue furosemide [id number] Chadwick Argueta MD [facility] [place] [address] [place] [address] Dr. [facility] [place] [address] 11/04/2022 14:25:33 11/04/2022 15:36:25 Cough 84736763 R05.9 Insomnia 218269668 G47.0 0 Anxiety disorder 1029786 06 F41.9 Essential hypertension 95070340 I10 [id number] Alexei Mendez DPM [facility] [address] [place] [address] 11/17/2022 15:36:09 11/17/2022 16:20:59 Ulcer of lower extremity 53020802 L97.909 healededuc ated on compressio n socksRecom mend daily use of compressio n to prevent swelling and recurrence of woundsFoll ow-up in 2-3 months for routine foot care Peripheral venous insufficiency 33221060 I87.2 follow up vascular recommenda tions Lymphedema of lower extremity 235843289 I89.0 recommend chronic compressio n therapycon tinue furosemide [id number] Chadwick Argueta MD [facility] [place] [address] [facility] , [facility] [place] [address] 01/27/2023 14:55:29 01/27/2023 16:17:33 Cough 67985889 R05.9 Fatigue 34463997 R53.83 Essential hypertension 20853316 I10 Insomnia 451515434 G47.0 0 Hyponatremia 40543722 E8 7.1 [id number] DEEPIKA Houser [facility] [place] [address] [place] [address] 11/02/2023 09:58:15 11/02/2023 14:27:16 Impacted cerumen of bilateral ears 7398132153 723736 H61.23 [id number] EUGENIA Wooten [facility] [place] [address] [place] [address] 02/09/2024 13:24:06 02/09/2024 14:02:05 Acquired trigger finger of right middle finger 2203434354 58365 M65.331 Hand pain 93634099 M79.6 43 Health Concerns Section Related Observation LastModified by Organization Detai ls LastModified Time None Recorded Concern Status LastModified by Organization Details LastModified Time None Recorded Advance Directives Directive N: Payers Encounter Date Sequence Insurance Name Policy Number Policy Thomas Covered Member ID Thomas Member ID Guarantor Name 11/04/2022 1 [facility]IC[facility] B[facility] Rahat Angel Albert [id number] Rahat Angel Albert 11/04/2022 2 [place] [id number] Rahat Angel Albert [id number] Rahat Angel Albert 11/17/2022 1 [facility]IC[facility] B[facility] Rahat Angel Albert [id number] Rahat Angel Albert 11/17/2022 2 [place] [id number] Rahat Angel Albert [id number] Rahat Angel Albert 01/27/2023 1 MEDICARE B: [facility] Rahat Angel Albert [id number] Rahat Angel Albert 01/27/2023 2 [place] [id number] Rahat Angel Albert [id number] Rahat Angel Albert 11/02/2023 1 MEDICARE B: [facility] Rahat Angel Albert [id number] Rahat Angel Albert 11/02/2023 2 [place] [id number] Rahat Angel Albert [id number] Rahat Angel Albert 02/09/2024 1 MEDICARE B: [facility] Rahat Angel Albert [id number] Rahat Angel Albert 02/09/2024 2 [place] [id number] Rahat Angel Albert [id number] Rahat Angel Albert Notes Date Note Type Note Provider Name and Address Organization Details Recorded Time 3 text/html insomnia stableHypertension doing fine no headache no dizzinessHyperglycemia glucose intolerance needs V8cDcsllosmtccl needs blood workObesity realistically he has not lose weightCough for about a week Chadwick Argueta MD [address], [place], [address], [facility] [employer] [facility] [employer] 11/07/2022 15:21:44 3 text/html . Patient is an 87-year-old male who presents to the office with a healed wound to the posterior right lower leg. Patient denies any new wounds or signs of infection. Patient was encouraged to continue Compression to the lower leg secondary to swelling to prevent recurrence. Alexei Mendez DPM [address], [place], [address], [facility] [employer] [facility] [employer] 11/17/2022 16:13:09 3 text/html insomnia stableHypertension doing fine no headache no dizzinessHyperglycemia glucose intolerance needs B6cQicdzhskwdwm needs blood workObesity realistically he has not lose weightCough for about a week got better it has recurred in the last couple weeks there has not been any problems with coughing with eating Chadwick Argueta MD [address], [address], [place], [address], [facility] [employer] [facility] [employer] 01/28/2023 10:40:58 4 text/html This patient has [...] does have significant dementia. DEEPIKA Houser [address], [facility] [address], [place], [address], [facility] [employer] 11/02/2023 10:37:51 4 text/html The patient is [...] He also has dementia and is a jail resident. He is not a great candidate [...] today with the patient. EUGENIA Wooten [address] [facility], [facility] [address], [place], [address], [place] [facility] 02/09/2024 14:11:15
--- NOTE | 2024-05-17 14:50 | ED.GENADULT ---
HPI - General Adult General Chief complaint: Fall Stated complaint: fall History of Present Illness HPI narrative: This is an 89-year-old male with history of severe dementia presenting after a fall from a ground to the ground. Patient was laying on his floor mat in his room when he lifted himself up then fell striking his head on the ground. Patient has severe dementia cannot provide any meaningful history. He does have a small bruise on his forehead and a small cut on the bridge of his nose. His is at bedside. Related Data Allergies Allergy/AdvReac Type Severity Reaction Status Date / Time No Known Allergies Allergy Verified 05/17/24 13:36 [facility] Past Medical History Medical History Acute embolism and thrombosis of unspecified deep veins of right lower extremity Generalized anxiety disorder Unspecified dementia, unspecified severity, with mood disturbance MRSA (methicillin resistant Staphylococcus aureus) colonization Encephalopathy acute Age-related macular degeneration, wet, left eye Glaucoma BPH (benign prostatic hyperplasia) Essential hypertension Hyperlipidemia Dementia Hearing loss Macular degeneration Chronic kidney disease Depression GERD (gastroesophageal reflux disease) Glaucoma Chronic anticoagulation BPH (benign prostatic hyperplasia) Essential hypertension Dementia Surgical History Surgical History Status post cataract extraction of both eyes with insertion of intraocular lens Family History Family History Mother Cerebrovascular accident Father Alzheimer dementia Sibling Acute myocardial infarction Cerebrovascular accident Chronic obstructive pulmonary disease Mother Hypertension Acute myocardial infarction Sibling , 2021 Alzheimer dementia Social History Social History Social History: Code status: DNR/DNI Surrogate decision maker: Anny Price () Smoking status: Former smoker Alcohol intake: former Substance use: never Substance use type: does not use Do You Feel Safe in your Home?: Yes Lack of Transportation: No Lack of Food: Never True Current Housing: I Have Housing Concerned About Future Housing: No Difficulty Paying Gas/Electric Bills: No Difficulty Paying for Meds: YES Currently Unemployed: No Education: Bachelor's Degree Difficulty w/ Childcare or Family Care: No Living arrangements: fdc Additional living arrangements comments: [facility] Occupation/Education: retired 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 Patient is lying in bed, his eyes were closed, he wakes up to physical touch, he cannot hear answer questions Head: atraumatic. EYES: EOMI, NOSE: Atraumatic NECK: Trachea midline RESPIRATORY: No increased rate of breathing CTAB CARDIOVASCULAR: RRR, no peripheral edema ABDOMINAL: Non-distended soft nontender MUSCULOSKELETAl: No obvious deformities NEURO: Somnolent, moving 4 limbs to stimulus SKIN:: Warm, dry. Normal color PSYCHIATRIC: Normal affect Course Vital Signs Vital signs: Vital Signs Temperature 98.6 F 05/17/24 13:29 Pulse Rate 62 05/17/24 13:29 Respiratory Rate 18 05/17/24 13:29 Blood Pressure 117/65 05/17/24 13:29 Pulse Oximetry 96 05/17/24 13:29 Oxygen Delivery Room Air 05/17/24 13:29 Temperature 98.6 F 05/17/24 13:29 Pulse Rate 62 05/17/24 13:29 Respiratory Rate 18 05/17/24 13:29 Blood Pressure 117/65 05/17/24 13:29 Pulse Oximetry 96 05/17/24 13:29 Oxygen Delivery Room Air 05/17/24 13:29 Medical Decision Making MDM Narrative Medical decision making narrative: -Course: 81-year-old male with severe dementia presenting after fall off of his floor mat on to the ground. He does have a small hematoma over his forehead. CT head and C-spine negative for acute bleed or traumatic injury. His is at bedside. I discussed whether we should do a more invasive workup including metabolic and infectious studies and she has declined. She says over last year his condition has continued to deteriorate (bedbound, essentially non-verbal, severe dementia symptoms) and She does ot want to pursue more invasive testing at this time. He will be discharged back to fdc return if he develops any new or worsening symptoms. -DDX includes but is not limited to: Intracranial hemorrhage, concussion, dementia, sundowning, sepsis UTI dehydration -Co-morbidities complicating care: Severe dementia, anticoagulation Vital Signs Vital Signs: Vital Signs Temperature 98.6 F 05/17/24 13:29 Pulse Rate 62 05/17/24 13:29 Respiratory Rate 18 05/17/24 13:29 Blood Pressure 117/65 05/17/24 13:29 Pulse Oximetry 96 05/17/24 13:29 Oxygen Delivery Room Air 05/17/24 13:29 Temperature 98.6 F 05/17/24 13:29 Pulse Rate 62 05/17/24 13:29 Respiratory Rate 18 05/17/24 13:29 Blood Pressure 117/65 05/17/24 13:29 Pulse Oximetry 96 05/17/24 13:29 Oxygen Delivery Room Air 05/17/24 13:29 Discharge Plan Discharge Clinical Impression: Fall, Dementia Patient Disposition: Home, Self-Care Condition: Stable Instructions: Antibiotic Form, Intracerebral Hemorrhage (DC) Additional Instructions: Christiano was seen after a fall. CT Head and C-spine were negative for acute traumatic injuries. If he develops any new or worsening symptoms or his family to be re-evaluated he can return to the ED for re-evaluation. Patient Language: Lebanese Prescriptions: No Action amoxicillin-pot clavulanate [Augmentin] 500-125 mg Tablet 1 tablet PO Q12HR Qty: 11 0RF buspirone 5 mg tablet 5 mg PO TID Qty: 90 0RF trazodone 50 mg tablet 50 mg PO HS Qty: 30 0RF atorvastatin 10 mg tablet 10 mg PO QPM Qty: 30 0RF famotidine 20 mg tablet 20 mg PO Q12H Qty: 60 0RF tamsulosin 0.4 mg capsule 0.4 mg PO Q24H Qty: 3 0RF metoprolol tartrate 50 mg tablet 50 mg PO Q12H Qty: 60 0RF sertraline 50 mg tablet 50 mg PO Q24H Qty: 3 0RF divalproex [Depakote Sprinkles] 125 mg capsule, delayed rel sprinkle 125 mg PO Q8H Qty: 90 0RF acetaminophen 500 mg capsule 1,000 mg PO Q6H PRN (Reason: fever or pain) Qty: 60 0RF brimonidine-timolol 0.2-0.5 % drops 1 drp ophthalmic (eye) HS Qty: 3 0RF brimonidine-timolol 0.2-0.5 % drops 1 drp LEFT EYE Q12H Qty: 3 0RF Eliquis 5 mg tablet 5 mg PO Q12H Qty: 60 0RF PreserVision AREDS-2 1 cap PO DAILY Qty: 30 0RF Follow-up/Referrals: Kb,MD Seb [Primary Care Provider] -
--- NOTE | 2024-05-17 17:55 | PC.NURSE ---
Dinner tray provided for pt.
--- NOTE | 2024-05-17 18:30 | PC.NURSE ---
assisted patient with eating his dinner. patient was able to eat a small portion before falling back to sleep.
== END 2024-05-17 19:00 | disposition home or self-care (01) ==
PROVIDERS: Emergency Provider Emergency Medicine; PCP Internal Medicine
DX: S00.83XA Contusion of other part of head, initial encounter (principal); F03.90 Unspecified dementia, unspecified severity, without behavioral disturbance, psychotic disturbance, mood disturbance, and anxiety; I12.9 Hypertensive chronic kidney disease with stage 1 through stage 4 chronic kidney disease, or unspecified chronic kidney disease; N18.9 Chronic kidney disease, unspecified; E78.5 Hyperlipidemia, unspecified; N40.0 Benign prostatic hyperplasia without lower urinary tract symptoms; H35.30 Unspecified macular degeneration; H40.9 Unspecified glaucoma; F41.1 Generalized anxiety disorder; Z66 Do not resuscitate; Z86.14 Personal history of Methicillin resistant Staphylococcus aureus infection; Z87.891 Personal history of nicotine dependence; Z86.711 Personal history of pulmonary embolism; Z96.1 Presence of intraocular lens; Z98.42 Cataract extraction status, left eye; Z98.41 Cataract extraction status, right eye; Z79.899 Other long term (current) drug therapy; Z79.01 Long term (current) use of 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; W18.39XA Other fall on same level, initial encounter
CPT/HCPCS: 70450; 72125; 99284